=== PATIENT | male | born 1940 | race Caucasian/White ===

== ENCOUNTER 2017-11-16 15:50 | Inpatient (IN) | payer MEDICARE, BC, SELFPAY ==
[2017-11-16] VITALS (13 sets, daily range): BP systolic 128–150; BP diastolic 63–100; PULSE 84–113; RESP 18–28; TEMP 36.9–37.1; O2SAT 82–95; BMI 22.7; BMI 22.8; BMI 21.4
--- NOTE | 2017-11-16 16:06 | EKG12_ITS ---
Test Reason : SOB Blood Pressure : / mmHG Vent. Rate : 100 BPM Atrial Rate : 100 BPM P-R Int : 134 ms QRS Dur : 080 ms QT Int : 342 ms P-R-T Axes : 079 -48 -03 degrees QTc Int : 441 ms Sinus rhythm with occasional Premature ventricular complexes Left anterior fascicular block Nonspecific ST abnormality Abnormal ECG Confirmed by RIKY RAMIREZ, ANDERSON ([id number]), deputy editor in chief SEN ROMAN ([id number]) on 11/19/2017 2:11:01 PM Referred By: GRIFFIN Confirmed By:ANDERSON LAN MD
--- NOTE | 2017-11-16 16:07 | RAD_ITS ---
STUDY: X-RAY CHEST REASON FOR EXAM: Male, 77 years old. Short of breath. TECHNIQUE: Frontal and lateral views of the chest. COMPARISON: None. FINDINGS: There is hyperexpansion of the lungs. There is interstitial density throughout the left lung which could be fibrosis or infiltrate. Bullous disease and areas of scarring are seen in both lungs. No effusions. Normal size heart. Normal mediastinum and tono. Normal visualized pulmonary arteries. There is atherosclerotic calcification of the aortic arch with tortuosity. Normal visualized thoracic spine. Normal visualized ribs, clavicles, and shoulders. There is no demonstrated abnormality of the visualized soft tissue structures of the upper abdomen. RAD/Chest PA and Lateral IMPRESSION: Bullous COPD with fibrosis and scarring. On the left cannot exclude inflammatory infiltrates. Electronically Signed: Jay Jay Gabriel MD at 17:29 EDT , Service support ,
--- NOTE | 2017-11-16 16:14 | ED.VISSUMM ---
- ER Visit Summary Date of Service: 11/16/17 Chief Complaint: Patient presents with increased shortness of breath over the past several days History of Present Illness: The patient is a 77 M who has history of COPD on continuous oxygen. He states his pulse ox ranges between 8890% at rest and drops to the upper 70s with activity. He also increases his oxygen flow with activity. He does complain of subjective fever with chills. Complains of left-sided pleuritic pain. He states he has productive cough of white creamy sputum that looks like melted vanilla ice cream. He denies headache. Denies any ocular, visual auditory symptoms. Denies nasal congestion, rhinorrhea, postnasal drainage. He denies earache or sore throat. He does report palpitations. Does report dyspnea on exertion. He denies orthopnea PND. He denies history coronary disease. Has no history of PE DVT and has no risk factors. He denies any leg pain, swelling discoloration. He denies hematemesis, melena hematochezia. Denies dysuria, frequency, urgency or hematuria. Physical Examination: Vital signs remarkable for heart rate 113 and respiratory to 26. On 3 L his O2 saturations 82%. He appears ill. He is much warmer to touch than documented temperature. Head is atraumatic normocephalic. Pupils are equal round reactive. Extraocular muscles are intact. TMs are pearly white with landmarks noted. Nares patent with no drainage. Posterior pharynx without erythema or exudate. Uvula is midline. There is no dysphonia or dysphasia. Trachea is midline. There is no stridor with auscultation of the neck. Lungs reveal minimal air movement with high-pitched wheezing on forced expiration. Heart is rapid and regular. Abdomen is soft nontender. There is no CVA tenderness noted. There is no asymmetry, swelling, discoloration, leg vein distention, palpable cords or tenderness along the distribution of the deep venous system. He is alert oriented ?3 with a nonfocal neurologic exam. Test Results: EKG reveals a sinus rhythm rate of 100 with a left anterior fascicular block and a flipped T-wave in 3 which is a normal variant. White count elevated 17.6 thousand with 90 segs. BUN and creatinine are 39 2.28. Patient states creatinine baseline is 2.2. Lactate is 1.1. Two-view chest x-ray reveals interstitial changes left side. Emergency Department Course and Treatment: Patient's oxygen was increased to achieve a saturation between 90 and 88%. He will receive 125 mg Solu-Medrol. He states he has not received Solu-Medrol or any steroids for 1 year. At that time he was admitted and diagnosed with pneumonia. Will obtain EKG to rule out cardiac ischemia or evidence of right heart strain to suggest pulmonary embolus. Appropriate blood work was ordered. He also received DuoNeb followed by 2 albuterol treatments. Treatment Plan: Patient has sepsis from Commit acquired pneumonia and exacerbation COPD. He was treated with DuoNeb and albuterol initially. He will receive 1 g Rocephin and 500 mg of azithromycin for community acquired pneumonia. Disposition: Admit MedSurg Impression: 1. Respiratory failure with hypoxia 2. Community acquired pneumonia 3. Exacerbation of COPD with bronchospasm 4. End-stage renal disease This note was generated with [employer] dictation software. It may contain incorrect words, spelling, and punctuation that were not noted in review of the chart prior to signing ED Disposition - Plan for ED Patient: Chief Complaint: Shortness of Breath Referrals: Azael Malone [Primary Care Provider] -
--- NOTE | 2017-11-16 16:17 | ED.DCSUM_ITS ---
- ER Visit Summary Date of Service: 11/16/17 Chief Complaint: Patient presents with increased shortness of breath over the past several days History of Present Illness: The patient is a 77 M who has history of COPD on continuous oxygen. He states his pulse ox ranges between 8890% at rest and drops to the upper 70s with activity. He also increases his oxygen flow with activity. He does complain of subjective fever with chills. Complains of left- sided pleuritic pain. He states he has productive cough of white creamy sputum that looks like melted vanilla ice cream. He denies headache. Denies any ocular, visual auditory symptoms. Denies nasal congestion, rhinorrhea, postnasal drainage. He denies earache or sore throat. He does report palpitations. Does report dyspnea on exertion. He denies orthopnea PND. He denies history coronary disease. Has no history of PE DVT and has no risk factors. He denies any leg pain, swelling discoloration. He denies hematemesis , melena hematochezia. Denies dysuria, frequency, urgency or hematuria. Physical Examination: Vital signs remarkable for heart rate 113 and respiratory to 26. On 3 L his O2 saturations 82%. He appears ill. He is much warmer to touch than documented temperature. Head is atraumatic normocephalic. Pupils are equal round reactive. Extraocular muscles are intact. TMs are pearly white with landmarks noted. Nares patent with no drainage. Posterior pharynx without erythema or exudate. Uvula is midline. There is no dysphonia or dysphasia. Trachea is midline. There is no stridor with auscultation of the neck. Lungs reveal minimal air movement with high-pitched wheezing on forced expiration. Heart is rapid and regular. Abdomen is soft nontender. There is no CVA tenderness noted. There is no asymmetry, swelling, discoloration, leg vein distention, palpable cords or tenderness along the distribution of the deep venous system. He is alert oriented ?3 with a nonfocal neurologic exam. Test Results: EKG reveals a sinus rhythm rate of 100 with a left anterior fascicular block and a flipped T-wave in 3 which is a normal variant. White count elevated 17.6 thousand with 90 segs. BUN and creatinine are 39 2.28. Patient states creatinine baseline is 2.2. Lactate is 1.1. Two-view chest x- ray reveals interstitial changes left side. Emergency Department Course and Treatment: Patient's oxygen was increased to achieve a saturation between 90 and 88%. He will receive 125 mg Solu-Medrol. He states he has not received Solu-Medrol or any steroids for 1 year. At that time he was admitted and diagnosed with pneumonia. Will obtain EKG to rule out cardiac ischemia or evidence of right heart strain to suggest pulmonary embolus. Appropriate blood work was ordered. He also received DuoNeb followed by 2 albuterol treatments. Treatment Plan: Patient has sepsis from Commit acquired pneumonia and exacerbation COPD. He was treated with DuoNeb and albuterol initially. He will receive 1 g Rocephin and 500 mg of azithromycin for community acquired pneumonia. Disposition: Admit MedSurg Impression: 1. Respiratory failure with hypoxia 2. Community acquired pneumonia 3. Exacerbation of COPD with bronchospasm 4. End-stage renal disease This note was generated with [employer] dictation software. It may contain incorrect words, spelling, and punctuation that were not noted in review of the chart prior to signing ED Disposition - Plan for ED Patient: Chief Complaint: Shortness of Breath Referrals: Azael Malone [Primary Care Provider] -
[2017-11-16] MEDS: Ipratropium/Albuterol Sulfate 3 ML AMPUL.NEB INHALATION ×3 (16:27→22:40)
[2017-11-16] MEDS: Albuterol 2.5 MG/3 ML VIAL.NEB. INHALATION ×3 (16:27)
[2017-11-16] MEDS: MethylPREDNISolone 125 MG/2 ML Vial IV (16:49)
[2017-11-16 16:56] LABS: Absolute Lymphocyte Count 0.48 X10^3/ul (0.83-4.51); Absolute Neutrophil Count 15.9 X10^3/uL (2.0-7.7); Basophil# 0.02 X10^3/uL; Basophil% 0.1 % (0-1); Eosinophil# 0.01 X10^3/uL; Eosinophils% 0.1 % (0-5); Hematocrit 39.7 % (40-54); Hemoglobin 14.5 g/dl (13.0-16.5); Lymphocyte # 0.48 X10^3/ul (4.0); Lymphocyte % 2.7 % (19-41); Mean Corp Hgb Conc 36.5 g/gl (32-36); Mean Corpuscular Hgb 39.1 pg (27.0-32.0); Mean Platelet Vol. 11.7 fl (6.2-12.0); Monocyte% 6.2 % (0-10); Neutrophil # 15.91 X10^3/uL (2.7-7.7); Neutrophil % 90.2 % (47-70); Platelet Count 133 K/mm3 (150-450); RBC Distribution Width CV 14.3 % (11.6-14.6); RBC Distribution Width SD 55.9 fl (35.1-43.9); Red Blood Count 3.71 M/mm3 (4.6-6.2); White Blood Count 17.6 K/mm3 (4.4-11.0)
[2017-11-16 17:02] LABS: POSITIVE COUNT NO; POSITIVE DIFFERENTIAL YES; POSITIVE MORPHOLOGY NO
[2017-11-16 17:03] LABS: Differential Indicated SCAN CRITERIA MET
[2017-11-16 17:05] LABS: Anion Gap 10 (5-15); BUN 39 mg/dL (7-18); BUN/Creat Ratio 17.1 RATIO (10-20); Calcium,Total 9.1 mg/dL (8.5-10.1); Chloride 108 mmol/L (98-107); Creatinine, Serum 2.28 mg/dL (0.70-1.30); EST Glomerular Filtration Rate 30 mL/min (>60); Est Glom Filt Rate - Afr Amer 36 mL/min (>60); Glucose 105 mg/dL (74-106); Potassium 4.6 mmol/L (3.5-5.1); Sodium Level 140 mmol/L (136-145)
[2017-11-16 17:09] LABS: Lactic Acid 1.1 mmol/L (0.4-2.0)
--- NOTE | 2017-11-16 17:50 | PCM.HP.STD ---
<Camilla Miller - Last Filed: 11/16/17 18:12> Problem List (1) CKD (chronic kidney disease) stage 3, GFR 30-59 ml/min Status: Chronic (2) COPD (chronic obstructive pulmonary disease) Status: Chronic (3) Chronic respiratory failure with hypoxia Status: Chronic (4) Gout Status: Chronic (5) History of bladder cancer Status: Chronic (6) HTN (hypertension) Status: Chronic (7) HLD (hyperlipidemia) Status: Chronic (8) GERD (gastroesophageal reflux disease) Status: Chronic History of Present Illness Date of Admission: 11/16/17 Chief Complaint: Worsening shortness of breath. The patient is a 77 year old M who presents to the emergency room with worsening shortness of breath which began this morning. Patient states he has had ongoing shortness of breath beyond his baseline for the past few weeks. He states he attributed it to the hot temperature and humidity. Today, he states he went out golfing since the weather was cooler and developed significant shortness of breath. He denies fever, reports chills. Reports chronic productive cough of vanilla sputum. Denies chest pain. Patient has required supplemental oxygen since 2008 and recently has required oxygen above his baseline. He typically wears 2-3 L nasal cannula. In the past he states he has only needed oxygen at night however recently has been wearing it continuously to maintain oxygen saturation. Patient follows with a airport operations coordinator in [place]. He had a recent CT scan at [facility]. He is unaware of the results of this. Patient states a year ago he was admitted to [facility] with pneumonia and MRSA in sputum. He states his hospital stay was 22 days. He states during his stay, the doctors wanted to do a bronchoscopy but were unable to due to patient unable to maintain adequate oxygen saturation. Patient and moved to [place] in the past few months and wished to obtain pulmonary care in [place]. He has a past medical history of hypertension, hyperlipidemia, GERD, gout, history of bladder cancer, COPD with chronic hypoxic respiratory failure, chronic kidney disease stage III. Past Medical History Past Medical History (Chronic Problems): Chronic Problems CKD (chronic kidney disease) stage 3, GFR 30-59 ml/min (Chronic) COPD (chronic obstructive pulmonary disease) (Chronic) Chronic respiratory failure with hypoxia (Chronic) Gout (Chronic) History of bladder cancer (Chronic) HTN (hypertension) (Chronic) HLD (hyperlipidemia) (Chronic) GERD (gastroesophageal reflux disease) (Chronic) Allergies No Known Allergies Allergy (Verified 11/16/17 15:59) Home Medications: Ambulatory Orders Medication Instructions Recorded Allopurinol [Zyloprim] 200 mg PO DAILY 11/16/17 Aspirin [Aspirin, Baby] 81 mg PO QHS 11/16/17 Cyanocobalamin [Vitamin B12] 1,000 mcg PO DAILY@0800 11/16/17 Fluticasone/Vilanterol [Breo 1 puff INHALATION DAILY 11/16/17 Ellipta 100-25 Mcg INH] Metoprolol Succinate 12.5 mg PO DAILY 11/16/17 Omeprazole 20 mg PO QHS 11/16/17 Tiotropium [place] [Spiriva] 1 puff INHALATION DAILY 11/16/17 hydrALAZINE [Apresoline] 50 mg PO BID 11/16/17 Surgical History: adenoidectomy, TURP, - - Right carotid endarterectomy Psychiatric History: No pertinent psych hx Lives: Spouse/ Significant Other Smoking Status: Former smoker - 45 year smoking history Alcohol: Occasional - 2-3 times per week Drugs: None - *Family History Maternal History Items: Cancer - Lung Paternal History Items: Heart Disease - Pacemaker Review of Systems Constitutional: Reports: Chills. Denies: Fever, Weight Change HEENT: Denies: Head Aches, Sinus Congestion, Sinus Drainage Cardiovascular: Denies: Chest Pain, Edema, Light Headedness, Palpitations, Syncope Respiratory: Reports: Cough, Shortness of breath at rest, Shortness of breath upon exertion, Sputum production - White colored, Wheezing Gastrointestinal: Denies: Abdominal Pain, Nausea, Vomiting Genitourinary: Denies: Dysuria Musculoskeletal: Denies: Joint Pain, Joint Tenderness Skin: Denies: Rash, Wounds Neurological: Denies: Numbness, Tingling, Focal weakness Psychiatric: Denies: Anxiety, Depression, Homicidal Ideations, Suicidal Ideations Hematologic/ Lymphatic: Denies: Easy Bruising, Easy Bleeding VTE Information - Inpt Only VTE Present on Admission: No VTE Mechan Device Prophylaxis: None VTE Pharm Prophylaxis ordered?: Yes - Physical Exam General: Alert, Oriented x3, Cooperative, - - Face appears flushed, mild respiratory distress HEENT: Atraumatic, PERRLA, EOMI, Normocephalic Oral: Dry Mucosa Neck: Supple, No JVD, Negative Carotid Bruits Lungs: Diminished, Wheezes - Minimal faint expiratory wheezes Cardiovascular: Regular Rhythm, Normal S1, Normal S2, No murmurs, Tachycardic Abdomen: Bowel Sounds Present, Soft, Non Tender, Non-Distended Extremities: No clubbing, No cyanosis, No edema, Capillary Refill Less than 3 Seconds Skin: No rashes, No breakdown Musculoskeletal: No Tenderness to Palpation of Joints or Extremities Neurological: Cranial nerves II-XII grossly intact, Neuro grossly intact Psych/Mental Status: Normal Affect, Appropriate Vital Signs Temp Pulse Resp BP Pulse Ox 98.6 F 108 H 24 H 150/100 H 89 11/16/17 15:55 11/16/17 16:30 11/16/17 16:30 11/16/17 15:55 11/16/17 16:30 Oxygen Flow Rate (L/min) 6 Oxygen Delivery Method Nasal Cannula Weight: 74 kg Body Mass Index (BMI) 22.7 Laboratory Tests Past 24 Hrs 11/16/17 11/16/17 11/16/17 16:22 16:22 16:22 WBC 17.6 H RBC 3.71 L Hgb 14.5 Hct 39.7 L MCV 107.0 H MCH 39.1 H MCHC 36.5 H RDW 14.3 RDW Differential 55.9 H Plt Count 133 L MPV 11.7 Immature Gran % (Auto) 0.700 Neut % (Auto) 90.2 H Lymph % (Auto) 2.7 L [place] % (Auto) 6.2 Eos % (Auto) 0.1 Baso % (Auto) 0.1 Absolute Neuts (auto) 15.9 H Absolute Lymphs (auto) 0.48 L Total Counted Not Reportable Differential Comment Sodium 140 Potassium 4.6 Chloride 108 H Carbon Dioxide 22.0 Anion Gap 10 BUN 39 H Creatinine 2.28 H Estim Creat Clear Calc 29.30 Est GFR (MDRD) Af Amer 36 L Est GFR (MDRD) Non-Af 30 L BUN/Creatinine Ratio 17.1 Glucose 105 Lactic Acid 1.1 Calcium 9.1 Assessment/Plan 1. Acute COPD exacerbation secondary to suspected community-acquired pneumonia-patient with productive cough, fever, chills. WBC 17.6. Patient with mild tachycardia. 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 Cannot exclude inflammatory infiltrates on the left. Patient has a history of MRSA in sputum. Obtain sputum culture. Begin IV Levaquin. Begin IV Solu-Medrol. Check urine for strep and Legionella. Obtain complete respiratory panel. Continue supplemental oxygen to maintain O2 at or above 90%. Albuterol and DuoNeb aerosols. Consult pulmonary medicine. Patient would like to transition care to [facility]. Patient reports recent CTA chest at [facility]. Request records. 2. Acute hypoxia on chronic hypoxic respiratory failure-secondary to #1. Continue supplemental oxygen to maintain O2 at or above 90%. Albuterol and DuoNeb aerosols. 3. Chronic kidney disease stage III-patient reports baseline creatinine 2.2-2.3. Follows with heavy equipment technician in [place]. Creatinine on admission 2.2. Trend BMP. 4. Hypertension-stable, continue home regimen including hydralazine and metoprolol. 5. Hyperlipidemia-patient reports intolerance to statins. Check fasting lipid panel in a.m. If elevated, can begin fenofibrate and or omega-3 fatty acids. 6. GERD-continue PPI. 7. Gout-continue home allopurinol regimen. 8. History of bladder cancer 9. History of tobacco use-quit in 2008. [id number] history. DVT prophylaxis-heparin subcu. This patient was seen by YONI Robert under the supervision of Dr. Sanz. <Patricia Sanz E - Last Filed: 11/16/17 18:27> History of Present Illness The patient is a 77 year old M [] Past Medical History Allergies No Known Allergies Allergy (Verified 11/16/17 15:59) - Physical Exam Vital Signs Temp Pulse Resp BP Pulse Ox 98.6 F 110 H 24 H 149/65 H 90 11/16/17 15:55 11/16/17 17:54 11/16/17 17:54 11/16/17 17:54 11/16/17 17:54 Oxygen Flow Rate (L/min) 6 Oxygen Delivery Method Nasal Cannula Weight: 163 lb 2.273 oz Body Mass Index (BMI) 22.7 Laboratory Tests Past 24 Hrs 11/16/17 11/16/17 11/16/17 16:22 16:22 16:22 WBC 17.6 H RBC 3.71 L Hgb 14.5 Hct 39.7 L MCV 107.0 H MCH 39.1 H MCHC 36.5 H RDW 14.3 RDW Differential 55.9 H Plt Count 133 L MPV 11.7 Immature Gran % (Auto) 0.700 Neut % (Auto) 90.2 H Lymph % (Auto) 2.7 L [place] % (Auto) 6.2 Eos % (Auto) 0.1 Baso % (Auto) 0.1 Absolute Neuts (auto) 15.9 H Absolute Lymphs (auto) 0.48 L Total Counted Not Reportable Differential Comment Sodium 140 Potassium 4.6 Chloride 108 H Carbon Dioxide 22.0 Anion Gap 10 BUN 39 H Creatinine 2.28 H Estim Creat Clear Calc 29.30 Est GFR (MDRD) Af Amer 36 L Est GFR (MDRD) Non-Af 30 L BUN/Creatinine Ratio 17.1 Glucose 105 Lactic Acid 1.1 Calcium 9.1 Assessment/Plan Hospitalist note: I am seeing this patient in conjunction with Camilla Miller. I independently seen and examined the patient. History and physical, laboratory data and imaging studies reviewed and I agree with above admission treatment plan. Patient presented to the medicine because of worsening shortness of breath over the last few days, got more worse this morning. It is associated with cough with small amount of yellow sputum. Denies fever or chills. He denied chest pain, palpitation, dizziness or lightheadedness. He does have history of severe COPD, has been on home oxygen since 2008. History of hypertension and she has been on metoprolol and hydralazine and his blood pressure seems to be under control. He has history of gout and he has been on allopurinol. He has a history of stage III chronic kidney disease and according to him, his baseline creatinine has been around 2.2. At this time, he is tachycardic, blood pressure stable, pulse ox is 93% on 6 L. - Physical Exam General: Alert, Oriented x3, Cooperative, moderately short of breath. HEENT: Atraumatic, PERRLA, EOMI. Neck: Supple, No JVD, Negative Carotid Bruits, Trachea Midline, Thyroid Normal. Lungs: Decreased breath sounds bilaterally, bilateral expiratory wheezes,?? Bronchial breathing on the left side, short of breath, dyspneic. Cardiovascular: Regular rate, Regular Rhythm, Normal S1, Normal S2, PMI Normal, tachycardia. Abdomen: Bowel Sounds Present, Soft, Non Tender, Non-Distended, No Hepato-splenomegaly. Extremities: No clubbing, No cyanosis, No edema Skin: No rashes, No breakdown Neurological: Neuro grossly intact Assessment and plan: #1 acute COPD exacerbation: Plan for bronchodilators, IV steroids, IV antibiotics, chest physical therapy, sputum culture, respiratory panel for viruses, incentive spirometer, pulmonology consult. #2 acute on chronic hypoxic respiratory failure: Patient has been on oxygen at 2 L, at this time, he is up to 6 L. It is secondary to above, plan as above, ABG, pulmonary consult. #3 suspected metabolic pneumonia: Chest x-ray reviewed, revealed left mid and lower zone reticular shadowing, could be infiltrate. No previous x-ray to compare. Plan for sputum culture, IV Levaquin. #3 other chronic medical problems: Stable, continue current medications as above. This note was generated with [employer] dictation software. It may contain incorrect words, spelling, and punctuation that were not noted in checking the note before signing. Code Visit Inpatient E&M: 73979 Init Hosp L3
[2017-11-16] MEDS: Ceftriaxone 1 GM/50 ML BAG IV (17:54)
--- NOTE | 2017-11-16 17:58 | HP.PCM_ITS ---
<Camilla Miller - Last Filed: 11/16/17 18:12> Problem List (1) CKD (chronic kidney disease) stage 3, GFR 30-59 ml/min Status: Chronic (2) COPD (chronic obstructive pulmonary disease) Status: Chronic (3) Chronic respiratory failure with hypoxia Status: Chronic (4) Gout Status: Chronic (5) History of bladder cancer Status: Chronic (6) HTN (hypertension) Status: Chronic (7) HLD (hyperlipidemia) Status: Chronic (8) GERD (gastroesophageal reflux disease) Status: Chronic History of Present Illness Date of Admission: 11/16/17 Chief Complaint: Worsening shortness of breath. The patient is a 77 year old M who presents to the emergency room with worsening shortness of breath which began this morning. Patient states he has had ongoing shortness of breath beyond his baseline for the past few weeks. He states he attributed it to the hot temperature and humidity. Today, he states he went out golfing since the weather was cooler and developed significant shortness of breath. He denies fever, reports chills. Reports chronic productive cough of vanilla sputum. Denies chest pain. Patient has required supplemental oxygen since 2008 and recently has required oxygen above his baseline. He typically wears 2-3 L nasal cannula. In the past he states he has only needed oxygen at night however recently has been wearing it continuously to maintain oxygen saturation. 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 He had a recent CT scan at [facility]. He is unaware of the results of this. Patient states a year ago he was admitted to [facility] with pneumonia and MRSA in sputum. He states his hospital stay was 22 days. He states during his stay, the doctors wanted to do a bronchoscopy but were unable to due to patient unable to maintain adequate oxygen saturation. Patient and moved to [place] in the past few months and wished to obtain pulmonary care in [place]. He has a past medical history of hypertension, hyperlipidemia, GERD, gout, history of bladder cancer, COPD with chronic hypoxic respiratory failure, chronic kidney disease stage III. Past Medical History Past Medical History (Chronic Problems): Chronic Problems CKD (chronic kidney disease) stage 3, GFR 30-59 ml/min (Chronic) COPD (chronic obstructive pulmonary disease) (Chronic) Chronic respiratory failure with hypoxia (Chronic) Gout (Chronic) History of bladder cancer (Chronic) HTN (hypertension) (Chronic) HLD (hyperlipidemia) (Chronic) GERD (gastroesophageal reflux disease) (Chronic) Allergies No Known Allergies Allergy (Verified 11/16/17 15:59) Home Medications: Ambulatory Orders Medication Instructions Recorded Allopurinol [Zyloprim] 200 mg PO DAILY 11/16/17 Aspirin [Aspirin, Baby] 81 mg PO QHS 11/16/17 Cyanocobalamin [Vitamin B12] 1,000 mcg PO DAILY@0800 11/16/17 Fluticasone/Vilanterol [Breo 1 puff INHALATION DAILY 11/16/17 Ellipta 100-25 Mcg INH] Metoprolol Succinate 12.5 mg PO DAILY 11/16/17 Omeprazole 20 mg PO QHS 11/16/17 Tiotropium [place] [Spiriva] 1 puff INHALATION DAILY 11/16/17 hydrALAZINE [Apresoline] 50 mg PO BID 11/16/17 Surgical History: adenoidectomy, TURP, - - Right carotid endarterectomy Psychiatric History: No pertinent psych hx Lives: Spouse/ Significant Other Smoking Status: Former smoker - 45 year smoking history Alcohol: Occasional - 2-3 times per week Drugs: None - *Family History Maternal History Items: Cancer - Lung Paternal History Items: Heart Disease - Pacemaker Review of Systems Constitutional: Reports: Chills. Denies: Fever, Weight Change HEENT: Denies: Head Aches, Sinus Congestion, Sinus Drainage Cardiovascular: Denies: Chest Pain, Edema, Light Headedness, Palpitations, Syncope Respiratory: Reports: Cough, Shortness of breath at rest, Shortness of breath upon exertion, Sputum production - White colored, Wheezing Gastrointestinal: Denies: Abdominal Pain, Nausea, Vomiting Genitourinary: Denies: Dysuria Musculoskeletal: Denies: Joint Pain, Joint Tenderness Skin: Denies: Rash, Wounds Neurological: Denies: Numbness, Tingling, Focal weakness Psychiatric: Denies: Anxiety, Depression, Homicidal Ideations, Suicidal Ideations Hematologic/ Lymphatic: Denies: Easy Bruising, Easy Bleeding VTE Information - Inpt Only VTE Present on Admission: No VTE Mechan Device Prophylaxis: None VTE Pharm Prophylaxis ordered?: Yes - Physical Exam General: Alert, Oriented x3, Cooperative, - - Face appears flushed, mild respiratory distress HEENT: Atraumatic, PERRLA, EOMI, Normocephalic Oral: Dry Mucosa Neck: Supple, No JVD, Negative Carotid Bruits Lungs: Diminished, Wheezes - Minimal faint expiratory wheezes Cardiovascular: Regular Rhythm, Normal S1, Normal S2, No murmurs, Tachycardic Abdomen: Bowel Sounds Present, Soft, Non Tender, Non-Distended Extremities: No clubbing, No cyanosis, No edema, Capillary Refill Less than 3 Seconds Skin: No rashes, No breakdown Musculoskeletal: No Tenderness to Palpation of Joints or Extremities Neurological: Cranial nerves II-XII grossly intact, Neuro grossly intact Psych/Mental Status: Normal Affect, Appropriate Vital Signs Temp Pulse Resp BP Pulse Ox 98.6 F 108 H 24 H 150/100 H 89 11/16/17 15:55 11/16/17 16:30 11/16/17 16:30 11/16/17 15:55 11/16/17 16:30 Oxygen Flow Rate (L/min) 6 Oxygen Delivery Method Nasal Cannula Weight: 74 kg Body Mass Index (BMI) 22.7 Laboratory Tests Past 24 Hrs 11/16/17 11/16/17 11/16/17 16:22 16:22 16:22 WBC 17.6 H RBC 3.71 L Hgb 14.5 Hct 39.7 L MCV 107.0 H MCH 39.1 H MCHC 36.5 H RDW 14.3 RDW Differential 55.9 H Plt Count 133 L MPV 11.7 Immature Gran % (Auto) 0.700 Neut % (Auto) 90.2 H Lymph % (Auto) 2.7 L [place] % (Auto) 6.2 Eos % (Auto) 0.1 Baso % (Auto) 0.1 Absolute Neuts (auto) 15.9 H Absolute Lymphs (auto) 0.48 L Total Counted Not Reportable Differential Comment Sodium 140 Potassium 4.6 Chloride 108 H Carbon Dioxide 22.0 Anion Gap 10 BUN 39 H Creatinine 2.28 H Estim Creat Clear Calc 29.30 Est GFR (MDRD) Af Amer 36 L Est GFR (MDRD) Non-Af 30 L BUN/Creatinine Ratio 17.1 Glucose 105 Lactic Acid 1.1 Calcium 9.1 Assessment/Plan 1. Acute COPD exacerbation secondary to suspected community-acquired pneumonia- patient with productive cough, fever, chills. WBC 17.6. Patient with mild tachycardia. 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 Cannot exclude inflammatory infiltrates on the left. Patient has a history of MRSA in sputum. Obtain sputum culture. Begin IV Levaquin. Begin IV Solu- Medrol. Check urine for strep and Legionella. Obtain complete respiratory panel. Continue supplemental oxygen to maintain O2 at or above 90%. Albuterol and DuoNeb aerosols. Consult pulmonary medicine. Patient would like to transition care to [facility]. Patient reports recent CTA chest at [facility]. Request records. 2. Acute hypoxia on chronic hypoxic respiratory failure-secondary to #1. Continue supplemental oxygen to maintain O2 at or above 90%. Albuterol and DuoNeb aerosols. 3. Chronic kidney disease stage III-patient reports baseline creatinine 2.2- 2.3. Follows with manager care in [place]. Creatinine on admission 2.2. Trend BMP. 4. Hypertension-stable, continue home regimen including hydralazine and metoprolol. 5. Hyperlipidemia-patient reports intolerance to statins. Check fasting lipid panel in a.m. If elevated, can begin fenofibrate and or omega-3 fatty acids. 6. GERD-continue PPI. 7. Gout-continue home allopurinol regimen. 8. History of bladder cancer 9. History of tobacco use-quit in 2008. [id number] history. DVT prophylaxis-heparin subcu. This patient was seen by YONI Robert under the supervision of Dr. Sanz. <Patricia Sanz E - Last Filed: 11/16/17 18:27> History of Present Illness The patient is a 77 year old M [] Past Medical History Allergies No Known Allergies Allergy (Verified 11/16/17 15:59) - Physical Exam Vital Signs Temp Pulse Resp BP Pulse Ox 98.6 F 110 H 24 H 149/65 H 90 11/16/17 15:55 11/16/17 17:54 11/16/17 17:54 11/16/17 17:54 11/16/17 17:54 Oxygen Flow Rate (L/min) 6 Oxygen Delivery Method Nasal Cannula Weight: 163 lb 2.273 oz Body Mass Index (BMI) 22.7 Laboratory Tests Past 24 Hrs 11/16/17 11/16/17 11/16/17 16:22 16:22 16:22 WBC 17.6 H RBC 3.71 L Hgb 14.5 Hct 39.7 L MCV 107.0 H MCH 39.1 H MCHC 36.5 H RDW 14.3 RDW Differential 55.9 H Plt Count 133 L MPV 11.7 Immature Gran % (Auto) 0.700 Neut % (Auto) 90.2 H Lymph % (Auto) 2.7 L [place] % (Auto) 6.2 Eos % (Auto) 0.1 Baso % (Auto) 0.1 Absolute Neuts (auto) 15.9 H Absolute Lymphs (auto) 0.48 L Total Counted Not Reportable Differential Comment Sodium 140 Potassium 4.6 Chloride 108 H Carbon Dioxide 22.0 Anion Gap 10 BUN 39 H Creatinine 2.28 H Estim Creat Clear Calc 29.30 Est GFR (MDRD) Af Amer 36 L Est GFR (MDRD) Non-Af 30 L BUN/Creatinine Ratio 17.1 Glucose 105 Lactic Acid 1.1 Calcium 9.1 Assessment/Plan Hospitalist note: I am seeing this patient in conjunction with Camilla Miller. I independently seen and examined the patient. History and physical, laboratory data and imaging studies reviewed and I agree with above admission treatment plan. Patient presented to the medicine because of worsening shortness of breath over the last few days, got more worse this morning. It is associated with cough with small amount of yellow sputum. Denies fever or chills. He denied chest pain, palpitation, dizziness or lightheadedness. He does have history of severe COPD, has been on home oxygen since 2008. History of hypertension and she has been on metoprolol and hydralazine and his blood pressure seems to be under control. He has history of gout and he has been on allopurinol. He has a history of stage III chronic kidney disease and according to him, his baseline creatinine has been around 2.2. At this time, he is tachycardic, blood pressure stable, pulse ox is 93% on 6 L. - Physical Exam General: Alert, Oriented x3, Cooperative, moderately short of breath. HEENT: Atraumatic, PERRLA, EOMI. Neck: Supple, No JVD, Negative Carotid Bruits, Trachea Midline, Thyroid Normal. Lungs: Decreased breath sounds bilaterally, bilateral expiratory wheezes,?? Bronchial breathing on the left side, short of breath, dyspneic. Cardiovascular: Regular rate, Regular Rhythm, Normal S1, Normal S2, PMI Normal, tachycardia. Abdomen: Bowel Sounds Present, Soft, Non Tender, Non-Distended, No Hepato- splenomegaly. Extremities: No clubbing, No cyanosis, No edema Skin: No rashes, No breakdown Neurological: Neuro grossly intact Assessment and plan: #1 acute COPD exacerbation: Plan for bronchodilators, IV steroids, IV antibiotics, chest physical therapy, sputum culture, respiratory panel for viruses, incentive spirometer, pulmonology consult. #2 acute on chronic hypoxic respiratory failure: Patient has been on oxygen at 2 L, at this time, he is up to 6 L. It is secondary to above, plan as above, ABG, pulmonary consult. #3 suspected metabolic pneumonia: Chest x-ray reviewed, revealed left mid and lower zone reticular shadowing, could be infiltrate. No previous x-ray to compare. Plan for sputum culture, IV Levaquin. #3 other chronic medical problems: Stable, continue current medications as above. This note was generated with [employer] dictation software. It may contain incorrect words, spelling, and punctuation that were not noted in checking the note before signing. Code Visit Inpatient E&M: 09872 Init Hosp L3
--- NOTE | 2017-11-16 18:01 | NURSING ---
MED SURG COOPD EXAC, ACUTE ON CHRONIC RESP FAILURE, PNEUMONIA SALLY
[2017-11-16 20:21] LABS: Allen Test POS; Base Excess -8 mmol/L (-2 to +2); Blood Gas Specimen Type ART; O2 Delivery Device Nasal Can; PO2 71 mmHG (75-100); SITE R Radial; SO2 94 % (95-99); Time Given 2010; Total Carbon Dioxide 18 mmol/L; pCO2 29.4 mmHg (35-45); pH 7.37 (7.35-7.45)
[2017-11-16] MEDS: Heparin Injection (Vial) 5,000 UNIT/ML VIAL 5000 UNIT SC (22:53)
[2017-11-16] MEDS: 0.9% NaCl Peripheral Flush Adult/Peds IV (22:53)
[2017-11-16] MEDS: levoFLOXacin IV 750 MG/150 ML BAG 100 MG IV (22:54)
[2017-11-17] VITALS (18 sets, daily range): BP systolic 130–169; BP diastolic 62–85; PULSE 78–111; RESP 19–24; TEMP 36.6–36.7; O2SAT 89–94
[2017-11-17] MEDS: Fluticasone 0.05% 1 SPRAY NASAL.SRY NASAL ×2 (05:58→21:55)
[2017-11-17] MEDS: 0.9% NaCl Peripheral Flush Adult/Peds IV ×3 (06:00→13:29)
[2017-11-17] MEDS: Heparin Injection (Vial) 5,000 UNIT/ML VIAL 5000 UNIT SC ×3 (06:03→21:54)
[2017-11-17] MEDS: Ipratropium/Albuterol Sulfate 3 ML AMPUL.NEB INHALATION ×4 (07:17→23:01)
--- NOTE | 2017-11-17 07:19 | PCM.PN.HOSP ---
Subjective: Patient is a 77-year-old with past medical history notable for chronic hypoxic respiratory failure secondary to COPD who presented with progressive shortness of breath again imaging studies 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 On the left cannot exclude inflammatory infiltrates; admitted to regular nursing floor where patient has since been managed. Objective: GENERAL: Dyspneic at rest HEENT: Clear conjunctiva, moist oral mucosa NECK; supple, normal thyroid, no distended JVD. CHEST: Markedly diminished to auscultation with bilateral wheezes HEART: Regular S1 S2, no audible murmurs ABDOMEN: soft, non-tender, normoactive bowel sounds, RECTAL: deferred EXTREMITIES: No edema, no clubbing, no cyanosis. FOUNDRY MOLDER: Awake; no lateralizing signs. SKIN: No Rash Vitals/I&O's: Vital Signs Temp Pulse Resp BP Pulse Ox 97.8 F 95 22 H 142/67 H 93 11/17/17 04:00 11/17/17 04:00 11/17/17 04:00 11/17/17 04:00 11/17/17 04:00 Oxygen Flow Rate (L/min) 4 Oxygen Delivery Method Nasal Cannula Weight: 69.853 kg Body Mass Index (BMI) 21.4 Intake and Output for Last 24 Hours 11/15/17 11/16/17 11/17/17 23:59 23:59 23:59 Intake Total 2700 / 2700 Output Total 0 / 0 Balance 2700 / 2700 Microbiology Past 72 Hours 11/16/17 20:00 Sputum, Expectorated/Coughed Gram Stain - Preliminary Laboratory Results 11/16/17 20:14: Specimen Type ART, Sample Site R Radial, pH 7.37, Bicarbonate Actual 17.0 L, POC Total CO2 18, Base Excess -8 L, O2 Saturation 94 L, ABG pCO2 29.4 L, ABG pO2 71 L, Humberto Test POS, O2 Delivery Device Nasal Can, Liter Flow 6.0, Blood Gas Notified Whom HOSP , Blood Gas Notified Time 2009 Current Medications Acetaminophen (Tylenol) 650 mg PO Q6H PRN PRN PRN Reason: Mild Pain (scale 0-3)/T>100.7 Albuterol Sulfate (Ventolin Aerosols) 2.5 mg INHALATION Q2H PRN PRN PRN Reason: SHORTNESS OF BREATH Albuterol/Ipratropium (Duoneb) 3 ml INHALATION Q4H.RT [facility] Last Admin: 11/17/17 07:17 Dose: 3 ml Allopurinol (Zyloprim) 200 mg PO DAILY [facility] Aspirin (Aspirin, Baby) 81 mg PO QHS [facility] Cyanocobalamin (Vitamin B12) 1,000 mcg PO DAILY@0800 [facility] Fluticasone Propionate (Flonase Nasal [place]) 1 spray NASAL DAILY PRN PRN Reason: ALLERGIES Last Admin: 11/17/17 05:58 Dose: 1 spray Heparin Sodium (Porcine) (Heparin Na) 5,000 unit SC Q8 [facility] Last Admin: 11/17/17 06:03 Dose: 5,000 units Hydralazine HCl (Apresoline) 50 mg PO BID [facility] Levofloxacin (Levaquin Iv) 750 mg in 150 mls @ 100 mls/hr IV Q48H [facility] Last Admin: 11/16/17 22:54 Dose: 100 mls/hr Magnesium Hydroxide (Milk Of Magnesia) 30 ml PO DAILY PRN PRN PRN Reason: Constipation Methylprednisolone (Solu-Medrol) 40 mg IV Q8 [facility] Last Admin: 11/17/17 06:02 Dose: 40 mg Metoprolol Succinate (Toprol Xl (Beta Sergio)) 12.5 mg PO DAILY [facility] Ondansetron HCl (Zofran) 4 mg IV Q8H PRN PRN PRN Reason: Nausea Pantoprazole Sodium (Protonix) 20 mg PO QHS [facility] Sodium Chloride () 5 - 30 ml IV UD PRN PRN Reason: SALINE FLUSH Last Admin: 11/17/17 06:00 Dose: 10 ml Medical Necessity - Tobacco Use Smoking Status: Former smoker Assessment/Plan Patient is a 77-year-old with past medical history notable for chronic hypoxic respiratory failure secondary to COPD who presented with progressive shortness of breath again imaging studies 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 On the left cannot exclude inflammatory infiltrates; admitted to regular nursing floor where patient has since been managed. 1. Acute on chronic hypoxic respiratory failure secondary to COPD exacerbation 2. COPD exacerbation possibly preceded by suspected community-acquired pneumonia admitted to regular nursing floor managed with systemic steroid, bronchodilator therapy as well as antibiotics with Levaquin 3. Chronic hypoxic respiratory failure secondary to COPD patient is on baseline home O2 4. Chronic kidney disease stage III-10 kidney function at baseline 5. Hypertension-blood pressure controlled, home medications continued with dose adjustment as needed 6. Dyslipidemia- 7. Hiatal hernia with reflux symptoms patient is on PPI 8. Gout patient is on allopurinol did continue home dose 9. History of bladder CA currently in remission 10. [id number] history of tobacco use patient did quit in 2008 11. DVT prophylaxis SC heparin 12. Postnasal drip patient is on nasocort Active Medications Acetaminophen (Tylenol) 650 mg PO Q6H PRN PRN PRN Reason: Mild Pain (scale 0-3)/T>100.7 Albuterol Sulfate (Ventolin Aerosols) 2.5 mg INHALATION Q2H PRN PRN PRN Reason: SHORTNESS OF BREATH Albuterol/Ipratropium (Duoneb) 3 ml INHALATION Q4H.RT [facility] Last Admin: 11/17/17 07:17 Dose: 3 ml Allopurinol (Zyloprim) 200 mg PO DAILY [facility] Aspirin (Aspirin, Baby) 81 mg PO QHS [facility] Cyanocobalamin (Vitamin B12) 1,000 mcg PO DAILY@0800 [facility] Fluticasone Propionate (Flonase Nasal [place]) 1 spray NASAL DAILY PRN PRN Reason: ALLERGIES Last Admin: 11/17/17 05:58 Dose: 1 spray Heparin Sodium (Porcine) (Heparin Na) 5,000 unit SC Q8 [facility] Last Admin: 11/17/17 06:03 Dose: 5,000 units Hydralazine HCl (Apresoline) 50 mg PO BID [facility] Levofloxacin (Levaquin Iv) 750 mg in 150 mls @ 100 mls/hr IV Q48H [facility] Last Admin: 11/16/17 22:54 Dose: 100 mls/hr Magnesium Hydroxide (Milk Of Magnesia) 30 ml PO DAILY PRN PRN PRN Reason: Constipation Methylprednisolone (Solu-Medrol) 40 mg IV Q8 [facility] Last Admin: 11/17/17 06:02 Dose: 40 mg Metoprolol Succinate (Toprol Xl (Beta Sergio)) 12.5 mg PO DAILY [facility] Ondansetron HCl (Zofran) 4 mg IV Q8H PRN PRN PRN Reason: Nausea Pantoprazole Sodium (Protonix) 20 mg PO QHS [facility] Sodium Chloride () 5 - 30 ml IV UD PRN PRN Reason: SALINE FLUSH Last Admin: 11/17/17 06:00 Dose: 10 ml Clinical Impression(s) from Imaging Studies Chest X-Ray 11/16/17 16:07 IMPRESSION: Bullous COPD with fibrosis and scarring. On the left cannot exclude inflammatory infiltrates. Electronically Signed: Jay Jay Gabriel MD at 17:29 EDT , Service support , Code Visit Inpatient E&M: 10163 Subs Hosp L3
[2017-11-17] MEDS: Allopurinol 100 MG Tablet 200 MG PO (08:05)
[2017-11-17] MEDS: Metoprolol(XL)Succ 25 MG Tablet 12.5 MG PO (08:05)
[2017-11-17] MEDS: Cyanocobalamin 500 MCG Tablet 1000 MCG PO (08:05)
[2017-11-17] MEDS: hydrALAZINE 50 MG Tablet PO ×2 (08:06→21:54)
[2017-11-17 08:54] LABS: Absolute Lymphocyte Count 0.83 X10^3/ul (0.83-4.51); Absolute Neutrophil Count 23.3 X10^3/uL (2.0-7.7); Basophil# 0.01 X10^3/uL; Hematocrit 38.8 % (40-54); Hemoglobin 13.3 g/dl (13.0-16.5); Lymphocyte # 0.83 X10^3/ul (4.0); Lymphocyte % 3.3 % (19-41); Mean Corp Hgb Conc 34.3 g/gl (32-36); Mean Corpuscular Hgb 37.2 pg (27.0-32.0); Mean Corpuscular Volume 108.4 fL (80-94); Mean Platelet Vol. 11.3 fl (6.2-12.0); Monocyte# 0.61 X10^3/uL; Monocyte% 2.5 % (0-10); Neutrophil # 23.34 X10^3/uL (2.7-7.7); Neutrophil % 93.9 % (47-70); Platelet Count 112 K/mm3 (150-450); RBC Distribution Width CV 14.8 % (11.6-14.6); Red Blood Count 3.58 M/mm3 (4.6-6.2); White Blood Count 24.9 K/mm3 (4.4-11.0)
[2017-11-17 08:57] LABS: Differential Indicated SCAN CRITERIA MET; POSITIVE COUNT NO; POSITIVE DIFFERENTIAL YES; POSITIVE MORPHOLOGY NO
--- NOTE | 2017-11-17 08:59 | PCA ---
In to receive signature to obtain pt medical records from [facility]. Pt stated he was also seen at [facility] in November 2016. Faxed signed release of medical records to [employer] as well as [facility].
[2017-11-17 09:15] LABS: Platelet Estimate SLT DEC (ADEQ); Platelet Morphology LARGE
[2017-11-17 09:16] LABS: Differential Comment SCANNED
[2017-11-17 09:23] LABS: Anion Gap 13 (5-15); BUN 41 mg/dL (7-18); BUN/Creat Ratio 19.3 RATIO (10-20); Calcium,Total 8.8 mg/dL (8.5-10.1); Chloride 101 mmol/L (98-107); Creatinine, Serum 2.12 mg/dL (0.70-1.30); EST Glomerular Filtration Rate 33 mL/min (>60); Est Glom Filt Rate - Afr Amer 39 mL/min (>60); Estimated Creatinine Clearance 29.75 ml/min; Glucose 129 mg/dL (74-106); Potassium 4.3 mmol/L (3.5-5.1); Sodium Level 133 mmol/L (136-145)
--- NOTE | 2017-11-17 14:06 | CM.UR ---
Met face to face with patient around 10:20am. Patient denies any discharge needs except assistance with oxygen. States that he has a concentrator at home. States he has the regular tanks but those are too big for his to bring in at discharge. States that he has small tanks that he fills however they are currently empty and his doesn't know how to fill them. Vet is requesting tank to go home with. Explained we can check with [employer] to see if we can get him one. No other needs anticipated at this time. Golden Saavedra RN, CCM.
[2017-11-17] MEDS: Pantoprazole Sodium 20 MG Tablet PO (21:54)
[2017-11-17] MEDS: Aspirin 81 MG TAB.CHEW PO (21:54)
[2017-11-18] VITALS (16 sets, daily range): BP systolic 132–170; BP diastolic 66–91; PULSE 72–100; RESP 18–22; TEMP 36.4–37.2; O2SAT 76–94
[2017-11-18] MEDS: Heparin Injection (Vial) 5,000 UNIT/ML VIAL 5000 UNIT SC (05:24)
[2017-11-18] MEDS: 0.9% NaCl Peripheral Flush Adult/Peds IV ×3 (05:24→21:01)
[2017-11-18] MEDS: Ipratropium/Albuterol Sulfate 3 ML AMPUL.NEB INHALATION ×5 (06:58→23:35)
[2017-11-18] MEDS: Metoprolol(XL)Succ 25 MG Tablet 12.5 MG PO (07:51)
[2017-11-18] MEDS: hydrALAZINE 50 MG Tablet PO ×2 (07:52→20:55)
[2017-11-18] MEDS: Allopurinol 100 MG Tablet 200 MG PO (07:52)
[2017-11-18] MEDS: Cyanocobalamin 500 MCG Tablet 1000 MCG PO (07:52)
--- NOTE | 2017-11-18 08:10 | PCM.CONS.GEN ---
Reason for Consult Date of Consultation: 11/18/17 Reason for Consultation: COPD exacerbation History of Present Illness: The patient is a 77-year-old male, with a history as outlined below, who initially presented to the emergency department on November 16 with progressive shortness of breath and hypoxia. The patient reports a history of COPD, for which she has previously been followed by Dr. To Casey in [place]. He is currently on a triple therapy inhaler regimen as an outpatient with [facility]. He endorses a [id number] smoking history, having quit completely in 2008. The patient is currently prescribed 2 L/min of supplemental oxygen at night, but reports that he uses it periodically throughout the day when he is doing strenuous physical activity. He has baseline exertional dyspnea. He does report that he feels as if the recent heat and humidity is what led to his acute decompensation in his breathing quality. 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 He has chronic postnasal drip, along with an intermittently productive cough. The patient does report that he also recently underwent a chest CT within the last several weeks, which was completed at [facility]. A record request has already been sent. On presentation to the emergency department, the patient was noted to be afebrile, tachycardic and hemodynamically stable. He was tachypneic and requiring between 3 and 6 L/min of supplemental oxygen to maintain saturations. Laboratory evaluation revealed elevated white blood cell count to 18,000. Chemistry profile revealed elevated creatinine of 2.28, of unknown chronicity. Serum lactate was within normal limits. Arterial blood gas on 6 L/min revealed a pH of 7.37 with a PO2 of 71 and PCO2 of 29. Plain film chest x-ray revealed hyperinflated lung bermudez with emphysematous changes bilaterally and diffuse interstitial prominence most pronounced at the left hemithorax, which is likely environmental marketing representative of fibrosis or scarring. The patient received aerosol treatments, antibiotics and steroids. He was subsequently admitted to the medical surgical floor for ongoing management. The patient's hospital course has included treatment with Levaquin, IV steroids and serial aerosol treatments. The patient was seen ambulating in the hallway this morning and readily desaturated into the low 80s on 4 L/min. He was visibly dyspneic following attempts at ambulation. Past Medical History Past Medical History (Chronic Problems): Chronic Problems CKD (chronic kidney disease) stage 3, GFR 30-59 ml/min (Chronic) COPD (chronic obstructive pulmonary disease) (Chronic) Chronic respiratory failure with hypoxia (Chronic) Gout (Chronic) History of bladder cancer (Chronic) HTN (hypertension) (Chronic) HLD (hyperlipidemia) (Chronic) GERD (gastroesophageal reflux disease) (Chronic) Allergies No Known Allergies Allergy (Verified 11/16/17 15:59) Home Medications: Ambulatory Orders Medication Instructions Recorded Allopurinol [Zyloprim] 200 mg PO DAILY 11/16/17 Aspirin [Aspirin, Baby] 81 mg PO QHS 11/16/17 Cyanocobalamin [Vitamin B12] 1,000 mcg PO DAILY@0800 11/16/17 Fluticasone/Vilanterol [Breo 1 puff INHALATION DAILY 11/16/17 Ellipta 100-25 Mcg INH] Metoprolol Succinate 12.5 mg PO DAILY 11/16/17 Omeprazole 20 mg PO QHS 11/16/17 Tiotropium [place] [Spiriva] 1 puff INHALATION DAILY 11/16/17 hydrALAZINE [Apresoline] 50 mg PO BID 11/16/17 Surgical History: adenoidectomy, TURP, - - Right carotid endarterectomy Psychiatric History: No pertinent psych hx Lives: Spouse/ Significant Other Smoking Status: Former smoker Alcohol: Occasional - 2-3 times per week Drugs: None - *Family History Maternal History Items: Cancer - Lung Paternal History Items: Heart Disease - Pacemaker Review of Systems Constitutional: Denies: Chills, Fever Eyes: Denies: Blurred vision, Double vision HEENT: Reports: Post Nasal Drip, -. Denies: Head Aches, Sinus Congestion, Sinus Drainage Cardiovascular: Denies: Chest Pain, Palpitations Respiratory: Reports: Cough, Shortness of Breath Gastrointestinal: Denies: Abdominal Pain, Nausea, Vomiting Genitourinary: Denies: Dysuria Musculoskeletal: Denies: Joint Pain, Joint Tenderness Skin: Denies: Rash, Wounds Neurological: Denies: Numbness, Tingling, Focal weakness Psychiatric: Denies: Anxiety, Depression, Homicidal Ideations, Suicidal Ideations Hematologic/ Lymphatic: Denies: Easy Bruising, Easy Bleeding Objective: The patient's most recent lab work, culture data and imaging studies have all been personally reviewed. Sputum culture appears to be normal respiratory carmen. Respiratory viral panel was negative. - Physical Exam General: Alert, Cooperative, - - Visibly dyspneic following attempted ambulation in the hallway HEENT: Atraumatic, PERRLA, Normocephalic Oral: No Gingival or Mucosal Lesions/ Ulcerations Neck: Supple, No Nodes, Trachea Midline Lungs: - - Globally diminished air movement bilaterally without appreciable wheezes, rales or rhonchi. Cardiovascular: Regular rate, Regular Rhythm, Normal S1, Normal S2, No murmurs, No rub noted, No Gallop Abdomen: Bowel Sounds Present, Soft, Non Tender, Non-Distended Extremities: No clubbing, No cyanosis, No edema Skin: No breakdown Musculoskeletal: No Tenderness to Palpation of Joints or Extremities, No Muscle Wasting Lymphatic: No Cervical, Supraclavicular, or Inguinal Adenopathy Neurological: Neuro grossly intact Psych/Mental Status: Alert and oriented to time, place, person, mood and affect Vital Signs Temp Pulse Resp BP Pulse Ox 97.6 F L 72 18 132/78 H 93 11/18/17 07:44 11/18/17 07:52 11/18/17 07:44 11/18/17 07:44 11/18/17 07:46 Oxygen Flow Rate (L/min) 4 Oxygen Delivery Method Nasal Cannula Weight: 154 lb Body Mass Index (BMI) 21.4 Intake and Output for Last 24 Hours 11/16/17 11/17/17 11/18/17 23:59 23:59 23:59 Intake Total 3420 / 3420 250 / 250 Output Total 850 / 850 600 / 600 Balance 2570 / 2570 -350 / -350 Microbiology Past 72 Hours 11/16/17 20:00 Gram Stain - Final Sputum, Expectorated/Coughed Respiratory Culture - Preliminary Appears to be normal respiratory carmen. Further studies to follow. 11/16/17 19:45 Respiratory Panel (PCR) - Final Mucosa - Nasopharyngeal Laboratory Tests Past 24 Hrs 11/17/17 11/17/17 08:03 08:03 WBC 24.9 H RBC 3.58 L Hgb 13.3 Hct 38.8 L MCV 108.4 H MCH 37.2 H MCHC 34.3 RDW 14.8 H RDW Differential 59.0 H Plt Count 112 L MPV 11.3 Immature Gran % (Auto) 0.300 Neut % (Auto) 93.9 H Lymph % (Auto) 3.3 L [place] % (Auto) 2.5 Eos % (Auto) 0.0 Baso % (Auto) 0.0 Absolute Neuts (auto) 23.3 H Absolute Lymphs (auto) 0.83 Total Counted Not Reportable Differential Comment SCANNED Platelet Estimate SLT DEC Plt Morphology Comment LARGE Sodium 133 L Potassium 4.3 Chloride 101 Carbon Dioxide 19.0 L Anion Gap 13 BUN 41 H Creatinine 2.12 H Estim Creat Clear Calc 29.75 Est GFR (MDRD) Af Amer 39 L Est GFR (MDRD) Non-Af 33 L BUN/Creatinine Ratio 19.3 Glucose 129 H Calcium 8.8 Clinical Impression(s) from Imaging Studies Chest X-Ray 11/16/17 16:07 IMPRESSION: Bullous COPD with fibrosis and scarring. On the left cannot exclude inflammatory infiltrates. Electronically Signed: Jay Jay Gabriel MD at 17:29 EDT , Service support , Assessment/Plan RECOMMENDATIONS: 1. Continue scheduled bronchodilators and steroids. 2. Continue antibiotics, pending infectious workup. 3. Wean supplemental oxygen to maintain saturations at or above 88%. Encourage incentive spirometer use. 4. Plan to repeat walking oximetry study tomorrow. 5. Obtain report from recent CT chest completed through [facility] 6. Continue Lovenox for DVT prophylaxis 7. Patient is wishing to establish care the pulmonary medicine of [place]. Please ensure that he has a follow-up visit scheduled within 2 weeks of his discharge from the hospital. IMPRESSIONS: 1. Acute on chronic hypoxemic respiratory failure, likely secondary to COPD with exacerbation Although the patient may have infectious infiltrates on plain film chest imaging, the findings appear to be more suggestive of interstitial fibrosis. In addition, the patient reports only having utilized supplemental oxygen on an as-needed basis in his home environment previously. It is highly likely that he has been progressive hypoxic for prolonged period of time. He is wishing to transfer his pulmonary care here to [facility]. He also reports having had a CT chest completed just recently through [facility]. The records for that imaging study are currently pending. Agree with continuing empiric antibiotics for now, along with IV steroids and scheduled bronchodilators. The patient is on a triple therapy inhaler regimen as an outpatient, which would likely suggest advanced stage COPD. Continue to wean supplemental oxygen to maintain saturations at or above 88%. Repeat walking oximetry study tomorrow. Plan for the patient to follow-up in the pulmonary medicine clinic within 2 weeks of his discharge from the hospital. 2. Allergic rhinitis/postnasal drip Continue Flonase as ordered. 3. History of tobacco abuse, in remission/history of bladder cancer/gout/hyperlipidemia/hypertension/chronic kidney disease Complicates care, management, recovery and prognosis. Continue home medications as indicated. Continue work with physical therapy. This note was generated with [employer] dictation software. It may contain incorrect words, spelling, and punctuation that were not noted in checking the note before signing. Code Visit Inpatient E&M: 07625 Init Hosp L3
--- NOTE | 2017-11-18 08:14 | CON.PCM_ITS ---
Reason for Consult Date of Consultation: 11/18/17 Reason for Consultation: COPD exacerbation History of Present Illness: The patient is a 77-year-old male, with a history as outlined below, who initially presented to the emergency department on November 16 with progressive shortness of breath and hypoxia. The patient reports a history of COPD, for which she has previously been followed by Dr. To Casey in [place]. He is currently on a triple therapy inhaler regimen as an outpatient with [facility]. He endorses a [id number] smoking history, having quit completely in 2008. The patient is currently prescribed 2 L/min of supplemental oxygen at night, but reports that he uses it periodically throughout the day when he is doing strenuous physical activity. He has baseline exertional dyspnea. He does report that he feels as if the recent heat and humidity is what led to his acute decompensation in his breathing quality. 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 He has chronic postnasal drip, along with an intermittently productive cough. The patient does report that he also recently underwent a chest CT within the last several weeks, which was completed at [facility]. A record request has already been sent. On presentation to the emergency department, the patient was noted to be afebrile, tachycardic and hemodynamically stable. He was tachypneic and requiring between 3 and 6 L/min of supplemental oxygen to maintain saturations. Laboratory evaluation revealed elevated white blood cell count to 18,000. Chemistry profile revealed elevated creatinine of 2.28, of unknown chronicity. Serum lactate was within normal limits. Arterial blood gas on 6 L/min revealed a pH of 7.37 with a PO2 of 71 and PCO2 of 29. Plain film chest x-ray revealed hyperinflated lung bermudez with emphysematous changes bilaterally and diffuse interstitial prominence most pronounced at the left hemithorax, which is likely environmental marketing representative of fibrosis or scarring. The patient received aerosol treatments , antibiotics and steroids. He was subsequently admitted to the medical surgical floor for ongoing management. The patient's hospital course has included treatment with Levaquin, IV steroids and serial aerosol treatments. The patient was seen ambulating in the hallway this morning and readily desaturated into the low 80s on 4 L/min. He was visibly dyspneic following attempts at ambulation. Past Medical History Past Medical History (Chronic Problems): Chronic Problems CKD (chronic kidney disease) stage 3, GFR 30-59 ml/min (Chronic) COPD (chronic obstructive pulmonary disease) (Chronic) Chronic respiratory failure with hypoxia (Chronic) Gout (Chronic) History of bladder cancer (Chronic) HTN (hypertension) (Chronic) HLD (hyperlipidemia) (Chronic) GERD (gastroesophageal reflux disease) (Chronic) Allergies No Known Allergies Allergy (Verified 11/16/17 15:59) Home Medications: Ambulatory Orders Medication Instructions Recorded Allopurinol [Zyloprim] 200 mg PO DAILY 11/16/17 Aspirin [Aspirin, Baby] 81 mg PO QHS 11/16/17 Cyanocobalamin [Vitamin B12] 1,000 mcg PO DAILY@0800 11/16/17 Fluticasone/Vilanterol [Breo 1 puff INHALATION DAILY 11/16/17 Ellipta 100-25 Mcg INH] Metoprolol Succinate 12.5 mg PO DAILY 11/16/17 Omeprazole 20 mg PO QHS 11/16/17 Tiotropium [place] [Spiriva] 1 puff INHALATION DAILY 11/16/17 hydrALAZINE [Apresoline] 50 mg PO BID 11/16/17 Surgical History: adenoidectomy, TURP, - - Right carotid endarterectomy Psychiatric History: No pertinent psych hx Lives: Spouse/ Significant Other Smoking Status: Former smoker Alcohol: Occasional - 2-3 times per week Drugs: None - *Family History Maternal History Items: Cancer - Lung Paternal History Items: Heart Disease - Pacemaker Review of Systems Constitutional: Denies: Chills, Fever Eyes: Denies: Blurred vision, Double vision HEENT: Reports: Post Nasal Drip, -. Denies: Head Aches, Sinus Congestion, Sinus Drainage Cardiovascular: Denies: Chest Pain, Palpitations Respiratory: Reports: Cough, Shortness of Breath Gastrointestinal: Denies: Abdominal Pain, Nausea, Vomiting Genitourinary: Denies: Dysuria Musculoskeletal: Denies: Joint Pain, Joint Tenderness Skin: Denies: Rash, Wounds Neurological: Denies: Numbness, Tingling, Focal weakness Psychiatric: Denies: Anxiety, Depression, Homicidal Ideations, Suicidal Ideations Hematologic/ Lymphatic: Denies: Easy Bruising, Easy Bleeding Objective: The patient's most recent lab work, culture data and imaging studies have all been personally reviewed. Sputum culture appears to be normal respiratory carmen. Respiratory viral panel was negative. - Physical Exam General: Alert, Cooperative, - - Visibly dyspneic following attempted ambulation in the hallway HEENT: Atraumatic, PERRLA, Normocephalic Oral: No Gingival or Mucosal Lesions/ Ulcerations Neck: Supple, No Nodes, Trachea Midline Lungs: - - Globally diminished air movement bilaterally without appreciable wheezes, rales or rhonchi. Cardiovascular: Regular rate, Regular Rhythm, Normal S1, Normal S2, No murmurs, No rub noted, No Gallop Abdomen: Bowel Sounds Present, Soft, Non Tender, Non-Distended Extremities: No clubbing, No cyanosis, No edema Skin: No breakdown Musculoskeletal: No Tenderness to Palpation of Joints or Extremities, No Muscle Wasting Lymphatic: No Cervical, Supraclavicular, or Inguinal Adenopathy Neurological: Neuro grossly intact Psych/Mental Status: Alert and oriented to time, place, person, mood and affect Vital Signs Temp Pulse Resp BP Pulse Ox 97.6 F L 72 18 132/78 H 93 11/18/17 07:44 11/18/17 07:52 11/18/17 07:44 11/18/17 07:44 11/18/17 07:46 Oxygen Flow Rate (L/min) 4 Oxygen Delivery Method Nasal Cannula Weight: 154 lb Body Mass Index (BMI) 21.4 Intake and Output for Last 24 Hours 11/16/17 11/17/17 11/18/17 23:59 23:59 23:59 Intake Total 3420 / 3420 250 / 250 Output Total 850 / 850 600 / 600 Balance 2570 / 2570 -350 / -350 Microbiology Past 72 Hours 11/16/17 20:00 Gram Stain - Final Sputum, Expectorated/Coughed Respiratory Culture - Preliminary Appears to be normal respiratory carmen. Further studies to follow. 11/16/17 19:45 Respiratory Panel (PCR) - Final Mucosa - Nasopharyngeal Laboratory Tests Past 24 Hrs 11/17/17 11/17/17 08:03 08:03 WBC 24.9 H RBC 3.58 L Hgb 13.3 Hct 38.8 L MCV 108.4 H MCH 37.2 H MCHC 34.3 RDW 14.8 H RDW Differential 59.0 H Plt Count 112 L MPV 11.3 Immature Gran % (Auto) 0.300 Neut % (Auto) 93.9 H Lymph % (Auto) 3.3 L [place] % (Auto) 2.5 Eos % (Auto) 0.0 Baso % (Auto) 0.0 Absolute Neuts (auto) 23.3 H Absolute Lymphs (auto) 0.83 Total Counted Not Reportable Differential Comment SCANNED Platelet Estimate SLT DEC Plt Morphology Comment LARGE Sodium 133 L Potassium 4.3 Chloride 101 Carbon Dioxide 19.0 L Anion Gap 13 BUN 41 H Creatinine 2.12 H Estim Creat Clear Calc 29.75 Est GFR (MDRD) Af Amer 39 L Est GFR (MDRD) Non-Af 33 L BUN/Creatinine Ratio 19.3 Glucose 129 H Calcium 8.8 Clinical Impression(s) from Imaging Studies Chest X-Ray 11/16/17 16:07 IMPRESSION: Bullous COPD with fibrosis and scarring. On the left cannot exclude inflammatory infiltrates. Electronically Signed: Jay Jay Gabriel MD at 17:29 EDT , Service support , Assessment/Plan RECOMMENDATIONS: 1. Continue scheduled bronchodilators and steroids. 2. Continue antibiotics, pending infectious workup. 3. Wean supplemental oxygen to maintain saturations at or above 88%. Encourage incentive spirometer use. 4. Plan to repeat walking oximetry study tomorrow. 5. Obtain report from recent CT chest completed [facility] 6. Continue Lovenox for DVT prophylaxis 7. Patient is wishing to establish care the pulmonary medicine of [place]. Please ensure that he has a follow-up visit scheduled within 2 weeks of his discharge from the hospital. IMPRESSIONS: 1. Acute on chronic hypoxemic respiratory failure, likely secondary to COPD with exacerbation Although the patient may have infectious infiltrates on plain film chest imaging , the findings appear to be more suggestive of interstitial fibrosis. In addition, the patient reports only having utilized supplemental oxygen on an as- needed basis in his home environment previously. It is highly likely that he has been progressive hypoxic for prolonged period of time. He is wishing to transfer his pulmonary care here to [facility]. He also reports having had a CT chest completed just recently through [facility]. The records for that imaging study are currently pending. Agree with continuing empiric antibiotics for now, along with IV steroids and scheduled bronchodilators. The patient is on a triple therapy inhaler regimen as an outpatient, which would likely suggest advanced stage COPD. Continue to wean supplemental oxygen to maintain saturations at or above 88%. Repeat walking oximetry study tomorrow. Plan for the patient to follow-up in the pulmonary medicine clinic within 2 weeks of his discharge from the hospital. 2. Allergic rhinitis/postnasal drip Continue Flonase as ordered. 3. History of tobacco abuse, in remission/history of bladder cancer/gout/ hyperlipidemia/hypertension/chronic kidney disease Complicates care, management, recovery and prognosis. Continue home medications as indicated. Continue work with physical therapy. This note was generated with [employer] dictation software. It may contain incorrect words, spelling, and punctuation that were not noted in checking the note before signing. Code Visit Inpatient E&M: 08659 Init Hosp L3
--- NOTE | 2017-11-18 08:40 | PCM.PN.HOSP ---
Subjective: Patient seen still remains relatively dyspneic at rest. Patient became significantly hypoxic with ambulation dropping to 77 did discuss with patient and Dr. Velásquez about patient being discharged home on continuous O2 when stable for discharge Objective: GENERAL: Dyspneic at rest HEENT: Clear conjunctiva, moist oral mucosa NECK; supple, normal thyroid, no distended JVD. CHEST: Markedly diminished to auscultation with bilateral wheezes HEART: Regular S1 S2, no audible murmurs ABDOMEN: soft, non-tender, normoactive bowel sounds, RECTAL: deferred EXTREMITIES: No edema, no clubbing, cyanotic SCREEN WRITER: Awake; no lateralizing signs. SKIN: No Rash Vitals/I&O's: Vital Signs Temp Pulse Resp BP Pulse Ox 97.6 F L 72 18 132/78 H 93 11/18/17 07:44 11/18/17 07:52 11/18/17 07:44 11/18/17 07:44 11/18/17 07:46 Oxygen Flow Rate (L/min) 4 Oxygen Delivery Method Nasal Cannula Weight: 69.853 kg Body Mass Index (BMI) 21.4 Intake and Output for Last 24 Hours 11/16/17 11/17/17 11/18/17 23:59 23:59 23:59 Intake Total 3420 / 3420 250 / 250 Output Total 850 / 850 600 / 600 Balance 2570 / 2570 -350 / -350 Microbiology Past 72 Hours 11/16/17 20:00 Sputum, Expectorated/Coughed Gram Stain - Final 11/16/17 20:00 Sputum, Expectorated/Coughed Respiratory Culture - Preliminary Appears to be normal respiratory carmen. Further studies to follow. 11/16/17 19:45 Mucosa - Nasopharyngeal Respiratory Panel (PCR) - Final Laboratory Results 11/17/17 08:03: WBC 24.9 H, RBC 3.58 L, Hgb 13.3, Hct 38.8 L, MCV 108.4 H, MCH 37.2 H, MCHC 34.3, RDW 14.8 H, RDW Differential 59.0 H, Plt Count 112 L, MPV 11.3, Immature Gran % (Auto) 0.300, Neut % (Auto) 93.9 H, Lymph % (Auto) 3.3 L, [place] % (Auto) 2.5, Eos % (Auto) 0.0, Baso % (Auto) 0.0, Absolute Neuts (auto) 23.3 H, Absolute Lymphs (auto) 0.83, Total Counted Not Reportable, Differential Comment SCANNED, Platelet Estimate SLT DEC, Plt Morphology Comment LARGE 11/17/17 08:03: Sodium 133 L, Potassium 4.3, Chloride 101, Carbon Dioxide 19.0 L, Anion Gap 13, BUN 41 H, Creatinine 2.12 H, Estim Creat Clear Calc 29.75, Est GFR (MDRD) Af Amer 39 L, Est GFR (MDRD) Non-Af 33 L, BUN/Creatinine Ratio 19.3, Glucose 129 H, Calcium 8.8 Current Medications Acetaminophen (Tylenol) 650 mg PO Q6H PRN PRN PRN Reason: Mild Pain (scale 0-3)/T>100.7 Albuterol Sulfate (Ventolin Aerosols) 2.5 mg INHALATION Q2H PRN PRN PRN Reason: SHORTNESS OF BREATH Albuterol/Ipratropium (Duoneb) 3 ml INHALATION Q4H.RT [facility] Last Admin: 11/18/17 06:58 Dose: 3 ml Allopurinol (Zyloprim) 200 mg PO DAILY [facility] Last Admin: 11/18/17 07:52 Dose: 200 mg Aspirin (Aspirin, Baby) 81 mg PO QHS [facility] Last Admin: 11/17/17 21:54 Dose: 81 mg Cyanocobalamin (Vitamin B12) 1,000 mcg PO DAILY@0800 [facility] Last Admin: 11/18/17 07:52 Dose: 1,000 mcg Fluticasone Propionate (Flonase Nasal [place]) 1 spray NASAL BID PRN PRN PRN Reason: ALLERGIES Last Admin: 11/17/17 21:55 Dose: 1 spray Heparin Sodium (Porcine) (Heparin Na) 5,000 unit SC Q8 [facility] Last Admin: 11/18/17 05:24 Dose: 5,000 units Hydralazine HCl (Apresoline) 50 mg PO BID [facility] Last Admin: 11/18/17 07:52 Dose: 50 mg Levofloxacin (Levaquin Iv) 750 mg in 150 mls @ 100 mls/hr IV Q48H [facility] Last Admin: 11/16/17 22:54 Dose: 100 mls/hr Magnesium Hydroxide (Milk Of Magnesia) 30 ml PO DAILY PRN PRN PRN Reason: Constipation Methylprednisolone (Solu-Medrol) 40 mg IV Q8 [facility] Last Admin: 11/18/17 05:24 Dose: 40 mg Metoprolol Succinate (Toprol Xl (Beta Sergio)) 12.5 mg PO DAILY [facility] Last Admin: 11/18/17 07:51 Dose: 12.5 mg Ondansetron HCl (Zofran) 4 mg IV Q8H PRN PRN PRN Reason: Nausea Pantoprazole Sodium (Protonix) 20 mg PO QHS [facility] Last Admin: 11/17/17 21:54 Dose: 20 mg Sodium Chloride () 5 - 30 ml IV UD PRN PRN Reason: SALINE FLUSH Last Admin: 11/18/17 05:24 Dose: 20 ml Medical Necessity - Tobacco Use Smoking Status: Former smoker Assessment/Plan Patient is a 77-year-old with past medical history notable for chronic hypoxic respiratory failure secondary to COPD who presented with progressive shortness of breath again imaging studies 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 On the left cannot exclude inflammatory infiltrates; admitted to regular nursing floor where patient has since been managed. 1. Acute on chronic hypoxic respiratory failure secondary to COPD exacerbation 2. COPD exacerbation possibly preceded by suspected community-acquired pneumonia admitted to regular nursing floor managed with systemic steroid, bronchodilator therapy as well as antibiotics with Levaquin 3. Chronic hypoxic respiratory failure secondary to COPD patient is on baseline home O2 4. Chronic kidney disease stage III-10 kidney function at baseline 5. Hypertension-blood pressure controlled, home medications continued with dose adjustment as needed 6. Dyslipidemia- 7. Hiatal hernia with reflux symptoms patient is on PPI 8. Gout patient is on allopurinol did continue home dose 9. History of bladder CA currently in remission 10. [id number] history of tobacco use patient did quit in 2008 11. DVT prophylaxis SC heparin 12. Postnasal drip patient is on nasocort Active Medications Acetaminophen (Tylenol) 650 mg PO Q6H PRN PRN PRN Reason: Mild Pain (scale 0-3)/T>100.7 Albuterol Sulfate (Ventolin Aerosols) 2.5 mg INHALATION Q2H PRN PRN PRN Reason: SHORTNESS OF BREATH Albuterol/Ipratropium (Duoneb) 3 ml INHALATION Q4H.RT [facility] Last Admin: 11/17/17 07:17 Dose: 3 ml Allopurinol (Zyloprim) 200 mg PO DAILY [facility] Aspirin (Aspirin, Baby) 81 mg PO QHS [facility] Cyanocobalamin (Vitamin B12) 1,000 mcg PO DAILY@0800 [facility] Fluticasone Propionate (Flonase Nasal [place]) 1 spray NASAL DAILY PRN PRN Reason: ALLERGIES Last Admin: 11/17/17 05:58 Dose: 1 spray Heparin Sodium (Porcine) (Heparin Na) 5,000 unit SC Q8 [facility] Last Admin: 11/17/17 06:03 Dose: 5,000 units Hydralazine HCl (Apresoline) 50 mg PO BID [facility] Levofloxacin (Levaquin Iv) 750 mg in 150 mls @ 100 mls/hr IV Q48H [facility] Last Admin: 11/16/17 22:54 Dose: 100 mls/hr Magnesium Hydroxide (Milk Of Magnesia) 30 ml PO DAILY PRN PRN PRN Reason: Constipation Methylprednisolone (Solu-Medrol) 40 mg IV Q8 [facility] Last Admin: 11/17/17 06:02 Dose: 40 mg Metoprolol Succinate (Toprol Xl (Beta Sergio)) 12.5 mg PO DAILY [facility] Ondansetron HCl (Zofran) 4 mg IV Q8H PRN PRN PRN Reason: Nausea Pantoprazole Sodium (Protonix) 20 mg PO QHS [facility] Sodium Chloride () 5 - 30 ml IV UD PRN PRN Reason: SALINE FLUSH Last Admin: 11/17/17 06:00 Dose: 10 ml Clinical Impression(s) from Imaging Studies Chest X-Ray 11/16/17 16:07 IMPRESSION: Bullous COPD with fibrosis and scarring. On the left cannot exclude inflammatory infiltrates. Electronically Signed: Jay Jay Gabriel MD at 17:29 EDT , Service support , Code Visit Inpatient E&M: 36847 Subs Hosp L3
--- NOTE | 2017-11-18 08:45 | PN_ITS ---
Subjective: Patient seen still remains relatively dyspneic at rest. Patient became significantly hypoxic with ambulation dropping to 77 did discuss with patient and Dr. Velásquez about patient being discharged home on continuous O2 when stable for discharge Objective: GENERAL: Dyspneic at rest HEENT: Clear conjunctiva, moist oral mucosa NECK; supple, normal thyroid, no distended JVD. CHEST: Markedly diminished to auscultation with bilateral wheezes HEART: Regular S1 S2, no audible murmurs ABDOMEN: soft, non-tender, normoactive bowel sounds, RECTAL: deferred EXTREMITIES: No edema, no clubbing, cyanotic CHECK SCALER: Awake; no lateralizing signs. SKIN: No Rash Vitals/I&O's: Vital Signs Temp Pulse Resp BP Pulse Ox 97.6 F L 72 18 132/78 H 93 11/18/17 07:44 11/18/17 07:52 11/18/17 07:44 11/18/17 07:44 11/18/17 07:46 Oxygen Flow Rate (L/min) 4 Oxygen Delivery Method Nasal Cannula Weight: 69.853 kg Body Mass Index (BMI) 21.4 Intake and Output for Last 24 Hours 11/16/17 11/17/17 11/18/17 23:59 23:59 23:59 Intake Total 3420 / 3420 250 / 250 Output Total 850 / 850 600 / 600 Balance 2570 / 2570 -350 / -350 Microbiology Past 72 Hours 11/16/17 20:00 Sputum, Expectorated/Coughed Gram Stain - Final 11/16/17 20:00 Sputum, Expectorated/Coughed Respiratory Culture - Preliminary Appears to be normal respiratory carmen. Further studies to follow. 11/16/17 19:45 Mucosa - Nasopharyngeal Respiratory Panel (PCR) - Final Laboratory Results 11/17/17 08:03: WBC 24.9 H, RBC 3.58 L, Hgb 13.3, Hct 38.8 L, MCV 108.4 H, MCH 37.2 H, MCHC 34.3, RDW 14.8 H, RDW Differential 59.0 H, Plt Count 112 L, MPV 11.3, Immature Gran % (Auto) 0.300, Neut % (Auto) 93.9 H, Lymph % (Auto) 3.3 L, [place] % (Auto) 2.5, Eos % (Auto) 0.0, Baso % (Auto) 0.0, Absolute Neuts (auto) 23.3 H, Absolute Lymphs (auto) 0.83, Total Counted Not Reportable, Differential Comment SCANNED, Platelet Estimate SLT DEC, Plt Morphology Comment LARGE 11/17/17 08:03: Sodium 133 L, Potassium 4.3, Chloride 101, Carbon Dioxide 19.0 L , Anion Gap 13, BUN 41 H, Creatinine 2.12 H, Estim Creat Clear Calc 29.75, Est GFR (MDRD) Af Amer 39 L, Est GFR (MDRD) Non-Af 33 L, BUN/Creatinine Ratio 19.3, Glucose 129 H, Calcium 8.8 Current Medications Acetaminophen (Tylenol) 650 mg PO Q6H PRN PRN PRN Reason: Mild Pain (scale 0-3)/T>100.7 Albuterol Sulfate (Ventolin Aerosols) 2.5 mg INHALATION Q2H PRN PRN PRN Reason: SHORTNESS OF BREATH Albuterol/Ipratropium (Duoneb) 3 ml INHALATION Q4H.RT [facility] Last Admin: 11/18/17 06:58 Dose: 3 ml Allopurinol (Zyloprim) 200 mg PO DAILY [facility] Last Admin: 11/18/17 07:52 Dose: 200 mg Aspirin (Aspirin, Baby) 81 mg PO QHS [facility] Last Admin: 11/17/17 21:54 Dose: 81 mg Cyanocobalamin (Vitamin B12) 1,000 mcg PO DAILY@0800 [facility] Last Admin: 11/18/17 07:52 Dose: 1,000 mcg Fluticasone Propionate (Flonase Nasal [place]) 1 spray NASAL BID PRN PRN PRN Reason: ALLERGIES Last Admin: 11/17/17 21:55 Dose: 1 spray Heparin Sodium (Porcine) (Heparin Na) 5,000 unit SC Q8 [facility] Last Admin: 11/18/17 05:24 Dose: 5,000 units Hydralazine HCl (Apresoline) 50 mg PO BID [facility] Last Admin: 11/18/17 07:52 Dose: 50 mg Levofloxacin (Levaquin Iv) 750 mg in 150 mls @ 100 mls/hr IV Q48H [facility] Last Admin: 11/16/17 22:54 Dose: 100 mls/hr Magnesium Hydroxide (Milk Of Magnesia) 30 ml PO DAILY PRN PRN PRN Reason: Constipation Methylprednisolone (Solu-Medrol) 40 mg IV Q8 [facility] Last Admin: 11/18/17 05:24 Dose: 40 mg Metoprolol Succinate (Toprol Xl (Beta Sergio)) 12.5 mg PO DAILY [facility] Last Admin: 11/18/17 07:51 Dose: 12.5 mg Ondansetron HCl (Zofran) 4 mg IV Q8H PRN PRN PRN Reason: Nausea Pantoprazole Sodium (Protonix) 20 mg PO QHS [facility] Last Admin: 11/17/17 21:54 Dose: 20 mg Sodium Chloride () 5 - 30 ml IV UD PRN PRN Reason: SALINE FLUSH Last Admin: 11/18/17 05:24 Dose: 20 ml Medical Necessity - Tobacco Use Smoking Status: Former smoker Assessment/Plan Patient is a 77-year-old with past medical history notable for chronic hypoxic respiratory failure secondary to COPD who presented with progressive shortness of breath again imaging studies 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 On the left cannot exclude inflammatory infiltrates; admitted to regular nursing floor where patient has since been managed. 1. Acute on chronic hypoxic respiratory failure secondary to COPD exacerbation 2. COPD exacerbation possibly preceded by suspected community-acquired pneumonia admitted to regular nursing floor managed with systemic steroid, bronchodilator therapy as well as antibiotics with Levaquin 3. Chronic hypoxic respiratory failure secondary to COPD patient is on baseline home O2 4. Chronic kidney disease stage III-10 kidney function at baseline 5. Hypertension-blood pressure controlled, home medications continued with dose adjustment as needed 6. Dyslipidemia- 7. Hiatal hernia with reflux symptoms patient is on PPI 8. Gout patient is on allopurinol did continue home dose 9. History of bladder CA currently in remission 10. [id number] history of tobacco use patient did quit in 2008 11. DVT prophylaxis SC heparin 12. Postnasal drip patient is on nasocort Active Medications Acetaminophen (Tylenol) 650 mg PO Q6H PRN PRN PRN Reason: Mild Pain (scale 0-3)/T>100.7 Albuterol Sulfate (Ventolin Aerosols) 2.5 mg INHALATION Q2H PRN PRN PRN Reason: SHORTNESS OF BREATH Albuterol/Ipratropium (Duoneb) 3 ml INHALATION Q4H.RT [facility] Last Admin: 11/17/17 07:17 Dose: 3 ml Allopurinol (Zyloprim) 200 mg PO DAILY [facility] Aspirin (Aspirin, Baby) 81 mg PO QHS [facility] Cyanocobalamin (Vitamin B12) 1,000 mcg PO DAILY@0800 [facility] Fluticasone Propionate (Flonase Nasal [place]) 1 spray NASAL DAILY PRN PRN Reason: ALLERGIES Last Admin: 11/17/17 05:58 Dose: 1 spray Heparin Sodium (Porcine) (Heparin Na) 5,000 unit SC Q8 [facility] Last Admin: 11/17/17 06:03 Dose: 5,000 units Hydralazine HCl (Apresoline) 50 mg PO BID [facility] Levofloxacin (Levaquin Iv) 750 mg in 150 mls @ 100 mls/hr IV Q48H [facility] Last Admin: 11/16/17 22:54 Dose: 100 mls/hr Magnesium Hydroxide (Milk Of Magnesia) 30 ml PO DAILY PRN PRN PRN Reason: Constipation Methylprednisolone (Solu-Medrol) 40 mg IV Q8 [facility] Last Admin: 11/17/17 06:02 Dose: 40 mg Metoprolol Succinate (Toprol Xl (Beta Sergio)) 12.5 mg PO DAILY [facility] Ondansetron HCl (Zofran) 4 mg IV Q8H PRN PRN PRN Reason: Nausea Pantoprazole Sodium (Protonix) 20 mg PO QHS [facility] Sodium Chloride () 5 - 30 ml IV UD PRN PRN Reason: SALINE FLUSH Last Admin: 11/17/17 06:00 Dose: 10 ml Clinical Impression(s) from Imaging Studies Chest X-Ray 11/16/17 16:07 IMPRESSION: Bullous COPD with fibrosis and scarring. On the left cannot exclude inflammatory infiltrates. Electronically Signed: Jay Jay Gabriel MD at 17:29 EDT , Service support , Code Visit Inpatient E&M: [id number] Subs Hosp L3
[2017-11-18] MEDS: Fluticasone 0.05% 1 SPRAY NASAL.SRY NASAL (20:54)
[2017-11-18] MEDS: Aspirin 81 MG TAB.CHEW PO (20:55)
[2017-11-18] MEDS: Pantoprazole Sodium 20 MG Tablet PO (20:56)
[2017-11-18] MEDS: levoFLOXacin IV 750 MG/150 ML BAG 100 MG IV (21:02)
[2017-11-19] VITALS (16 sets, daily range): BP systolic 143–158; BP diastolic 73–98; PULSE 92–109; RESP 16–30; TEMP 36.6–37; O2SAT 92–94
[2017-11-19] MEDS: Fluticasone 0.05% 1 SPRAY NASAL.SRY NASAL ×2 (04:02→21:03)
[2017-11-19] MEDS: Enoxaparin 30 MG/0.3 ML Syringe SC (05:57)
[2017-11-19] MEDS: 0.9% NaCl Peripheral Flush Adult/Peds IV (05:58)
[2017-11-19] MEDS: Ipratropium/Albuterol Sulfate 3 ML AMPUL.NEB INHALATION ×5 (07:00→23:15)
[2017-11-19 07:03] LABS: Absolute Lymphocyte Count 0.55 X10^3/ul (0.83-4.51); Absolute Neutrophil Count 13.6 X10^3/uL (2.0-7.7); Basophil# 0.01 X10^3/uL; Basophil% 0.1 % (0-1); Differential Indicated SCAN CRITERIA MET; Hematocrit 38.6 % (40-54); Hemoglobin 13.8 g/dl (13.0-16.5); Lymphocyte # 0.55 X10^3/ul (4.0); Lymphocyte % 3.6 % (19-41); Mean Corp Hgb Conc 35.8 g/gl (32-36); Mean Corpuscular Hgb 38.2 pg (27.0-32.0); Mean Corpuscular Volume 106.9 fL (80-94); Mean Platelet Vol. 11.7 fl (6.2-12.0); Monocyte# 0.77 X10^3/uL; Monocyte% 5.1 % (0-10); Neutrophil # 13.55 X10^3/uL (2.7-7.7); Neutrophil % 89.6 % (47-70); POSITIVE COUNT NO; POSITIVE DIFFERENTIAL YES; POSITIVE MORPHOLOGY NO; Platelet Count 126 K/mm3 (150-450); RBC Distribution Width CV 14.2 % (11.6-14.6); RBC Distribution Width SD 54.4 fl (35.1-43.9); Red Blood Count 3.61 M/mm3 (4.6-6.2); White Blood Count 15.1 K/mm3 (4.4-11.0)
[2017-11-19 07:04] LABS: Anion Gap 10 (5-15); BUN 46 mg/dL (7-18); BUN/Creat Ratio 21.3 RATIO (10-20); Chloride 107 mmol/L (98-107); Creatinine, Serum 2.16 mg/dL (0.70-1.30); EST Glomerular Filtration Rate 32 mL/min (>60); Est Glom Filt Rate - Afr Amer 39 mL/min (>60); Glucose 141 mg/dL (74-106); Potassium 4.6 mmol/L (3.5-5.1); Sodium Level 139 mmol/L (136-145)
[2017-11-19 07:25] LABS: Differential Comment SCANNED
--- NOTE | 2017-11-19 08:42 | PCM.PROGNOTE ---
Subjective: The patient was seen and examined. Reports less shortness of breath this morning, is ambulating in the room but is still desaturating. Complains of productive cough of white to yellow sputum, this is also improved. Currently maintaining appropriate saturations on 5 L of oxygen supplementation. His baseline requirements are 2 L at night and periodically as needed through the day. Objective: Recent lab and culture data reviewed. Sputum culture showing 1+ pseudomonas aeruginosa. Respiratory viral panel negative. Chest x-ray 11/16 showed hyperexpansion of the lungs and interstitial density throughout the left lung, likely fibrosis versus infiltrate. Bullous disease and areas of scarring in both lungs. CTA of the chest dated 12/06/16 from [facility] demonstrated no PE, chronic interstitial prominence with superimposed basilar atelectasis, and a potential right lung nodule in the upper lobe. - Physical Exam General: Alert, Oriented x3, Cooperative, - - Mild conversational dyspnea HEENT: Atraumatic, Normocephalic Oral: Moist Mucosa, No Gingival or Mucosal Lesions/ Ulcerations Neck: Supple, No Nodes, Trachea Midline Lungs: No rhonchi, No wheeze, No rales, Diminished, Tachypneic - With activity, - - Symmetric expansion, no dullness to percussion Cardiovascular: Normal S1, Normal S2, No murmurs, Irregular Rate, No rub noted, No Gallop Abdomen: Bowel Sounds Present, Soft, Non Tender, Non-Distended Extremities: No clubbing, No cyanosis, No edema Skin: No rashes, No breakdown Musculoskeletal: No Tenderness to Palpation of Joints or Extremities Lymphatic: No Cervical, Supraclavicular, or Inguinal Adenopathy Neurological: Cranial nerves II-XII grossly intact, Neuro grossly intact, Motor Exam 5/5 strength throughout Psych/Mental Status: Alert and oriented to time, place, person, mood and affect Vital Signs Temp Pulse Resp BP Pulse Ox 98.2 F 99 22 H 151/78 H 93 11/19/17 04:06 11/19/17 04:06 11/19/17 04:23 11/19/17 04:06 11/19/17 04:06 Oxygen Flow Rate (L/min) 5 Oxygen Delivery Method Nasal Cannula Weight: 154 lb Body Mass Index (BMI) 21.4 Intake and Output for Last 24 Hours 11/17/17 11/18/17 11/19/17 23:59 23:59 23:59 Intake Total 3420 / 3420 1250 / 1250 821 / 821 Output Total 850 / 850 1300 / 1300 1725 / 1725 Balance 2570 / 2570 -50 / -50 -904 / -904 Microbiology Past 72 Hours 11/16/17 20:00 Gram Stain - Final Sputum, Expectorated/Coughed Respiratory Culture - Final Pseudomonas aeroginosa 11/16/17 19:45 Respiratory Panel (PCR) - Final Mucosa - Nasopharyngeal Laboratory Tests Past 24 Hrs 11/19/17 11/19/17 06:28 06:28 WBC 15.1 H RBC 3.61 L Hgb 13.8 Hct 38.6 L MCV 106.9 H MCH 38.2 H MCHC 35.8 RDW 14.2 RDW Differential 54.4 H Plt Count 126 L MPV 11.7 Immature Gran % (Auto) 1.600 H Neut % (Auto) 89.6 H Lymph % (Auto) 3.6 L [place] % (Auto) 5.1 Eos % (Auto) 0.0 Baso % (Auto) 0.1 Absolute Neuts (auto) 13.6 H Absolute Lymphs (auto) 0.55 L Total Counted Not Reportable Differential Comment SCANNED Sodium 139 Potassium 4.6 Chloride 107 Carbon Dioxide 22.0 Anion Gap 10 BUN 46 H Creatinine 2.16 H Estim Creat Clear Calc 29.20 Est GFR (MDRD) Af Amer 39 L Est GFR (MDRD) Non-Af 32 L BUN/Creatinine Ratio 21.3 H Glucose 141 H Calcium 9.0 Medical Necessity - Tobacco Use Smoking Status: Former smoker Assessment/Plan RECOMMENDATIONS: 1. Continue scheduled bronchodilators and steroids, wean to oral. 2. Discontinue antibiotics pending d/w Dr. Samano 3. Wean supplemental oxygen to maintain saturations at or above 88%. Encourage incentive spirometer use. 4. Repeat walking oximetry study, patient will need to have O2 requirements of 6L or less with exertion prior to consideration for discharge 5. Continue Lovenox for DVT prophylaxis 6. Recent CT not included in documents received from [facility], will again request CT from 1 week ago 7. Patient is wishing to establish care the pulmonary medicine [facility]. Please ensure that he has a follow-up visit scheduled within 2 weeks of his discharge from the hospital. IMPRESSIONS: 1. Acute on chronic hypoxemic respiratory failure, likely secondary to COPD with exacerbation Although the patient may have infectious infiltrates on plain film chest imaging, the findings appear to be more suggestive of interstitial fibrosis. In addition, the patient reports only having utilized supplemental oxygen on an as-needed basis in his home environment previously. It is highly likely that he has been progressive hypoxic for prolonged period of time. He is wishing to transfer his pulmonary care here to [facility]. He also reports having had a CT chest completed just recently through [facility] however according to records received, his last chest imaging was CTA of the chest on 12/06/2016 which showed no PE, chronic interstitial prominence with superimposed basilar atelectasis, a potential right upper lung nodule with follow-up recommended. It was recommended the patient have a bronchoscopy at that time, however not done while he was admitted at [facility] secondary to persistent hypoxia. Continue scheduled bronchodilators and wean to oral steroids. Sputum showing 1+ Pseudomonas, antibiotics can likely be discontinued. Patient remains afebrile. The patient is on a triple therapy inhaler regimen as an outpatient, which would likely suggest advanced stage COPD. Continue to wean supplemental oxygen to maintain saturations at or above 88%. Repeat walking oximetry study. Plan for the patient to follow-up in the pulmonary medicine clinic within 2 weeks of his discharge from the hospital. 2. Allergic rhinitis/postnasal drip Continue Flonase as ordered. 3. History of tobacco abuse, in remission/history of bladder cancer/gout/hyperlipidemia/hypertension/stage III CKD/day Complicates care, management, recovery and prognosis. Continue home medications as indicated. Continue to work with physical therapy. This note was generated with [employer] dictation software. It may contain incorrect words, spelling, and punctuation that were not noted in checking the note before signing.
--- NOTE | 2017-11-19 08:52 | PN_ITS ---
Subjective: The patient was seen and examined. Reports less shortness of breath this morning, is ambulating in the room but is still desaturating. Complains of productive cough of white to yellow sputum, this is also improved. Currently maintaining appropriate saturations on 5 L of oxygen supplementation. His baseline requirements are 2 L at night and periodically as needed through the day. Objective: Recent lab and culture data reviewed. Sputum culture showing 1+ pseudomonas aeruginosa. Respiratory viral panel negative. Chest x-ray 11/16 showed hyperexpansion of the lungs and interstitial density throughout the left lung, likely fibrosis versus infiltrate. Bullous disease and areas of scarring in both lungs. CTA of the chest dated 12/06/16 from [facility] demonstrated no PE , chronic interstitial prominence with superimposed basilar atelectasis, and a potential right lung nodule in the upper lobe. - Physical Exam General: Alert, Oriented x3, Cooperative, - - Mild conversational dyspnea HEENT: Atraumatic, Normocephalic Oral: Moist Mucosa, No Gingival or Mucosal Lesions/ Ulcerations Neck: Supple, No Nodes, Trachea Midline Lungs: No rhonchi, No wheeze, No rales, Diminished, Tachypneic - With activity, - - Symmetric expansion, no dullness to percussion Cardiovascular: Normal S1, Normal S2, No murmurs, Irregular Rate, No rub noted, No Gallop Abdomen: Bowel Sounds Present, Soft, Non Tender, Non-Distended Extremities: No clubbing, No cyanosis, No edema Skin: No rashes, No breakdown Musculoskeletal: No Tenderness to Palpation of Joints or Extremities Lymphatic: No Cervical, Supraclavicular, or Inguinal Adenopathy Neurological: Cranial nerves II-XII grossly intact, Neuro grossly intact, Motor Exam 5/5 strength throughout Psych/Mental Status: Alert and oriented to time, place, person, mood and affect Vital Signs Temp Pulse Resp BP Pulse Ox 98.2 F 99 22 H 151/78 H 93 11/19/17 04:06 11/19/17 04:06 11/19/17 04:23 11/19/17 04:06 11/19/17 04:06 Oxygen Flow Rate (L/min) 5 Oxygen Delivery Method Nasal Cannula Weight: 154 lb Body Mass Index (BMI) 21.4 Intake and Output for Last 24 Hours 11/17/17 11/18/17 11/19/17 23:59 23:59 23:59 Intake Total 3420 / 3420 1250 / 1250 821 / 821 Output Total 850 / 850 1300 / 1300 1725 / 1725 Balance 2570 / 2570 -50 / -50 -904 / -904 Microbiology Past 72 Hours 11/16/17 20:00 Gram Stain - Final Sputum, Expectorated/Coughed Respiratory Culture - Final Pseudomonas aeroginosa 11/16/17 19:45 Respiratory Panel (PCR) - Final Mucosa - Nasopharyngeal Laboratory Tests Past 24 Hrs 11/19/17 11/19/17 06:28 06:28 WBC 15.1 H RBC 3.61 L Hgb 13.8 Hct 38.6 L MCV 106.9 H MCH 38.2 H MCHC 35.8 RDW 14.2 RDW Differential 54.4 H Plt Count 126 L MPV 11.7 Immature Gran % (Auto) 1.600 H Neut % (Auto) 89.6 H Lymph % (Auto) 3.6 L [place] % (Auto) 5.1 Eos % (Auto) 0.0 Baso % (Auto) 0.1 Absolute Neuts (auto) 13.6 H Absolute Lymphs (auto) 0.55 L Total Counted Not Reportable Differential Comment SCANNED Sodium 139 Potassium 4.6 Chloride 107 Carbon Dioxide 22.0 Anion Gap 10 BUN 46 H Creatinine 2.16 H Estim Creat Clear Calc 29.20 Est GFR (MDRD) Af Amer 39 L Est GFR (MDRD) Non-Af 32 L BUN/Creatinine Ratio 21.3 H Glucose 141 H Calcium 9.0 Medical Necessity - Tobacco Use Smoking Status: Former smoker Assessment/Plan RECOMMENDATIONS: 1. Continue scheduled bronchodilators and steroids, wean to oral. 2. Discontinue antibiotics pending d/w Dr. Samano 3. Wean supplemental oxygen to maintain saturations at or above 88%. Encourage incentive spirometer use. 4. Repeat walking oximetry study, patient will need to have O2 requirements of 6L or less with exertion prior to consideration for discharge 5. Continue Lovenox for DVT prophylaxis 6. Recent CT not included in documents received from [facility], will again request CT from 1 week ago 7. Patient is wishing to establish care the pulmonary medicine [facility]. Please ensure that he has a follow-up visit scheduled within 2 weeks of his discharge from the hospital. IMPRESSIONS: 1. Acute on chronic hypoxemic respiratory failure, likely secondary to COPD with exacerbation Although the patient may have infectious infiltrates on plain film chest imaging , the findings appear to be more suggestive of interstitial fibrosis. In addition, the patient reports only having utilized supplemental oxygen on an as- needed basis in his home environment previously. It is highly likely that he has been progressive hypoxic for prolonged period of time. He is wishing to transfer his pulmonary care here to [facility]. He also reports having had a CT chest completed just recently through [facility] however according to records received, his last chest imaging was CTA of the chest on 12/06/2016 which showed no PE, chronic interstitial prominence with superimposed basilar atelectasis, a potential right upper lung nodule with follow-up recommended. It was recommended the patient have a bronchoscopy at that time, however not done while he was admitted at [facility] secondary to persistent hypoxia. Continue scheduled bronchodilators and wean to oral steroids. Sputum showing 1+ Pseudomonas, antibiotics can likely be discontinued. Patient remains afebrile. The patient is on a triple therapy inhaler regimen as an outpatient, which would likely suggest advanced stage COPD. Continue to wean supplemental oxygen to maintain saturations at or above 88%. Repeat walking oximetry study. Plan for the patient to follow-up in the pulmonary medicine clinic within 2 weeks of his discharge from the hospital. 2. Allergic rhinitis/postnasal drip Continue Flonase as ordered. 3. History of tobacco abuse, in remission/history of bladder cancer/gout/ hyperlipidemia/hypertension/stage III CKD/day Complicates care, management, recovery and prognosis. Continue home medications as indicated. Continue to work with physical therapy. This note was generated with [employer] dictation software. It may contain incorrect words, spelling, and punctuation that were not noted in checking the note before signing.
[2017-11-19] MEDS: hydrALAZINE 50 MG Tablet PO ×2 (09:09→21:02)
[2017-11-19] MEDS: Metoprolol(XL)Succ 25 MG Tablet 12.5 MG PO (09:09)
[2017-11-19] MEDS: Cyanocobalamin 500 MCG Tablet 1000 MCG PO (09:09)
[2017-11-19] MEDS: Allopurinol 100 MG Tablet 200 MG PO (09:09)
--- NOTE | 2017-11-19 09:50 | NURSING ---
per therapy, p.o. was 73% on 4l o2 after ambulating 125ft.
--- NOTE | 2017-11-19 10:15 | PCM.PN.HOSP ---
Patient Problems: Active and Suspected Problems COPD (chronic obstructive pulmonary disease) (Acute) Subjective: Up and ambulated with PT on Oxygen. Dropped down to 60-70% SaO2. Currently better at rest with sat of 92%. Vitals/I&O's: Vital Signs Temp Pulse Resp BP Pulse Ox 36.6 C 109 H 30 H 158/73 H 92 11/19/17 08:52 11/19/17 09:09 11/19/17 08:58 11/19/17 08:52 11/19/17 08:52 Oxygen Flow Rate (L/min) 4 Oxygen Delivery Method Nasal Cannula Weight: 69.853 kg Body Mass Index (BMI) 21.4 Intake and Output for Last 24 Hours 11/17/17 11/18/17 11/19/17 23:59 23:59 23:59 Intake Total 3420 / 3420 1250 / 1250 821 / 821 Output Total 850 / 850 1300 / 1300 1725 / 1725 Balance 2570 / 2570 -50 / -50 -904 / -904 General: Alert, No apparent distress, - - up at the side of bed. no resp distress. no converstional dyspnea HEENT: Atraumatic, Normocephalic Oral: Moist Mucosa, No Gingival or Mucosal Lesions/ Ulcerations Neck: No Nodes, Thyroid Normal Size and Texture Lungs: Clear to auscultation, No rhonchi, No wheeze, Diminished Cardiovascular: Regular rate, Regular Rhythm, Normal S1, Normal S2, No murmurs Abdomen: Bowel Sounds Present, Soft, Non Tender, Non-Distended, No Hepato-splenomegaly Extremities: No edema Skin: No rashes, No breakdown Musculoskeletal: No Muscle Wasting Psych/Mental Status: Normal Affect, Appropriate Microbiology Past 72 Hours 11/16/17 20:00 Sputum, Expectorated/Coughed Gram Stain - Final 11/16/17 20:00 Sputum, Expectorated/Coughed Respiratory Culture - Final Pseudomonas aeroginosa 11/16/17 19:45 Mucosa - Nasopharyngeal Respiratory Panel (PCR) - Final Laboratory Results 11/19/17 06:28: WBC 15.1 H, RBC 3.61 L, Hgb 13.8, Hct 38.6 L, MCV 106.9 H, MCH 38.2 H, MCHC 35.8, RDW 14.2, RDW Differential 54.4 H, Plt Count 126 L, MPV 11.7, Immature Gran % (Auto) 1.600 H, Neut % (Auto) 89.6 H, Lymph % (Auto) 3.6 L, [place] % (Auto) 5.1, Eos % (Auto) 0.0, Baso % (Auto) 0.1, Absolute Neuts (auto) 13.6 H, Absolute Lymphs (auto) 0.55 L, Total Counted Not Reportable, Differential Comment SCANNED 11/19/17 06:28: Sodium 139, Potassium 4.6, Chloride 107, Carbon Dioxide 22.0, Anion Gap 10, BUN 46 H, Creatinine 2.16 H, Estim Creat Clear Calc 29.20, Est GFR (MDRD) Af Amer 39 L, Est GFR (MDRD) Non-Af 32 L, BUN/Creatinine Ratio 21.3 H, Glucose 141 H, Calcium 9.0 Current Medications Acetaminophen (Tylenol) 650 mg PO Q6H PRN PRN PRN Reason: Mild Pain (scale 0-3)/T>100.7 Albuterol Sulfate (Ventolin Aerosols) 2.5 mg INHALATION Q2H PRN PRN PRN Reason: SHORTNESS OF BREATH Albuterol/Ipratropium (Duoneb) 3 ml INHALATION Q4H.RT [facility] Last Admin: 11/19/17 07:00 Dose: 3 ml Allopurinol (Zyloprim) 200 mg PO DAILY [facility] Last Admin: 11/19/17 09:09 Dose: 200 mg Aspirin (Aspirin, Baby) 81 mg PO QHS [facility] Last Admin: 11/18/17 20:55 Dose: 81 mg Cyanocobalamin (Vitamin B12) 1,000 mcg PO DAILY@0800 [facility] Last Admin: 11/19/17 09:09 Dose: 1,000 mcg Enoxaparin Sodium (Lovenox) 30 mg SC DAILY@0600 [facility] Last Admin: 11/19/17 05:57 Dose: 30 mg Fluticasone Propionate (Flonase Nasal [place]) 1 spray NASAL BID PRN PRN PRN Reason: ALLERGIES Last Admin: 11/19/17 04:02 Dose: 1 spray Hydralazine HCl (Apresoline) 50 mg PO BID [facility] Last Admin: 11/19/17 09:09 Dose: 50 mg Levofloxacin (Levaquin Iv) 750 mg in 150 mls @ 100 mls/hr IV Q48H [facility] Last Admin: 11/18/17 21:02 Dose: 100 mls/hr Magnesium Hydroxide (Milk Of Magnesia) 30 ml PO DAILY PRN PRN PRN Reason: Constipation Metoprolol Succinate (Toprol Xl (Beta Sergio)) 12.5 mg PO DAILY [facility] Last Admin: 11/19/17 09:09 Dose: 12.5 mg Ondansetron HCl (Zofran) 4 mg IV Q8H PRN PRN PRN Reason: Nausea Pantoprazole Sodium (Protonix) 20 mg PO QHS [facility] Last Admin: 11/18/17 20:56 Dose: 20 mg Prednisone () 40 mg PO DAILY@0800 [facility] Sodium Chloride () 5 - 30 ml IV UD PRN PRN Reason: SALINE FLUSH Last Admin: 11/19/17 05:58 Dose: 20 ml Medical Necessity - Tobacco Use Smoking Status: Former smoker Assessment/Plan All Active Problems COPD (chronic obstructive pulmonary disease) (Acute) 1. Acute COPD exacerbation: still dropping into 60-70% with ambulation. Did have FONTAINE with this. Question if has been hypoxic for a long time and has physiologically adapted. Cont Solu-Medrol, BDs, on empiric levaquin follow up with pulm as outpt 2. Acute on chronic resp failure wean oxygen as tolerated will need oxygen continuous upon discharge (flow yet to be determined) 3. CKD 3 stable no prior labs available to be compared to follow up with nephrology as outpt. 4. DVT proph: LMWH.
--- NOTE | 2017-11-19 10:23 | PN_ITS ---
Patient Problems: Active and Suspected Problems COPD (chronic obstructive pulmonary disease) (Acute) Subjective: Up and ambulated with PT on Oxygen. Dropped down to 60-70% SaO2. Currently better at rest with sat of 92%. Vitals/I&O's: Vital Signs Temp Pulse Resp BP Pulse Ox 36.6 C 109 H 30 H 158/73 H 92 11/19/17 08:52 11/19/17 09:09 11/19/17 08:58 11/19/17 08:52 11/19/17 08:52 Oxygen Flow Rate (L/min) 4 Oxygen Delivery Method Nasal Cannula Weight: 69.853 kg Body Mass Index (BMI) 21.4 Intake and Output for Last 24 Hours 11/17/17 11/18/17 11/19/17 23:59 23:59 23:59 Intake Total 3420 / 3420 1250 / 1250 821 / 821 Output Total 850 / 850 1300 / 1300 1725 / 1725 Balance 2570 / 2570 -50 / -50 -904 / -904 General: Alert, No apparent distress, - - up at the side of bed. no resp distress. no converstional dyspnea HEENT: Atraumatic, Normocephalic Oral: Moist Mucosa, No Gingival or Mucosal Lesions/ Ulcerations Neck: No Nodes, Thyroid Normal Size and Texture Lungs: Clear to auscultation, No rhonchi, No wheeze, Diminished Cardiovascular: Regular rate, Regular Rhythm, Normal S1, Normal S2, No murmurs Abdomen: Bowel Sounds Present, Soft, Non Tender, Non-Distended, No Hepato- splenomegaly Extremities: No edema Skin: No rashes, No breakdown Musculoskeletal: No Muscle Wasting Psych/Mental Status: Normal Affect, Appropriate Microbiology Past 72 Hours 11/16/17 20:00 Sputum, Expectorated/Coughed Gram Stain - Final 11/16/17 20:00 Sputum, Expectorated/Coughed Respiratory Culture - Final Pseudomonas aeroginosa 11/16/17 19:45 Mucosa - Nasopharyngeal Respiratory Panel (PCR) - Final Laboratory Results 11/19/17 06:28: WBC 15.1 H, RBC 3.61 L, Hgb 13.8, Hct 38.6 L, MCV 106.9 H, MCH 38.2 H, MCHC 35.8, RDW 14.2, RDW Differential 54.4 H, Plt Count 126 L, MPV 11.7 , Immature Gran % (Auto) 1.600 H, Neut % (Auto) 89.6 H, Lymph % (Auto) 3.6 L, [place] % (Auto) 5.1, Eos % (Auto) 0.0, Baso % (Auto) 0.1, Absolute Neuts (auto) 13.6 H, Absolute Lymphs (auto) 0.55 L, Total Counted Not Reportable, Differential Comment SCANNED 11/19/17 06:28: Sodium 139, Potassium 4.6, Chloride 107, Carbon Dioxide 22.0, Anion Gap 10, BUN 46 H, Creatinine 2.16 H, Estim Creat Clear Calc 29.20, Est GFR (MDRD) Af Amer 39 L, Est GFR (MDRD) Non-Af 32 L, BUN/Creatinine Ratio 21.3 H , Glucose 141 H, Calcium 9.0 Current Medications Acetaminophen (Tylenol) 650 mg PO Q6H PRN PRN PRN Reason: Mild Pain (scale 0-3)/T>100.7 Albuterol Sulfate (Ventolin Aerosols) 2.5 mg INHALATION Q2H PRN PRN PRN Reason: SHORTNESS OF BREATH Albuterol/Ipratropium (Duoneb) 3 ml INHALATION Q4H.RT [facility] Last Admin: 11/19/17 07:00 Dose: 3 ml Allopurinol (Zyloprim) 200 mg PO DAILY [facility] Last Admin: 11/19/17 09:09 Dose: 200 mg Aspirin (Aspirin, Baby) 81 mg PO QHS [facility] Last Admin: 11/18/17 20:55 Dose: 81 mg Cyanocobalamin (Vitamin B12) 1,000 mcg PO DAILY@0800 [facility] Last Admin: 11/19/17 09:09 Dose: 1,000 mcg Enoxaparin Sodium (Lovenox) 30 mg SC DAILY@0600 [facility] Last Admin: 11/19/17 05:57 Dose: 30 mg Fluticasone Propionate (Flonase Nasal [place]) 1 spray NASAL BID PRN PRN PRN Reason: ALLERGIES Last Admin: 11/19/17 04:02 Dose: 1 spray Hydralazine HCl (Apresoline) 50 mg PO BID [facility] Last Admin: 11/19/17 09:09 Dose: 50 mg Levofloxacin (Levaquin Iv) 750 mg in 150 mls @ 100 mls/hr IV Q48H [facility] Last Admin: 11/18/17 21:02 Dose: 100 mls/hr Magnesium Hydroxide (Milk Of Magnesia) 30 ml PO DAILY PRN PRN PRN Reason: Constipation Metoprolol Succinate (Toprol Xl (Beta Sergio)) 12.5 mg PO DAILY [facility] Last Admin: 11/19/17 09:09 Dose: 12.5 mg Ondansetron HCl (Zofran) 4 mg IV Q8H PRN PRN PRN Reason: Nausea Pantoprazole Sodium (Protonix) 20 mg PO QHS [facility] Last Admin: 11/18/17 20:56 Dose: 20 mg Prednisone () 40 mg PO DAILY@0800 [facility] Sodium Chloride () 5 - 30 ml IV UD PRN PRN Reason: SALINE FLUSH Last Admin: 11/19/17 05:58 Dose: 20 ml Medical Necessity - Tobacco Use Smoking Status: Former smoker Assessment/Plan All Active Problems COPD (chronic obstructive pulmonary disease) (Acute) 1. Acute COPD exacerbation: * still dropping into 60-70% with ambulation. Did have FONTAINE with this. * Question if has been hypoxic for a long time and has physiologically adapted. * Cont Solu-Medrol, BDs, on empiric levaquin * follow up with pulm as outpt 2. Acute on chronic resp failure * wean oxygen as tolerated * will need oxygen continuous upon discharge (flow yet to be determined) 3. CKD 3 * stable * no prior labs available to be compared to * follow up with nephrology as outpt. 4. DVT proph: LMWH.
--- NOTE | 2017-11-19 16:05 | NURSING ---
PT AMBULATED 60FT IN [place] WITH 6L OF O2, SATS DROPPED TO 80%. PT THEN AMBULATED BACK TO ROOM WHERE P.O. REGISTERED BETWEEN 78-80%. PT NO AMBULATED ON ROOM AIR.
[2017-11-19] MEDS: Aspirin 81 MG TAB.CHEW PO (21:02)
[2017-11-19] MEDS: Pantoprazole Sodium 20 MG Tablet PO (21:02)
[2017-11-20] VITALS (15 sets, daily range): BP systolic 133–174; BP diastolic 62–85; PULSE 84–98; RESP 18–22; TEMP 36.5–37.1; O2SAT 89–95
[2017-11-20] MEDS: Ipratropium/Albuterol Sulfate 3 ML AMPUL.NEB INHALATION ×4 (07:22→19:12)
[2017-11-20] MEDS: predniSONE 20 MG Tablet 40 MG PO (08:45)
[2017-11-20] MEDS: Cyanocobalamin 500 MCG Tablet 1000 MCG PO (08:45)
[2017-11-20] MEDS: Metoprolol(XL)Succ 25 MG Tablet 12.5 MG PO (08:46)
[2017-11-20] MEDS: hydrALAZINE 50 MG Tablet PO ×2 (08:46→22:28)
[2017-11-20] MEDS: Allopurinol 100 MG Tablet 200 MG PO (08:47)
--- NOTE | 2017-11-20 09:15 | PCM.PN.HOSP ---
Patient Problems: Active and Suspected Problems COPD (chronic obstructive pulmonary disease) (Acute) Subjective: Still with FONTAINE. Coughed up some brown phlegm today. Feels that he mobilizing sputum better today. Vitals/I&O's: Vital Signs Temp Pulse Resp BP Pulse Ox 37.1 C 84 22 H 146/73 H 92 11/20/17 04:55 11/20/17 08:46 11/20/17 07:22 11/20/17 04:55 11/20/17 08:34 Oxygen Flow Rate (L/min) 4 Oxygen Delivery Method Nasal Cannula Weight: 69.853 kg Body Mass Index (BMI) 21.4 Intake and Output for Last 24 Hours 11/18/17 11/19/17 11/20/17 23:59 23:59 23:59 Intake Total 1250 / 1250 1621 / 1621 0 / 0 Output Total 1300 / 1300 1725 / 1725 Balance -50 / -50 -104 / -104 0 / 0 General: Alert, No apparent distress HEENT: Atraumatic, Normocephalic Oral: Moist Mucosa, No Gingival or Mucosal Lesions/ Ulcerations Neck: No Nodes, Thyroid Normal Size and Texture Lungs: Clear to auscultation, No rhonchi, No wheeze, Diminished Cardiovascular: Regular rate, Regular Rhythm, Normal S1, Normal S2 Abdomen: Bowel Sounds Present, Soft, Non Tender, Non-Distended, No Hepato-splenomegaly Extremities: No clubbing, No cyanosis, No edema Skin: No rashes, No breakdown Musculoskeletal: No Tenderness to Palpation of Joints or Extremities, No Muscle Wasting Neurological: Coordination normal, Gait narrow based and stable Psych/Mental Status: Normal Affect, Appropriate Microbiology Past 72 Hours 11/16/17 20:00 Sputum, Expectorated/Coughed Gram Stain - Final 11/16/17 20:00 Sputum, Expectorated/Coughed Respiratory Culture - Final Pseudomonas aeroginosa 11/16/17 19:45 Mucosa - Nasopharyngeal Respiratory Panel (PCR) - Final Current Medications Acetaminophen (Tylenol) 650 mg PO Q6H PRN PRN PRN Reason: Mild Pain (scale 0-3)/T>100.7 Albuterol Sulfate (Ventolin Aerosols) 2.5 mg INHALATION Q2H PRN PRN PRN Reason: SHORTNESS OF BREATH Albuterol/Ipratropium (Duoneb) 3 ml INHALATION Q4H.RT [facility] Last Admin: 11/20/17 07:22 Dose: 3 ml Allopurinol (Zyloprim) 200 mg PO DAILY [facility] Last Admin: 11/20/17 08:47 Dose: 200 mg Aspirin (Aspirin, Baby) 81 mg PO QHS [facility] Last Admin: 11/19/17 21:02 Dose: 81 mg Cyanocobalamin (Vitamin B12) 1,000 mcg PO DAILY@0800 [facility] Last Admin: 11/20/17 08:45 Dose: 1,000 mcg Enoxaparin Sodium (Lovenox) 30 mg SC DAILY@0600 [facility] Last Admin: 11/20/17 05:08 Dose: Not Given Fluticasone Propionate (Flonase Nasal [place]) 1 spray NASAL BID PRN PRN PRN Reason: ALLERGIES Last Admin: 11/19/17 21:03 Dose: 1 spray Hydralazine HCl (Apresoline) 50 mg PO BID [facility] Last Admin: 11/20/17 08:46 Dose: 50 mg Piperacillin Sod/Tazobactam Sod (Zosyn) 3.375 gm in 50 mls @ 12.5 mls/hr IV Q8 [facility] Magnesium Hydroxide (Milk Of Magnesia) 30 ml PO DAILY PRN PRN PRN Reason: Constipation Metoprolol Succinate (Toprol Xl (Beta Sergio)) 12.5 mg PO DAILY [facility] Last Admin: 11/20/17 08:46 Dose: 12.5 mg Ondansetron HCl (Zofran) 4 mg IV Q8H PRN PRN PRN Reason: Nausea Pantoprazole Sodium (Protonix) 20 mg PO QHS [facility] Last Admin: 11/19/17 21:02 Dose: 20 mg Prednisone () 40 mg PO DAILY@0800 [facility] Last Admin: 11/20/17 08:45 Dose: 40 mg Sodium Chloride () 5 - 30 ml IV UD PRN PRN Reason: SALINE FLUSH Last Admin: 11/19/17 05:58 Dose: 20 ml Medical Necessity - Tobacco Use Smoking Status: Former smoker Assessment/Plan All Active Problems COPD (chronic obstructive pulmonary disease) (Acute) 1. Acute COPD exacerbation: still dropping into 60-70% with ambulation. Did have FONTAINE with this. Question if has been hypoxic for a long time and has physiologically adapted. Cont Solu-Medrol, BDs, on empiric levaquin follow up with pulm as outpt 2. Acute on chronic resp failure wean oxygen as tolerated will need oxygen continuous upon discharge (flow yet to be determined) ambulatory pulse ox prior to discharge. still dropping into 60s and 70s. 3. CKD 3 stable no prior labs available to be compared to follow up with nephrology as outpt. 4. Suspected psuedomonal pneumonia +SCx Sensitivities pending changed abx from Levaquin to Zosyn. 5. DVT proph: LMWH. Code Visit Inpatient E&M: 79949 Subs Hosp L2
--- NOTE | 2017-11-20 09:19 | PN_ITS ---
Patient Problems: Active and Suspected Problems COPD (chronic obstructive pulmonary disease) (Acute) Subjective: Still with FONTAINE. Coughed up some brown phlegm today. Feels that he mobilizing sputum better today. Vitals/I&O's: Vital Signs Temp Pulse Resp BP Pulse Ox 37.1 C 84 22 H 146/73 H 92 11/20/17 04:55 11/20/17 08:46 11/20/17 07:22 11/20/17 04:55 11/20/17 08:34 Oxygen Flow Rate (L/min) 4 Oxygen Delivery Method Nasal Cannula Weight: 69.853 kg Body Mass Index (BMI) 21.4 Intake and Output for Last 24 Hours 11/18/17 11/19/17 11/20/17 23:59 23:59 23:59 Intake Total 1250 / 1250 1621 / 1621 0 / 0 Output Total 1300 / 1300 1725 / 1725 Balance -50 / -50 -104 / -104 0 / 0 General: Alert, No apparent distress HEENT: Atraumatic, Normocephalic Oral: Moist Mucosa, No Gingival or Mucosal Lesions/ Ulcerations Neck: No Nodes, Thyroid Normal Size and Texture Lungs: Clear to auscultation, No rhonchi, No wheeze, Diminished Cardiovascular: Regular rate, Regular Rhythm, Normal S1, Normal S2 Abdomen: Bowel Sounds Present, Soft, Non Tender, Non-Distended, No Hepato- splenomegaly Extremities: No clubbing, No cyanosis, No edema Skin: No rashes, No breakdown Musculoskeletal: No Tenderness to Palpation of Joints or Extremities, No Muscle Wasting Neurological: Coordination normal, Gait narrow based and stable Psych/Mental Status: Normal Affect, Appropriate Microbiology Past 72 Hours 11/16/17 20:00 Sputum, Expectorated/Coughed Gram Stain - Final 11/16/17 20:00 Sputum, Expectorated/Coughed Respiratory Culture - Final Pseudomonas aeroginosa 11/16/17 19:45 Mucosa - Nasopharyngeal Respiratory Panel (PCR) - Final Current Medications Acetaminophen (Tylenol) 650 mg PO Q6H PRN PRN PRN Reason: Mild Pain (scale 0-3)/T>100.7 Albuterol Sulfate (Ventolin Aerosols) 2.5 mg INHALATION Q2H PRN PRN PRN Reason: SHORTNESS OF BREATH Albuterol/Ipratropium (Duoneb) 3 ml INHALATION Q4H.RT [facility] Last Admin: 11/20/17 07:22 Dose: 3 ml Allopurinol (Zyloprim) 200 mg PO DAILY [facility] Last Admin: 11/20/17 08:47 Dose: 200 mg Aspirin (Aspirin, Baby) 81 mg PO QHS [facility] Last Admin: 11/19/17 21:02 Dose: 81 mg Cyanocobalamin (Vitamin B12) 1,000 mcg PO DAILY@0800 [facility] Last Admin: 11/20/17 08:45 Dose: 1,000 mcg Enoxaparin Sodium (Lovenox) 30 mg SC DAILY@0600 [facility] Last Admin: 11/20/17 05:08 Dose: Not Given Fluticasone Propionate (Flonase Nasal [place]) 1 spray NASAL BID PRN PRN PRN Reason: ALLERGIES Last Admin: 11/19/17 21:03 Dose: 1 spray Hydralazine HCl (Apresoline) 50 mg PO BID [facility] Last Admin: 11/20/17 08:46 Dose: 50 mg Piperacillin Sod/Tazobactam Sod (Zosyn) 3.375 gm in 50 mls @ 12.5 mls/hr IV Q8 [facility] Magnesium Hydroxide (Milk Of Magnesia) 30 ml PO DAILY PRN PRN PRN Reason: Constipation Metoprolol Succinate (Toprol Xl (Beta Sergio)) 12.5 mg PO DAILY [facility] Last Admin: 11/20/17 08:46 Dose: 12.5 mg Ondansetron HCl (Zofran) 4 mg IV Q8H PRN PRN PRN Reason: Nausea Pantoprazole Sodium (Protonix) 20 mg PO QHS [facility] Last Admin: 11/19/17 21:02 Dose: 20 mg Prednisone () 40 mg PO DAILY@0800 [facility] Last Admin: 11/20/17 08:45 Dose: 40 mg Sodium Chloride () 5 - 30 ml IV UD PRN PRN Reason: SALINE FLUSH Last Admin: 11/19/17 05:58 Dose: 20 ml Medical Necessity - Tobacco Use Smoking Status: Former smoker Assessment/Plan All Active Problems COPD (chronic obstructive pulmonary disease) (Acute) 1. Acute COPD exacerbation: * still dropping into 60-70% with ambulation. Did have FONTAINE with this. * Question if has been hypoxic for a long time and has physiologically adapted. * Cont Solu-Medrol, BDs, on empiric levaquin * follow up with pulm as outpt 2. Acute on chronic resp failure * wean oxygen as tolerated * will need oxygen continuous upon discharge (flow yet to be determined) * ambulatory pulse ox prior to discharge. * still dropping into 60s and 70s. 3. CKD 3 * stable * no prior labs available to be compared to * follow up with nephrology as outpt. 4. Suspected psuedomonal pneumonia * +SCx * Sensitivities pending * changed abx from Levaquin to Zosyn. 5. DVT proph: LMWH. Code Visit Inpatient E&M: 76204 Subs Hosp L2
--- NOTE | 2017-11-20 10:22 | PN_ITS ---
Patient Problems: Active and Suspected Problems COPD (chronic obstructive pulmonary disease) (Acute) Subjective: Patient was seen and examined. Patient reports he had a significant episode of epistaxis last evening and continues to have a small amount this morning. Still having a cough with productive sputum of grayish brown, thick mucus. No blood noted in sputum. He significantly desaturated yesterday on 6 L into the low 80s. He would like to stop his Lovenox secondary to the epistaxis and would like to walk more today. Objective: Clinical Impression(s) from Imaging Studies Chest X-Ray 11/16/17 16:07 IMPRESSION: Bullous COPD with fibrosis and scarring. On the left cannot exclude inflammatory infiltrates. Electronically Signed: Jay Jay Gabriel MD at 17:29 EDT , Service support , - Physical Exam General: Alert, Oriented x3, Cooperative, No apparent distress, Well developed, Well nourished, - - Mild conversational dyspnea HEENT: Atraumatic, Normocephalic Oral: Moist Mucosa, No Gingival or Mucosal Lesions/ Ulcerations Neck: Supple, No Nodes, Trachea Midline Lungs: No rhonchi, No wheeze, No rales, Diminished, Short of Breath - With conversation, - - symmetric expansion, no dullness to percussion Cardiovascular: Normal S1, Normal S2, Irregular Rate Abdomen: Bowel Sounds Present, Soft, Non Tender Extremities: No clubbing, No cyanosis, No edema Skin: No rashes, No breakdown Musculoskeletal: No Tenderness to Palpation of Joints or Extremities Lymphatic: No Cervical, Supraclavicular, or Inguinal Adenopathy Neurological: Neuro grossly intact Psych/Mental Status: Alert and oriented to time, place, person, mood and affect Vital Signs Temp Pulse Resp BP Pulse Ox 98.8 F 84 22 H 146/73 H 92 11/20/17 04:55 11/20/17 08:46 11/20/17 07:22 11/20/17 04:55 11/20/17 08:34 Oxygen Flow Rate (L/min) 4 Oxygen Delivery Method Nasal Cannula Weight: 153 lb 15.992 oz Body Mass Index (BMI) 21.4 Intake and Output for Last 24 Hours 11/18/17 11/19/17 11/20/17 23:59 23:59 23:59 Intake Total 1250 / 1250 1621 / 1621 0 / 0 Output Total 1300 / 1300 1725 / 1725 Balance -50 / -50 -104 / -104 0 / 0 Microbiology Past 72 Hours 11/16/17 20:00 Gram Stain - Final Sputum, Expectorated/Coughed Respiratory Culture - Final Pseudomonas aeroginosa 11/16/17 19:45 Respiratory Panel (PCR) - Final Mucosa - Nasopharyngeal Medical Necessity - Tobacco Use Smoking Status: Former smoker Assessment/Plan All Active Problems COPD (chronic obstructive pulmonary disease) (Acute) RECOMMENDATIONS: 1. Continue scheduled bronchodilators and oral steroids, wean over next 12-14 days 2. Wean supplemental oxygen to maintain saturations at or above 88%. Encourage incentive spirometer use. 3. Repeat walking oximetry study today, patient will need to have O2 requirements of 6L or less with exertion prior to consideration for discharge 4. Okay to discontinue Lovenox given persistent epistaxis, start saline nasal spray 5. Patient is wishing to establish care the pulmonary medicine of [place]. Please ensure that he has a follow-up visit scheduled within 2 weeks of his discharge from the hospital. IMPRESSIONS: 1. Acute on chronic hypoxemic respiratory failure Likely multifactorial, probable COPD exacerbation. ? pulmonary hypertension. Although the patient may have infectious infiltrates on plain film chest imaging , the findings appear to be more suggestive of interstitial fibrosis. In addition, the patient reports only having utilized supplemental oxygen on an as- needed basis in his home environment previously. It is highly likely that he has been progressive hypoxic for prolonged period of time. He is wishing to transfer his pulmonary care here to [facility]. It was recommended the patient have a bronchoscopy, however not done while he was admitted at [place] secondary to persistent hypoxia. Continue scheduled bronchodilators and oral steroids. Sputum showing 1+ Pseudomonas aeroginosa. The patient is on a triple therapy inhaler regimen as an outpatient, which would likely suggest advanced stage COPD. Continue to wean supplemental oxygen to maintain saturations at or above 88%. Repeat walking oximetry study. Plan for the patient to follow-up in the pulmonary medicine clinic within 2 weeks of his discharge from the hospital. 2. Allergic rhinitis/postnasal drip Continue Flonase as ordered. 3. History of tobacco abuse, in remission/history of bladder cancer/gout/ hyperlipidemia/hypertension/stage III CKD/day Complicates care, management, recovery and prognosis. Continue home medications as indicated. Continue to work with physical therapy. This note was generated with [employer] dictation software. It may contain incorrect words, spelling, and punctuation that were not noted in checking the note before signing.
[2017-11-20] MEDS: Piperacil/Tazobactam 3.375 GM/50 ML ML IV ×2 (14:21→22:29)
[2017-11-20] MEDS: 0.9% NaCl Peripheral Flush Adult/Peds IV (14:21)
[2017-11-20] MEDS: Sodium Chloride 0.65% 1 SPRAY SPRAY.BTL 2 SPRAY NASAL (14:22)
[2017-11-20] MEDS: Pantoprazole Sodium 20 MG Tablet PO (22:28)
[2017-11-20] MEDS: Aspirin 81 MG TAB.CHEW PO (22:29)
[2017-11-21] VITALS (9 sets, daily range): BP systolic 142–197; BP diastolic 80–108; PULSE 84–100; RESP 18–21; TEMP 36.6–36.9; O2SAT 2–92
[2017-11-21] MEDS: hydrALAZINE 50 MG Tablet PO (03:53)
[2017-11-21] MEDS: Metoprolol(XL)Succ 25 MG Tablet 12.5 MG PO (03:54)
--- NOTE | 2017-11-21 05:14 | NURSING ---
Pt was agitated last night and had a coughing spell but refused breathing treatments. Pt's Bp was 197/[address] Sanz and he put in an order for IV Hydralazine. Pharmacy informed me we are out of IV hydralazine house wide and it is on back order. Contacted Dr. Sanz again and he gave me permission to give PT's a.m. oral BP medications early. 50 mg po Hydralazine and 12.5 mg po Toprol were given at 0353 am 11/21/17
[2017-11-21 06:30] LABS: Anion Gap 7 (5-15); BUN 41 mg/dL (7-18); BUN/Creat Ratio 18.6 RATIO (10-20); Calcium,Total 8.6 mg/dL (8.5-10.1); Chloride 107 mmol/L (98-107); Creatinine, Serum 2.21 mg/dL (0.70-1.30); EST Glomerular Filtration Rate 31 mL/min (>60); Est Glom Filt Rate - Afr Amer 38 mL/min (>60); Estimated Creatinine Clearance 28.53 ml/min; Glucose 91 mg/dL (74-106); Potassium 5.2 mmol/L (3.5-5.1); Sodium Level 141 mmol/L (136-145)
[2017-11-21] MEDS: Piperacil/Tazobactam 3.375 GM/50 ML ML IV (06:41)
[2017-11-21 06:46] LABS: Absolute Lymphocyte Count 1.24 X10^3/ul (0.83-4.51); Absolute Neutrophil Count 12.2 X10^3/uL (2.0-7.7); Basophil# 0.02 X10^3/uL; Basophil% 0.1 % (0-1); Eosinophil# 0.04 X10^3/uL; Eosinophils% 0.3 % (0-5); Hematocrit 39.6 % (40-54); Hemoglobin 14.1 g/dl (13.0-16.5); Lymphocyte # 1.24 X10^3/ul (4.0); Lymphocyte % 8.1 % (19-41); Mean Corp Hgb Conc 35.6 g/gl (32-36); Mean Corpuscular Hgb 38.4 pg (27.0-32.0); Mean Corpuscular Volume 107.9 fL (80-94); Mean Platelet Vol. 12.2 fl (6.2-12.0); Monocyte% 10.5 % (0-10); Neutrophil # 12.17 X10^3/uL (2.7-7.7); Neutrophil % 79.5 % (47-70); Platelet Count 131 K/mm3 (150-450); RBC Distribution Width CV 14.5 % (11.6-14.6); RBC Distribution Width SD 55.5 fl (35.1-43.9); Red Blood Count 3.67 M/mm3 (4.6-6.2); White Blood Count 15.3 K/mm3 (4.4-11.0)
[2017-11-21 06:56] LABS: Differential Indicated SCAN CRITERIA MET; POSITIVE COUNT NO; POSITIVE DIFFERENTIAL YES; POSITIVE MORPHOLOGY NO
[2017-11-21 07:03] LABS: Differential Comment SCANNED
[2017-11-21] MEDS: Ipratropium/Albuterol Sulfate 3 ML AMPUL.NEB INHALATION ×2 (07:27→10:49)
--- NOTE | 2017-11-21 08:55 | PCM.DC ---
- Discharge Diagnoses Current Active Problems: Current Active and Chronic Problems CKD (chronic kidney disease) stage 3, GFR 30-59 ml/min (Chronic) COPD (chronic obstructive pulmonary disease) (Acute) Chronic respiratory failure with hypoxia (Chronic) Gout (Chronic) History of bladder cancer (Chronic) HTN (hypertension) (Chronic) HLD (hyperlipidemia) (Chronic) GERD (gastroesophageal reflux disease) (Chronic) You will use the following diet at home:: No restrictions Your food should be the consistency of: Regular Your liquids should be the consistency of: Regular/Thin Discharge Activity: Return to Normal Activity May resume sexual activity in: No Restrictions Call your doctor if you observe: Shortness of breath, Fainting spells Instructions: Discharge Instructions for Pneumonia, Discharge Instructions: COPD, Treatment for COPD Additional Instructions: Oxygen 2 liters at rest. 6 liters with activity. Keep oxygen greater than equal to 88%. Allergies/Adverse Reactions: Allergies No Known Allergies Allergy (Verified 11/16/17 15:59) Medications to take at Discharge Allopurinol [Zyloprim] 200 mg PO DAILY 11/16/17 Aspirin [Aspirin, Baby] 81 mg PO QHS 11/16/17 Cyanocobalamin [Vitamin B12] 1,000 mcg PO DAILY@0800 11/16/17 Fluticasone/Vilanterol [Breo Ellipta 100-25 Mcg INH] 1 puff INHALATION DAILY 11/16/17 Metoprolol Succinate 12.5 mg PO DAILY 11/16/17 Omeprazole 20 mg PO QHS 11/16/17 Tiotropium [place] [Spiriva] 1 puff INHALATION DAILY 11/16/17 hydrALAZINE [Apresoline] 50 mg PO BID 11/16/17 Guaifenesin [Mucinex] 1,200 mg PO BID #14 tbmp.12hr 11/21/17 Prednisone 4 tab PO DAILY #16 tab 11/21/17 Sodium Chloride 0.65% [[place] Nasal [place]] 2 spray NASAL TID PRN PRN spray.btl 11/21/17 levoFLOXacin tablet [Levaquin tablet] 500 mg PO QODAY #4 tab 11/21/17 The following prescriptions were given: levoFLOXacin tablet [Levaquin tablet] 500 mg PO QODAY #4 tab Prednisone 4 tab PO DAILY #16 tab Guaifenesin [Mucinex] 1,200 mg PO BID #14 tbmp.12hr Primary Care Physician: Azael Malone [Primary Care Provider] - Within 2 Weeks Test Results: Test results from this visit will be discussed in further detail at your follow-up appointment, if applicable. Please Follow Up With: Paresh Samano MD - COPD When: 2-4 weeks Please Follow Up With: Tati Lyons DO - Nephrology for chronic kidney disease. When: 1-2 months. Proposed Discharge Date: 11/21/17
--- NOTE | 2017-11-21 08:59 | DCINST_ITS ---
- Discharge Diagnoses Current Active Problems: Current Active and Chronic Problems CKD (chronic kidney disease) stage 3, GFR 30-59 ml/min (Chronic) COPD (chronic obstructive pulmonary disease) (Acute) Chronic respiratory failure with hypoxia (Chronic) Gout (Chronic) History of bladder cancer (Chronic) HTN (hypertension) (Chronic) HLD (hyperlipidemia) (Chronic) GERD (gastroesophageal reflux disease) (Chronic) You will use the following diet at home:: No restrictions Your food should be the consistency of: Regular Your liquids should be the consistency of: Regular/Thin Discharge Activity: Return to Normal Activity May resume sexual activity in: No Restrictions Call your doctor if you observe: Shortness of breath, Fainting spells Instructions: Discharge Instructions for Pneumonia, Discharge Instructions: COPD, Treatment for COPD Additional Instructions: Oxygen 2 liters at rest. 6 liters with activity. Keep oxygen greater than equal to 88%. Allergies/Adverse Reactions: Allergies No Known Allergies Allergy (Verified 11/16/17 15:59) Medications to take at Discharge Allopurinol [Zyloprim] 200 mg PO DAILY 11/16/17 Aspirin [Aspirin, Baby] 81 mg PO QHS 11/16/17 Cyanocobalamin [Vitamin B12] 1,000 mcg PO DAILY@0800 11/16/17 Fluticasone/Vilanterol [Breo Ellipta 100-25 Mcg INH] 1 puff INHALATION DAILY 10/29 Metoprolol Succinate 12.5 mg PO DAILY 11/16/17 Omeprazole 20 mg PO QHS 11/16/17 Tiotropium [place] [Spiriva] 1 puff INHALATION DAILY 11/16/17 hydrALAZINE [Apresoline] 50 mg PO BID 11/16/17 Guaifenesin [Mucinex] 1,200 mg PO BID #14 tbmp.12hr 11/21/17 Prednisone 4 tab PO DAILY #16 tab 11/21/17 Sodium Chloride 0.65% [[place] Nasal [place]] 2 spray NASAL TID PRN PRN spray.btl 11/21/17 levoFLOXacin tablet [Levaquin tablet] 500 mg PO QODAY #4 tab 11/21/17 The following prescriptions were given: levoFLOXacin tablet [Levaquin tablet] 500 mg PO QODAY #4 tab Prednisone 4 tab PO DAILY #16 tab Guaifenesin [Mucinex] 1,200 mg PO BID #14 tbmp.12hr Primary Care Physician: Azael Malone [Primary Care Provider] - Within 2 Weeks Test Results: Test results from this visit will be discussed in further detail at your follow- up appointment, if applicable. Please Follow Up With: Paresh Samano MD - COPD When: 2-4 weeks Please Follow Up With: Tati Lyons DO - Nephrology for chronic kidney disease. When: 1-2 months. Proposed Discharge Date: 11/21/17
--- NOTE | 2017-11-21 08:59 | PCM.DC.SUM ---
Discharge Date and Diagnosis - Problem List Patient Problems: Active and Suspected Problems Acute and chronic respiratory failure (Acute) Pseudomonal pneumonia (Acute) COPD (chronic obstructive pulmonary disease) (Acute) Date of Admission: 11/16/17 Date of Discharge: 11/21/17 - Primary Discharge Diagnosis Active and Suspected Problems Acute and chronic respiratory failure (Acute) Pseudomonal pneumonia (Acute) COPD (chronic obstructive pulmonary disease) (Acute) - Secondary Discharge Diagnosis Chronic Problems CKD (chronic kidney disease) stage 3, GFR 30-59 ml/min (Chronic) Chronic respiratory failure with hypoxia (Chronic) Gout (Chronic) History of bladder cancer (Chronic) HTN (hypertension) (Chronic) HLD (hyperlipidemia) (Chronic) GERD (gastroesophageal reflux disease) (Chronic) Hospital Course and Treatment Imaging Results: Clinical Impression(s) from Imaging Studies Chest X-Ray 11/16/17 16:07 IMPRESSION: Bullous COPD with fibrosis and scarring. On the left cannot exclude inflammatory infiltrates. Electronically Signed: Jay Jay Gabriel MD at 17:29 EDT , Service support , Operations: None Procedures: None Summary of Care Provided: The patient is a 77 year old M presents with shortness of breath. Diagnosed with an AECOPD. Subsequently, had productive sputum positive for iglesias sensitive Pseudomonas. Patient had dramatic drops in his pulse ox down to 60s and 70s with exertion, but steadily improved and now maintaining at 88%. Patient to be discharged home today. 1. Acute COPD exacerbation: Improved Question if has been hypoxic for a long time and has physiologically adapted. Complete prednisone follow up with pulm as outpt 2. Acute on chronic resp failure wean oxygen as tolerated will need oxygen continuous upon discharge (flow yet to be determined) 2 liters oxygen with rest and up to 6 with activity. 3. CKD 3 stable no prior labs available to be compared to follow up with nephrology as outpt. 4. psuedomonal pneumonia pansensitive continue levaquin (renally dosed)[] Discharge Diet: No Restrictions Discharge Activity: Return to Normal Activity May resume sexual activity in: No Restrictions Call your doctor if you observe: Shortness of breath, Fainting spells Home Medications: Medications to take at Discharge Allopurinol [Zyloprim] 200 mg PO DAILY 11/16/17 Aspirin [Aspirin, Baby] 81 mg PO QHS 11/16/17 Cyanocobalamin [Vitamin B12] 1,000 mcg PO DAILY@0800 11/16/17 Fluticasone/Vilanterol [Breo Ellipta 100-25 Mcg INH] 1 puff INHALATION DAILY 11/16/17 Metoprolol Succinate 12.5 mg PO DAILY 11/16/17 Omeprazole 20 mg PO QHS 11/16/17 Tiotropium [place] [Spiriva] 1 puff INHALATION DAILY 11/16/17 hydrALAZINE [Apresoline] 50 mg PO BID 11/16/17 Guaifenesin [Mucinex] 1,200 mg PO BID #14 tbmp.12hr 11/21/17 Prednisone 4 tab PO DAILY #16 tab 11/21/17 Sodium Chloride 0.65% [[place] Nasal [place]] 2 spray NASAL TID PRN PRN spray.btl 11/21/17 levoFLOXacin tablet [Levaquin tablet] 500 mg PO QODAY #4 tab 11/21/17 Following Prescrptions Were Given to Patient: levoFLOXacin tablet [Levaquin tablet] 500 mg PO QODAY #4 tab Prednisone 4 tab PO DAILY #16 tab Guaifenesin [Mucinex] 1,200 mg PO BID #14 tbmp.12hr Primary Care Physician: Azael Malone [Primary Care Provider] - Within 2 Weeks Please Follow Up With: Paresh Samano MD - COPD When: 2-4 weeks Please Follow Up With: Tati Lyons DO - Nephrology for chronic kidney disease. When: 1-2 months. Patient Instructions: Discharge Instructions: COPD, Discharge Instructions for Pneumonia, Treatment for COPD Disposition: Home Minutes spent on discharge:: 32 Patient Condition:: Fair Medical Necessity - Tobacco Use Smoking Status: Former smoker Meaningful Use Info Meaningful Use Diagnoses (Choose all that apply): None applicable Code Visit Inpatient E&M: 75024 Disch Hosp
--- NOTE | 2017-11-21 09:06 | PCM.PROGNOTE ---
Patient Problems: Active and Suspected Problems Acute and chronic respiratory failure (Acute) Pseudomonal pneumonia (Acute) COPD (chronic obstructive pulmonary disease) (Acute) Subjective: Patient was seen and examined. Sitting up in bed in no acute distress. Talking on the phone with no dyspnea noted. Reports cough and sputum production have improved, however still producing thick brown/greenish sputum. He is maintaining appropriate saturations on 2-4 L of oxygen. Voices concern over concentrator and portable oxygen at home if he requires 6 L with exertion. Objective: Recent lab and culture data reviewed. Sputum culture showing Pseudomonas. Viral respiratory panel was negative. - Physical Exam General: Alert, Oriented x3, Cooperative, No apparent distress HEENT: Atraumatic, Normocephalic Oral: Moist Mucosa, No Gingival or Mucosal Lesions/ Ulcerations Neck: Supple, Trachea Midline Lungs: No wheeze, Diminished, - - Few posterior rhonchi and rales, somewhat clears with cough Cardiovascular: Normal S1, Normal S2 Abdomen: Bowel Sounds Present, Soft, Non Tender, Non-Distended Extremities: No cyanosis, No edema Skin: - - No changes from previous Musculoskeletal: No Tenderness to Palpation of Joints or Extremities Lymphatic: No Cervical, Supraclavicular, or Inguinal Adenopathy Neurological: Neuro grossly intact Psych/Mental Status: Alert and oriented to time, place, person, mood and affect Vital Signs Temp Pulse Resp BP Pulse Ox 97.9 F 94 20 H 161/86 H 90 11/21/17 06:32 11/21/17 07:27 11/21/17 07:27 11/21/17 06:32 11/21/17 07:27 Oxygen Flow Rate (L/min) 4 Oxygen Delivery Method Nasal Cannula Weight: 153 lb 15.992 oz Body Mass Index (BMI) 21.4 Intake and Output for Last 24 Hours 11/19/17 11/20/17 11/21/17 23:59 23:59 23:59 Intake Total 1621 / 1621 0 / 0 505 / 505 Output Total 1725 / 1725 1475 / 1475 Balance -104 / -104 0 / 0 -970 / -970 Microbiology Past 72 Hours 11/16/17 20:00 Gram Stain - Final Sputum, Expectorated/Coughed Respiratory Culture - Final Pseudomonas aeroginosa Laboratory Tests Past 24 Hrs 07/11/18 07/11/18 05:30 05:30 WBC 15.3 H RBC 3.67 L Hgb 14.1 Hct 39.6 L MCV 107.9 H MCH 38.4 H MCHC 35.6 RDW 14.5 RDW Differential 55.5 H Plt Count 131 L MPV 12.2 H Immature Gran % (Auto) 1.500 H Neut % (Auto) 79.5 H Lymph % (Auto) 8.1 L [place] % (Auto) 10.5 H Eos % (Auto) 0.3 Baso % (Auto) 0.1 Absolute Neuts (auto) 12.2 H Absolute Lymphs (auto) 1.24 Total Counted Not Reportable Differential Comment SCANNED Diff Path Review May foll Sodium 141 Potassium 5.2 H Chloride 107 Carbon Dioxide 27.0 Anion Gap 7 BUN 41 H Creatinine 2.21 H Estim Creat Clear Calc 28.53 Est GFR (MDRD) Af Amer 38 L Est GFR (MDRD) Non-Af 31 L BUN/Creatinine Ratio 18.6 Glucose 91 Calcium 8.6 Medical Necessity - Tobacco Use Smoking Status: Former smoker Assessment/Plan All Active Problems Acute and chronic respiratory failure (Acute) Pseudomonal pneumonia (Acute) COPD (chronic obstructive pulmonary disease) (Acute) RECOMMENDATIONS: 1. Continue scheduled bronchodilators and oral steroids, wean over next 12-14 days. Continue nasal saline. 2. Wean supplemental oxygen to maintain saturations at or above 88%. Encourage incentive spirometer use. 3. Okay to d/c home from pulmonary perspective with supplemental oxygen 6L with exertion and 2L at rest at all times 4. Continue antibiotics to complete course for pseudomonas 5. Patient is wishing to establish care the pulmonary medicine of [place]. Please ensure that he has a follow-up visit scheduled within 2 weeks of his discharge from the hospital. IMPRESSIONS: 1. Acute on chronic hypoxemic respiratory failure Likely multifactorial, probable COPD exacerbation. ? pulmonary hypertension. Although the patient may have infectious infiltrates on plain film chest imaging, the findings appear to be more suggestive of interstitial fibrosis. In addition, the patient reports only having utilized supplemental oxygen on an as-needed basis in his home environment previously. It is highly likely that he has been progressive hypoxic for prolonged period of time. He is wishing to transfer his pulmonary care here to [facility]. It was recommended the patient have a bronchoscopy, however not done while he was admitted at [place] secondary to persistent hypoxia. For now, will continue scheduled bronchodilators and oral steroids. Sputum showing 1+ Pseudomonas aeroginosa, on oral Levaquin. The patient is on a triple therapy inhaler regimen as an outpatient, which would likely suggest advanced stage COPD. Continue to wean supplemental oxygen to maintain saturations at or above 88%. Repeat walking oximetry study. Plan for the patient to follow-up in the pulmonary medicine clinic within 2 weeks of his discharge from the hospital. He would benefit from repeat pulmonary function testing and walking oximetry. 2. Allergic rhinitis/postnasal drip Continue Flonase as ordered. 3. History of tobacco abuse, in remission/history of bladder cancer/gout/hyperlipidemia/hypertension/stage III CKD/day Complicates care, management, recovery and prognosis. Continue home medications as indicated. Continue to work with physical therapy. This note was generated with [employer] dictation software. It may contain incorrect words, spelling, and punctuation that were not noted in checking the note before signing.
--- NOTE | 2017-11-21 09:08 | DS.PCM_ITS ---
Discharge Date and Diagnosis - Problem List Patient Problems: Active and Suspected Problems Acute and chronic respiratory failure (Acute) Pseudomonal pneumonia (Acute) COPD (chronic obstructive pulmonary disease) (Acute) Date of Admission: 11/16/17 Date of Discharge: 11/21/17 - Primary Discharge Diagnosis Active and Suspected Problems Acute and chronic respiratory failure (Acute) Pseudomonal pneumonia (Acute) COPD (chronic obstructive pulmonary disease) (Acute) - Secondary Discharge Diagnosis Chronic Problems CKD (chronic kidney disease) stage 3, GFR 30-59 ml/min (Chronic) Chronic respiratory failure with hypoxia (Chronic) Gout (Chronic) History of bladder cancer (Chronic) HTN (hypertension) (Chronic) HLD (hyperlipidemia) (Chronic) GERD (gastroesophageal reflux disease) (Chronic) Hospital Course and Treatment Imaging Results: Clinical Impression(s) from Imaging Studies Chest X-Ray 11/16/17 16:07 IMPRESSION: Bullous COPD with fibrosis and scarring. On the left cannot exclude inflammatory infiltrates. Electronically Signed: Jay Jay Gabriel MD at 17:29 EDT , Service support , Operations: None Procedures: None Summary of Care Provided: The patient is a 77 year old M presents with shortness of breath. Diagnosed with an AECOPD. Subsequently, had productive sputum positive for iglesias sensitive Pseudomonas. Patient had dramatic drops in his pulse ox down to 60s and 70s with exertion, but steadily improved and now maintaining at 88%. Patient to be discharged home today. 1. Acute COPD exacerbation: * Improved * Question if has been hypoxic for a long time and has physiologically adapted. * Complete prednisone * follow up with pulm as outpt 2. Acute on chronic resp failure * wean oxygen as tolerated * will need oxygen continuous upon discharge (flow yet to be determined) * 2 liters oxygen with rest and up to 6 with activity. 3. CKD 3 * stable * no prior labs available to be compared to * follow up with nephrology as outpt. 4. psuedomonal pneumonia * pansensitive * continue levaquin (renally dosed)[] Discharge Diet: No Restrictions Discharge Activity: Return to Normal Activity May resume sexual activity in: No Restrictions Call your doctor if you observe: Shortness of breath, Fainting spells Home Medications: Medications to take at Discharge Allopurinol [Zyloprim] 200 mg PO DAILY 11/16/17 Aspirin [Aspirin, Baby] 81 mg PO QHS 11/16/17 Cyanocobalamin [Vitamin B12] 1,000 mcg PO DAILY@0800 11/16/17 Fluticasone/Vilanterol [Breo Ellipta 100-25 Mcg INH] 1 puff INHALATION DAILY 10/29 Metoprolol Succinate 12.5 mg PO DAILY 11/16/17 Omeprazole 20 mg PO QHS 11/16/17 Tiotropium Sharon [Spiriva] 1 puff INHALATION DAILY 11/16/17 hydrALAZINE [Apresoline] 50 mg PO BID 11/16/17 Guaifenesin [Mucinex] 1,200 mg PO BID #14 tbmp.12hr 11/21/17 Prednisone 4 tab PO DAILY #16 tab 11/21/17 Sodium Chloride 0.65% [[place] Nasal [place]] 2 spray NASAL TID PRN PRN spray.btl 11/21/17 levoFLOXacin tablet [Levaquin tablet] 500 mg PO QODAY #4 tab 11/21/17 Following Prescrptions Were Given to Patient: levoFLOXacin tablet [Levaquin tablet] 500 mg PO QODAY #4 tab Prednisone 4 tab PO DAILY #16 tab Guaifenesin [Mucinex] 1,200 mg PO BID #14 tbmp.12hr Primary Care Physician: Azael Malone [Primary Care Provider] - Within 2 Weeks Please Follow Up With: Paresh Samano MD - COPD When: 2-4 weeks Please Follow Up With: Tati Lyons DO - Nephrology for chronic kidney disease. When: 1-2 months. Patient Instructions: Discharge Instructions: COPD, Discharge Instructions for Pneumonia, Treatment for COPD Disposition: Home Minutes spent on discharge:: 32 Patient Condition:: Fair Medical Necessity - Tobacco Use Smoking Status: Former smoker Meaningful Use Info Meaningful Use Diagnoses (Choose all that apply): None applicable Code Visit Inpatient E&M: 47778 Disch Hosp
--- NOTE | 2017-11-21 09:45 | CASEMGMT ---
ELISABET WOODRUFF spoke with patient regarding oxygen needs. Patient is setup with [facility] for oxygen at home. Patient states that he will need a portable tank to discharge home. ELISABET WOODRUFF called [facility] and spoke with [employer] if they could supply tank for patient to discharge home. [employer] stated that [facility] could deliver tank to hospital. ELISABET WOODRUFF obtained script for updated oxygen needs and faxed to [facility]. ELISABET WOODRUFF will continue to follow this patient and plan for a safe discharge.
[2017-11-21] MEDS: Allopurinol 100 MG Tablet 200 MG PO (09:47)
[2017-11-21] MEDS: predniSONE 20 MG Tablet 40 MG PO (09:47)
[2017-11-21] MEDS: Cyanocobalamin 500 MCG Tablet 1000 MCG PO (09:47)
[2017-11-21] MEDS: Ciprofloxacin 500 MG Tablet PO (11:54)
[2017-11-21 15:51] LABS: Pathologist Review Reviewed
--- NOTE | 2017-11-23 16:26 | CASEMGMT ---
ELISABET CM Discharge Follow-up Phone Call: LUIS: 12 Strata: 4 Call Date: 11/23/17 Discharge Date: 11/21/17 Time of Call: 1425 Duration: 1 min Admitting Diagnosis: COPD Exacerbation, Acute on chronic resp failure RN RANJAN attempted follow-up phone call after recent hospitalization. No answer, voice message left with return contact information. Patient had follow-up appts scheduled prior to discharge.
== END 2017-11-21 13:39 | disposition home or self-care (01) | DRG 177 ==
LOC: ED 17:09 → MS3 18:23
PROVIDERS: Internal Medicine Critical Care Medicine; Admitting Provider Hospitalist; Emergency Provider Emergency Medicine; Family Provider Internal Medicine; PCP Internal Medicine
DX: J15.1 Pneumonia due to Pseudomonas (principal); J96.21 Acute and chronic respiratory failure with hypoxia; J44.1 Chronic obstructive pulmonary disease with (acute) exacerbation; J44.0 Chronic obstructive pulmonary disease with (acute) lower respiratory infection; I12.9 Hypertensive chronic kidney disease with stage 1 through stage 4 chronic kidney disease, or unspecified chronic kidney disease; N18.3 Chronic kidney disease, stage 3 (moderate); Z87.891 Personal history of nicotine dependence; Z85.51 Personal history of malignant neoplasm of bladder; Z99.81 Dependence on supplemental oxygen; K21.9 Gastro-esophageal reflux disease without esophagitis; E78.5 Hyperlipidemia, unspecified; M10.9 Gout, unspecified
CPT/HCPCS: 36415; 36600; 71046; 80048; 82803; 83605; 85025; 87070; 87077; 87184; 87186; 87205; 87633; 93005; 94640; 94667; 94668; 97110; 97116; 97162; 97166; 97530; 99285; J7050; A4216

== ENCOUNTER → 2018-02-12 07:18 | Outpatient (CLI) | payer MEDICARE, BC, SELFPAY ==
--- NOTE | 2018-02-12 11:12 | PFTCOMP_ITS ---
COMPLETE PULMONARY FUNCTION TEST INTERPRETATION Brief HPI: Patient is a 77 year old male, currently under the care of Jennifer Hernández, who presents to [facility] for complete pulmonary function tests secondary to diagnosis of COPD and chronic respiratory failure. Respiratory therapist reports good effort and reproducible results. Interpretation: Forced expiration spirometry shows a severe large airways obstructive ventilatory defect with an FEV1 of 53% predicted. There is no significant bronchodilator response by ATS criteria. Spirograms are of good quality and plateau slowly, indicating slowly emptying areas of the lungs. The respiratory flow volume loop shows decreased expiratory flow rates at all lung volumes consistent with airway obstruction. Lung volumes by body plethysmography show a normal total lung capacity at 6.83 L, 102% predicted. All other lung volumes are within normal limits. Diffusion capacity by carbon monoxide is decreased at 27% predicted. The airway resistance is elevated. No previous pulmonary function tests were available for review. Impression: Severe large airways obstructive ventilatory defect with a symmetric reduction diffusing capacity, consistent with a diagnosis of advanced COPD.
== END ==
PROVIDERS: Family Provider Internal Medicine; PCP Internal Medicine; Referring Provider Nurse Practitioner Acute Care; Visit Provider Nurse Practitioner Acute Care
DX: J96.11 Chronic respiratory failure with hypoxia (principal)
CPT/HCPCS: 94060; 94726; 94729

== ENCOUNTER → 2018-02-19 10:42 | Outpatient (CLI) | payer MEDICARE, BC, SELFPAY ==
[2018-02-19 11:38] VITALS: PULSE 104; PULSE 82; PULSE 84; PULSE 86; PULSE 88; PULSE 89; PULSE 97; PULSE 98; O2SAT 78; O2SAT 82; O2SAT 84; O2SAT 87; O2SAT 88; O2SAT 89; O2SAT 94
--- NOTE | 2018-02-19 11:42 | CPS ---
Pt arrived on 4LNC 84%. Pt stated he left hospital prescribed 6LNC but wears 4LNC during the day and 2LNC at night. Patient recovered and test started on 4LNC and increased to 6LNC at minute 1. Multiple rests taken throughout test for patient to recover. Pt stated he is aware of his desaturations and sits to recover. Encouraged pt to wear his prescribed 6LNC and explained risks associated with low spO2.
--- NOTE | 2018-02-19 14:24 | PCM.PSN.6M ---
PSN 6 Minute Walk Test - 6 Minute Walk Test 6 Minute Walk Test: 6 Minute Walk Test PSN:6-Minute Walk Test Start: 02/19/18 11:38 Freq: Status: Active Protocol: RESP.6MINW Document 02/19/18 11:38 SMB (Rec: 02/19/18 11:53 SMB [id number]) 6 Minute Walk Test Date Performed 02/19/18 Time Performed 10:59 Height 5 ft 11 in Weight: 156 lb Weight in Pounds 156.[address]: Jennifer Hernández Assistive device used: None Pre-test Oxygen Flow Rate (L/min) (L/min) 4 Oxygen Delivery Method Nasal Cannula Pulse Ox (%) 94 Pulse Rate (60-100 beats/min) 84 Dyspnea Kristi Scale (0-10) 0 Exertion Kristi Scale (6-20) 11 1st minute Oxygen Flow Rate (L/min) (L/min) 6 Oxygen Delivery Method Nasal Cannula Pulse Ox (%) 84 Pulse Rate (60-100 beats/min) 97 Number of Rests Taken 1 2nd minute Oxygen Flow Rate (L/min) (L/min) 6 Oxygen Delivery Method Nasal Cannula Pulse Ox (%) 88 Pulse Rate (60-100 beats/min) 88 3rd minute Oxygen Flow Rate (L/min) (L/min) 6 Oxygen Delivery Method Nasal Cannula Pulse Ox (%) 87 Pulse Rate (60-100 beats/min) 86 4th minute Oxygen Flow Rate (L/min) (L/min) 6 Oxygen Delivery Method Nasal Cannula Pulse Ox (%) 89 Pulse Rate (60-100 beats/min) 89 5th minute Oxygen Flow Rate (L/min) (L/min) 6 Oxygen Delivery Method Nasal Cannula Pulse Ox (%) 82 Pulse Rate (60-100 beats/min) 98 6th minute Oxygen Flow Rate (L/min) (L/min) 6 Oxygen Delivery Method Nasal Cannula Pulse Ox (%) 78 Pulse Rate (60-100 beats/min) 104 H Dyspnea Kristi Scale (0-10) 6 Post-test Oxygen Flow Rate (L/min) (L/min) 6 Oxygen Delivery Method Nasal Cannula Pulse Ox (%) 94 Pulse Rate (60-100 beats/min) 82 Dyspnea Kristi Scale (0-10) 0 Exertion Kristi Scale (6-20) 13 Full Laps Walked 9 Partial Lap, Number of Tiles Walked 10 Total Distance Walked (ft) 541 02/19/18 11:42 Cardiopulmonary Services by Pia Renteria Pt arrived on 4LNC 84%. Pt stated he left hospital prescribed 6LNC but wears 4LNC during the day and 2LNC at night. Patient recovered and test started on 4LNC and increased to 6LNC at minute 1. Multiple rests taken throughout test for patient to recover. Pt stated he is aware of his desaturations and sits to recover. Encouraged pt to wear his prescribed 6LNC and explained risks associated with low spO2. Initialized on 02/19/18 11:42 - END OF NOTE - Interpretation Interpretation: The patient ambulated 541 feet over the course of 6 minutes on supplemental oxygen with multiple breaks. The patient arrived to testing on 4 L/min via nasal cannula with an oxygen saturation of 84%. Once the patient rested, his oxygen saturation improved to 94% on 4 L/min. The test was then initiated. However, the patient desaturated to 84% at minute #1 of testing. His supplemental flow rate was increased to 6 L/min. Despite this, the patient continued to experience desaturations as low as 78%. This testing indicated the presence of a severe pulmonary limitation to exercise tolerance. - Recommendations Recommendations: 4 L/min of supplemental oxygen should be utilized at rest. It appears that the patient requires a flow rate of greater than 6 L/min with exertion to maintain appropriate oxygen saturations. He was instructed to utilize this flow rate until he could be set up for a follow-up appointment in the pulmonary medicine clinic.
--- NOTE | 2018-02-19 14:28 | WT_ITS ---
PSN 6 Minute Walk Test - 6 Minute Walk Test 6 Minute Walk Test: 6 Minute Walk Test PSN:6-Minute Walk Test Start: 02/19/18 11:38 Freq: Status: Active Protocol: RESP.6MINW Document 02/19/18 11:38 SMB (Rec: 02/19/18 11:53 SMB [id number]) 6 Minute Walk Test Date Performed 02/19/18 Time Performed 10:59 Height 5 ft 11 in Weight: 156 lb Weight in Pounds 156.[address]: Jennifer Hernández Assistive device used: None Pre-test Oxygen Flow Rate (L/min) (L/min) 4 Oxygen Delivery Method Nasal Cannula Pulse Ox (%) 94 Pulse Rate (60-100 beats/min) 84 Dyspnea Kristi Scale (0-10) 0 Exertion Kristi Scale (6-20) 11 1st minute Oxygen Flow Rate (L/min) (L/min) 6 Oxygen Delivery Method Nasal Cannula Pulse Ox (%) 84 Pulse Rate (60-100 beats/min) 97 Number of Rests Taken 1 2nd minute Oxygen Flow Rate (L/min) (L/min) 6 Oxygen Delivery Method Nasal Cannula Pulse Ox (%) 88 Pulse Rate (60-100 beats/min) 88 3rd minute Oxygen Flow Rate (L/min) (L/min) 6 Oxygen Delivery Method Nasal Cannula Pulse Ox (%) 87 Pulse Rate (60-100 beats/min) 86 4th minute Oxygen Flow Rate (L/min) (L/min) 6 Oxygen Delivery Method Nasal Cannula Pulse Ox (%) 89 Pulse Rate (60-100 beats/min) 89 5th minute Oxygen Flow Rate (L/min) (L/min) 6 Oxygen Delivery Method Nasal Cannula Pulse Ox (%) 82 Pulse Rate (60-100 beats/min) 98 6th minute Oxygen Flow Rate (L/min) (L/min) 6 Oxygen Delivery Method Nasal Cannula Pulse Ox (%) 78 Pulse Rate (60-100 beats/min) 104 H Dyspnea Kristi Scale (0-10) 6 Post-test Oxygen Flow Rate (L/min) (L/min) 6 Oxygen Delivery Method Nasal Cannula Pulse Ox (%) 94 Pulse Rate (60-100 beats/min) 82 Dyspnea Kristi Scale (0-10) 0 Exertion Kristi Scale (6-20) 13 Full Laps Walked 9 Partial Lap, Number of Tiles Walked 10 Total Distance Walked (ft) 541 02/19/18 11:42 Cardiopulmonary Services by Pia Renteria Pt arrived on 4LNC 84%. Pt stated he left hospital prescribed 6LNC but wears 4LNC during the day and 2LNC at night. Patient recovered and test started on 4LNC and increased to 6LNC at minute 1. Multiple rests taken throughout test for patient to recover. Pt stated he is aware of his desaturations and sits to recover. Encouraged pt to wear his prescribed 6LNC and explained risks associated with low spO2. Initialized on 02/19/18 11:42 - END OF NOTE - Interpretation Interpretation: The patient ambulated 541 feet over the course of 6 minutes on supplemental oxygen with multiple breaks. The patient arrived to testing on 4 L/min via nasal cannula with an oxygen saturation of 84%. Once the patient rested, his oxygen saturation improved to 94% on 4 L/min. The test was then initiated. However, the patient desaturated to 84% at minute #1 of testing. His supplemental flow rate was increased to 6 L/min. Despite this, the patient continued to experience desaturations as low as 78%. This testing indicated the presence of a severe pulmonary limitation to exercise tolerance.
== END ==
PROVIDERS: Family Provider Internal Medicine; PCP Internal Medicine; Referring Provider Nurse Practitioner Acute Care; Visit Provider Nurse Practitioner Acute Care
DX: J96.11 Chronic respiratory failure with hypoxia (principal)
CPT/HCPCS: 94618

== ENCOUNTER → 2018-02-20 16:15 | Outpatient (CLI) | payer MEDICARE, BC, SELFPAY ==
[2018-02-20 16:46] LABS: Allen Test POS; Base Excess -1 mmol/L (-2 to +2); Bicarbonate 23.3 mmol/L (22-26); Blood Gas Specimen Type ART; O2 Delivery Device Nasal Can; PO2 62 mmHG (75-100); SITE L Radial; SO2 92 % (95-99); Time Given 1638; Total Carbon Dioxide 24 mmol/L; pCO2 35.4 mmHg (35-45); pH 7.43 (7.35-7.45)
== END ==
PROVIDERS: Family Provider Internal Medicine; PCP Internal Medicine; Referring Provider Nurse Practitioner Acute Care; Visit Provider Nurse Practitioner Acute Care
DX: J44.9 Chronic obstructive pulmonary disease, unspecified (principal)
CPT/HCPCS: 36600; 82803

== ENCOUNTER → 2018-02-26 12:52 | Outpatient (CLI) | payer MEDICARE, BC, SELFPAY ==
--- NOTE | 2018-02-26 12:53 | ECHOD_ITS ---
Reason For Study: DYSPNEA/SOB Procedure This was a 2D Doppler, Color Flow transthoracic echocardiogram. Exam performed in department. Left Ventricle Normal LV size. Left ventricular systolic function is normal. The estimated ejection fraction is 60 %. Stage 1 diastolic dysfunction. No regional wall motion abnormalities noted. Right Ventricle Normal RV size. Normal systolic function. Atria The left atrium is mildly enlarged. Normal right atrium. Mitral Valve Normal mitral valve. Trivial mitral valve insufficiency. Tricuspid Valve Normal tricuspid valve. Mild to moderate (1-2+) tricuspid valve insufficiency. Pulmonary artery systolic pressure is 49 mmHg. Aortic Valve Trisinus/trileaflet aortic valve. Mild focal aortic valve calcification. Pulmonic Valve Normal pulmonic valve. Great Vessels Normal aortic root. The pulmonary artery is normal size. Normal inferior vena cava. Pericardium/Pleural No pericardial effusion. MMode/2D Measurements & Calculations LVIDd: 4.8 cm IVSd: 0.95 cm Ao root diam: 3.0 cm LVIDs: 3.4 cm LVPWd: 1.0 cm LA dimension: 4.1 cm RVDd: 3.3 cm FS: 30.7 % LAV(MOD-bp): 82.5 ml LVAd ap4: 30.9 cm2 SV(MOD-sp4): 49.4 ml LAV(MOD-bp) Indexed: 42.6 ml/m2 EDV(MOD-sp4): 98.0 ml LAV(MOD-sp2): 72.1 ml EDV(sp4-el): 99.0 ml LAV(MOD-sp4): 86.2 ml LVAs ap4: 19.9 cm2 ESV(MOD-sp4): 48.6 ml ESV(sp4-el): 48.3 ml EF(MOD-sp4): 50.4 % EF(sp4-el): 51.2 % SV(sp4-el): 50.7 ml LA A4 area: 26.1 cm2 RA A4 area: 17.3 cm2 Time Measurements MV dec time: 0.30 sec Doppler Measurements & Calculations MV E max ron: 64.8 cm/sec Lat Peak E' Ron: 7.2 cm/sec Med Peak E' Ron: 7.0 cm/sec MV A max ron: 91.2 cm/sec E/E' lat: 9.0 E/E' med: 9.3 MV E/A: 0.71 Ao V2 max: 144.5 cm/sec LV V1 max: 110.7 cm/sec PA V2 max: 113.6 cm/sec Ao max P.4 mmHg LV V1 max P.9 mmHg TR max ron: 342.3 cm/sec TR max P.0 mmHg Interpretation Summary Normal LV size. Left ventricular systolic function is normal. The estimated ejection fraction is 60 %. Stage 1 diastolic dysfunction. The left atrium is mildly enlarged. Pulmonary artery systolic pressure is 49 mmHg. Ordering Physician: Jennifer Hernández Referring Physician: ALEX SANCHEZ Performed By: Lisa Garcia RDCS
== END ==
PROVIDERS: Family Provider Internal Medicine; PCP Internal Medicine; Referring Provider Nurse Practitioner Acute Care; Visit Provider Nurse Practitioner Acute Care
DX: Z98.890 Other specified postprocedural states (principal); Z90.79 Acquired absence of other genital organ(s)
CPT/HCPCS: 93306

== ENCOUNTER → 2018-02-27 12:09 | Outpatient (CLI) | payer MEDICARE, BC, SELFPAY ==
[2018-02-27 12:37] LABS: Absolute Lymphocyte Count 1.62 X10^3/ul (0.83-4.51); Absolute Neutrophil Count 5.3 X10^3/uL (2.0-7.7); Basophil# 0.02 X10^3/uL; Basophil% 0.3 % (0-1); Eosinophil# 0.11 X10^3/uL; Eosinophils% 1.4 % (0-5); Hemoglobin 13.2 g/dl (13.0-16.5); Lymphocyte # 1.62 X10^3/ul (4.0); Lymphocyte % 20.8 % (19-41); Mean Corp Hgb Conc 34.7 g/gl (32-36); Mean Corpuscular Hgb 38.4 pg (27.0-32.0); Mean Corpuscular Volume 110.5 fL (80-94); Mean Platelet Vol. 11.5 fl (6.2-12.0); Monocyte# 0.76 X10^3/uL; Monocyte% 9.7 % (0-10); Neutrophil # 5.28 X10^3/uL (2.7-7.7); Neutrophil % 67.7 % (47-70); Platelet Count 146 K/mm3 (150-450); RBC Distribution Width CV 13.7 % (11.6-14.6); RBC Distribution Width SD 53.8 fl (35.1-43.9); Red Blood Count 3.44 M/mm3 (4.6-6.2); White Blood Count 7.8 K/mm3 (4.4-11.0)
[2018-02-27 12:39] LABS: POSITIVE COUNT NO; POSITIVE DIFFERENTIAL NO; POSITIVE MORPHOLOGY NO
[2018-02-27 13:01] LABS: Rheumatoid Factor < 10.0 IU/mL (<15)
[2018-02-27 13:18] LABS: Anion Gap 10 (5-15); BUN 27 mg/dL (7-18); BUN/Creat Ratio 13.3 RATIO (10-20); Calcium,Total 8.9 mg/dL (8.5-10.1); Chloride 109 mmol/L (98-107); Creatinine, Serum 2.03 mg/dL (0.70-1.30); EST Glomerular Filtration Rate 34 mL/min (>60); Est Glom Filt Rate - Afr Amer 41 mL/min (>60); Glucose 87 mg/dL (74-106); Potassium 4.5 mmol/L (3.5-5.1); Sodium Level 141 mmol/L (136-145)
[2018-03-01 03:08] LABS: Cytoplasmic Ab (C-ANCA) <1:20 titer (Neg:<1:20)
[2018-03-01 09:45] LABS: CCP IgG Antibodies 6 units (0-19); Perinuclear Ab (P-ANCA) <1:20 titer (Neg:<1:20)
[2018-03-01 09:57] LABS: ANTINUCLEAR ANTIBODIES DIRECT Negative (Negative)
== END ==
PROVIDERS: Internal Medicine Cardiovascular Disease; Family Provider Internal Medicine; PCP Internal Medicine; Referring Provider Nurse Practitioner Acute Care; Visit Provider Nurse Practitioner Acute Care
DX: I27.21 Secondary pulmonary arterial hypertension (principal); I10 Essential (primary) hypertension; I36.1 Nonrheumatic tricuspid (valve) insufficiency
CPT/HCPCS: 36415; 80048; 85025; 86038; 86200; 86225; 86235; 86256; 86431

== ENCOUNTER → 2018-03-13 13:20 | Outpatient (CLI) | payer MEDICARE, BC, SELFPAY ==
--- NOTE | 2018-03-13 13:24 | CT_ITS ---
STUDY: CTA CHEST REASON FOR EXAM: Male, 77 years old. Shortness of breath. RADIATION DOSAGE (If Supplied By Facility): CTDIvol = ( 12.28 ) mGy, DLP = ( 433.20 ) mGycm TECHNIQUE: The examination was performed with the intravenous administration of 75CC ml of Isovue 370 contrast material. Post-processing of the angiographic images was performed, with multiplanar reformation and 3D reconstruction. Individualized dose optimization techniques were used for this CT. COMPARISON: None. FINDINGS: Normal enhancement of the main pulmonary artery and right and left pulmonary arteries. Normal enhancement of the bilateral peripheral pulmonary arteries. There is no demonstrated pulmonary embolism. Normal thoracic aorta and visualized great vessels. There is no demonstrated aortic dissection. Normal heart and pericardium. There are visualized mediastinal lymph nodes, which are within normal size limits, and with normal morphology. Normal hilar regions. Normal visualized trachea and bronchi. Hyperinflation. Emphysematous changes. Bullous changes are seen worse in the upper lobes. Focal area of increased linear markings in the anterior aspect of the left upper lobe as seen on axial image #171 and coronal image #95. This most likely represents a focal area of scarring. Mild increase in linear markings with areas of cystic changes in the peripheral aspect of the right middle lobe and lingular segment of the left upper lobe suggestive of scarring. Increased linear markings with areas of confluence and a cystic changes in both lower lobes suggestive of interstitial scarring. Normal pleura. Normal chest wall structures. Normal osseous structures. Normal visualized upper abdomen. CT/CTA Chest W/WO Contrast IMPRESSION: Hyperinflation and emphysematous changes. Findings suggestive of scarring with bullous changes and pulmonary fibrosis. Electronically Signed: Douglas Rivera MD at 14:00 EDT Tel [phone], Service support ,
== END ==
PROVIDERS: Family Provider Internal Medicine; PCP Internal Medicine; Referring Provider Nurse Practitioner Acute Care; Visit Provider Nurse Practitioner Acute Care
DX: I27.21 Secondary pulmonary arterial hypertension (principal)
CPT/HCPCS: 71275; Q9967

== ENCOUNTER → 2018-03-15 20:03 | Outpatient (CLI) | payer MEDICARE, BC, SELFPAY | PROVIDERS: Family Provider Internal Medicine; PCP Internal Medicine; Visit Provider Nurse Practitioner Acute Care | DX: G47.33 Obstructive sleep apnea (adult) (pediatric) (principal) | CPT/HCPCS: 95810 ==

== ENCOUNTER → 2018-03-28 12:09 | Outpatient (CLI) | payer MEDICARE, BC, SELFPAY ==
--- NOTE | 2018-03-28 12:12 | NM_ITS ---
CLINICAL: 77-year-old male with history of shortness of breath. VENTILATION-PERFUSION LUNG SCINTIGRAPHY COMPARISON: Plain film chest radiograph 03/28/2018 FINDINGS: The patient was administered 49.1 mCi 99m Tc DTPA aerosol. The aerosol ventilation study demonstrates heterogeneous ventilation in the bilateral lung bermudez without corresponding radiographic changes visualized on review of plain film chest x-ray dated 03/28/2018. Central clumping of the aerosol is identified in the bilateral hemithorax. Following the intravenous administration of 5.4 mCi of 99m Tc MAA, the pulmonary perfusion study reveals matching non-uniform perfusion in the right and left lungs correlating with the previously defined ventilation pattern. No moderate subsegmental or large segmental ventilation-perfusion mismatches are noted. NM/Lung Scan Vent/Perf IMPRESSION: 1. VERY LOW PROBABILITY FOR PULMONARY EMBOLUS (<10%) 99m Tc DTPA aerosol ventilation / 99m Tc MAA pulmonary perfusion imaging examination, according to PIOPED II interpretive criteria with regard given to the presence of > 2 ventilation-perfusion matches without corresponding radiographic changes. (Sotsman et al, Radiology 246: 941, 2008 Sofam et al, J Nucl Med 49: 1741, 2008). 2. Central clumping of the aerosol defined in the right-left hemithorax, may be secondary to obstructive airway mechanics and or clinical tachypnea. Electronically Signed: José Miguel Blomo DO at 23:25 EST Tel , Service support ,
--- NOTE | 2018-03-28 13:00 | RAD_ITS ---
STUDY: X-RAY CHEST REASON FOR EXAM: Male, 77 years old. COPD. TECHNIQUE: PA and lateral views of the chest. COMPARISON: November 16, 2017. FINDINGS: There is hyperinflation of the lungs consistent with chronic obstructive lung disease (COPD). There is reticulonodular interstitial thickening present in both lungs. There is a lucency at the right lung base that probably represents a large bleb or bulla. There is no demonstrated pleural abnormality. Normal size heart. There are calcified mediastinal and hilar lymph nodes. There is prominence of the pulmonary hilar arteries without peripheral pulmonary vascular congestion, suggesting pulmonary hypertension. There is atherosclerotic calcification of the aortic arch with tortuosity. There is demineralization of the osseous structures. Normal visualized ribs, clavicles, and shoulders. There is no demonstrated abnormality of the visualized soft tissue structures of the upper abdomen. RAD/Chest PA and Lateral IMPRESSION: COPD without radiographic evidence of acute cardiopulmonary disease. Electronically Signed: Jacey Casey MD at 3:07 EST , Service support ,
== END ==
PROVIDERS: Family Provider Internal Medicine; PCP Internal Medicine; Referring Provider Internal Medicine Critical Care Medicine; Visit Provider Internal Medicine Critical Care Medicine
DX: J44.9 Chronic obstructive pulmonary disease, unspecified (principal); J96.11 Chronic respiratory failure with hypoxia; I50.30 Unspecified diastolic (congestive) heart failure
CPT/HCPCS: 71046; 78582; 94762; A9540; A9567

== ENCOUNTER → 2018-04-01 13:20 | Outpatient (CLI) | payer MEDICARE, BC, SELFPAY | PROVIDERS: Family Provider Internal Medicine; PCP Internal Medicine; Visit Provider Internal Medicine Critical Care Medicine | DX: J96.11 Chronic respiratory failure with hypoxia (principal) | CPT/HCPCS: 94762 ==

== ENCOUNTER 2018-05-01 18:39 | Inpatient (IN) | payer MEDICARE, BC, SELFPAY ==
[2018-05-01] VITALS (10 sets, daily range): BP systolic 121–159; BP diastolic 61–85; PULSE 80–91; RESP 13–34; TEMP 36.7–37.4; O2SAT 79–97; BMI 21.4; BMI 22.6; BMI 22.7
--- NOTE | 2018-05-01 19:11 | EKG12_ITS ---
Test Reason : Blood Pressure : / mmHG Vent. Rate : 087 BPM Atrial Rate : 087 BPM P-R Int : 140 ms QRS Dur : 074 ms QT Int : 386 ms P-R-T Axes : 099 -41 028 degrees QTc Int : 464 ms Sinus rhythm with occasional Premature ventricular complexes Left axis deviation Septal infarct , age undetermined Abnormal ECG Confirmed by RIKY RAMIREZ, ANDERSON ([id number]), food expeditor SEN ROMAN ([id number]) on 05/03/2018 2:00:58 PM Referred By: Lucinda Bae Confirmed By:ANDERSON LAN MD
--- NOTE | 2018-05-01 19:30 | RAD_ITS ---
STUDY: X-RAY CHEST REASON FOR EXAM: Male, 78 years old. Shortness of breath and difficulty breathing TECHNIQUE: Single frontal view of the chest. COMPARISON: March 28, 2018 FINDINGS: Bilateral increase in interstitial markings unchanged. There is no demonstrated pleural abnormality. Normal size heart. Normal mediastinum and tono. Normal visualized pulmonary arteries. Normal visualized aortic arch and descending thoracic aorta. Normal visualized thoracic spine. Normal visualized ribs, clavicles, and shoulders. There is no demonstrated abnormality of the visualized soft tissue structures of the upper abdomen. RAD/Chest 1 View (Portable) IMPRESSION: Pulmonary fibrosis or interstitial lung disease unchanged Electronically Signed: Roverto Varner MD at 20:11 EST , Service support ,
[2018-05-01 19:40] LABS: Absolute Lymphocyte Count 1.39 X10^3/ul (0.83-4.51); Absolute Neutrophil Count 4.7 X10^3/uL (2.0-7.7); Basophil# 0.03 X10^3/uL; Basophil% 0.4 % (0-1); Eosinophils% 1.4 % (0-5); Hematocrit 34.9 % (40-54); Hemoglobin 11.8 g/dl (13.0-16.5); Lymphocyte # 1.39 X10^3/ul (4.0); Lymphocyte % 20.1 % (19-41); Mean Corp Hgb Conc 33.8 g/gl (32-36); Mean Corpuscular Hgb 37.3 pg (27.0-32.0); Mean Corpuscular Volume 110.4 fL (80-94); Mean Platelet Vol. 11.1 fl (6.2-12.0); Monocyte# 0.64 X10^3/uL; Monocyte% 9.3 % (0-10); Neutrophil # 4.74 X10^3/uL (2.7-7.7); Neutrophil % 68.7 % (47-70); Platelet Count 143 K/mm3 (150-450); RBC Distribution Width CV 14.8 % (11.6-14.6); Red Blood Count 3.16 M/mm3 (4.6-6.2); White Blood Count 6.9 K/mm3 (4.4-11.0)
[2018-05-01 19:41] LABS: Allen Test POS; Base Excess -6 mmol/L (-2 to +2); Bicarbonate 19.5 mmol/L (22-26); Blood Gas Specimen Type ART; O2 Delivery Device NRB Mask; PO2 81 mmHG (75-100); SITE L Radial; SO2 95 % (95-99); Total Carbon Dioxide 21 mmol/L; pCO2 36.1 mmHg (35-45); pH 7.34 (7.35-7.45)
[2018-05-01 19:41] LABS: POSITIVE COUNT NO; POSITIVE DIFFERENTIAL NO; POSITIVE MORPHOLOGY NO
[2018-05-01 19:42] LABS: Anion Gap 11 (5-15); BUN 32 mg/dL (7-18); BUN/Creat Ratio 13.6 RATIO (10-20); Calcium,Total 8.4 mg/dL (8.5-10.1); Chloride 108 mmol/L (98-107); Creatinine, Serum 2.36 mg/dL (0.70-1.30); EST Glomerular Filtration Rate 29 mL/min (>60); Est Glom Filt Rate - Afr Amer 35 mL/min (>60); Estimated Creatinine Clearance 26.33 ml/min; Glucose 99 mg/dL (74-106); Potassium 4.7 mmol/L (3.5-5.1); Sodium Level 141 mmol/L (136-145)
--- NOTE | 2018-05-01 20:10 | ED.RN ---
lactic 2.4
[2018-05-01 20:11] LABS: Lactic Acid 2.4 mmol/L (0.4-2.0)
[2018-05-01 20:34] LABS: Partial Thromboplast Time 30.2 Seconds (24.1-36.2); Prothrombin Time (Protime)PT. 13.1 SECONDS (11.7-14.9)
[2018-05-01] MEDS: Ipratropium/Albuterol Sulfate 3 ML AMPUL.NEB INHALATION (20:47)
[2018-05-01] MEDS: Albuterol 2.5 MG/3 ML VIAL.NEB. INHALATION ×2 (20:47)
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
[2018-05-01] MEDS: MethylPREDNISolone 125 MG/2 ML Vial IV (21:37)
[2018-05-01] MEDS: Aspirin 325 MG Tablet PO (21:40)
[2018-05-01] MEDS: 0.9% Normal Saline 1,000 ML 999 ML IV (22:23)
[2018-05-01 23:19] LABS: Reflex Lactate? Y
--- NOTE | 2018-05-01 23:39 | PCM.HP.STD ---
History of Present Illness Date of Admission: 05/02/18 Chief Complaint: shortness of breath The patient is a 78 year old M with past medical history as listed below including chronic respiratory failure due to COPD on 4 L of oxygen. Patient was admitted through the ED with a complaint of altered mental status and shortness of breath. Patient states he went with his to [place] was driving back home subsequently. The drive took about an hour he was on oxygen his oxygen throughout the drive. He states he had about 800 PSI left tennis oxygen tank. Oxygen tank usually contains about 2000 PSI which lasted about 2-2-1/2 hours. He states that he felt fine but 's told him that he subsequently started acting rationally immediately questioning to cats and his the garage door when he was driving to his garage. She therefore called the EMS. Patient states they suspect that his oxygen tank may have been emptied as the drive home was about an hour he does not think of oxygen left and it would have lasted him an hour. He also complained of hemoptysis and says this is been going on for about 6 weeks and he was following Dr. Velásquez has been worked up extensively including having a chest CT to detect PE. CT angiogram of the chest and March 13, 2018 was negative for any PE and VQ scan of the lungs in March was also negative for any PE. Chest x-ray done during this admission was negative for any acute cardiopulmonary problem. It showed pulmonary fibrosis or interstitial lung disease. Labs were significant for creatinine of 2.36 and troponin of 0.143. Lactic acid was mildly elevated at 2.4. VC showed hemoglobin of 11.8. Is been admitted to be managed for acute on chronic respiratory failure as he required up to 10 L of oxygen in the ED for saturation to be around 90%. [] Past Medical History Past Medical History (Chronic Problems): Chronic Problems (Last Reviewed 03/26/18 @ 06:59 by Camilla Villafuerte) Non-rheumatic tricuspid valve insufficiency (Chronic) Essential (primary) hypertension (Chronic) Secondary pulmonary arterial hypertension (Chronic) Stage 2 moderate COPD by GOLD classification (Chronic) Lung nodule < 6cm on CT (Chronic) Empyema (Chronic) Acute and chronic respiratory failure (Chronic) CKD (chronic kidney disease) stage 3, GFR 30-59 ml/min (Chronic) Chronic respiratory failure with hypoxia (Chronic) HLD (hyperlipidemia) (Chronic) Medical History: Medical History (Last Reviewed 03/26/18 @ 06:59 by Camilla Villafuerte) Non-rheumatic tricuspid valve insufficiency (Chronic) I36.1 Stenosis of right carotid artery (Resolved) I65.21 Essential (primary) hypertension (Chronic) I10 Secondary pulmonary arterial hypertension (Chronic) I27.21 Empyema (Chronic) J86.9 Acute and chronic respiratory failure (Chronic) J96.20 Pseudomonal pneumonia (Acute) J15.1 CKD (chronic kidney disease) stage 3, GFR 30-59 ml/min (Chronic) N18.3 Chronic respiratory failure with hypoxia (Chronic) J96.11 HLD (hyperlipidemia) (Chronic) E78.5 GERD (gastroesophageal reflux disease) K21.9 Gout M10.9 Bladder cancer C67.9 COPD (chronic obstructive pulmonary disease) (Inactive) J44.9 Allergies No Known Allergies Allergy (Verified 03/26/18 07:00) Home Medications: Ambulatory Orders Medication Instructions Recorded Allopurinol [Zyloprim] 200 mg PO DAILY 11/16/17 Aspirin [Aspirin, Baby] 81 mg PO QHS 11/16/17 Cyanocobalamin [Vitamin B12] 1,000 mcg PO DAILY@0800 11/16/17 Metoprolol Succinate 12.5 mg PO DAILY 11/16/17 Omeprazole 20 mg PO QHS 11/16/17 Tiotropium [place] [Spiriva] 1 puff INHALATION DAILY 11/16/17 hydrALAZINE [Apresoline] 50 mg PO BID 11/16/17 albuterol sulfate HFA 90 2 puff INHALATION Q4H PRN 12/12/17 mcg/actuation aerosol inhaler fluticasone 200 mcg-vilanterol 25 1 inh INHALATION DAILY #1 device 03/26/18 mcg/dose powder for inhalation Surgical History: Surgical History (Last Reviewed 03/26/18 @ 06:59 by Camilla Villafuerte) H/O adenoidectomy Z90.89 History of right-sided carotid endarterectomy Z98.890 History of transurethral resection of prostate Z98.890, Z90.79 Surgical History: adenoidectomy, TURP, - - Right carotid endarterectomy Psychiatric History: No pertinent psych hx Lives: Spouse/ Significant Other Smoking Status: Former smoker Alcohol: None Drugs: None - *Family History Maternal Family History: Family History (Last Reviewed 03/26/18 @ 06:59 by Camilla Villafuerte) Mother Cancer Brother Kidney disease Father Heart disease History Items: Cancer - Lung Paternal Family History: Family History (Last Reviewed 03/26/18 @ 06:59 by Camilla Villafuerte) Mother Cancer Brother Kidney disease Father Heart disease History Items: Heart Disease - Pacemaker Review of Systems Constitutional: Denies: Chills, Fever, Malaise, Weight Change HEENT: Denies: Head Aches, Sinus Congestion, Sinus Drainage Cardiovascular: Denies: Chest Pain, Heaviness, Light Headedness, Palpitations, Paroxysmal Noc. Dyspnea Respiratory: Reports: Shortness of Breath, Shortness of breath at rest, Shortness of breath upon exertion. Denies: Cough, Wheezing Gastrointestinal: Denies: Abdominal Pain, Nausea, Vomiting Genitourinary: Denies: Dysuria Musculoskeletal: Denies: Joint Pain, Joint Tenderness Skin: Denies: Rash, Wounds Neurological: Denies: Numbness, Tingling, Focal weakness Psychiatric: Denies: Anxiety, Depression, Homicidal Ideations, Suicidal Ideations Hematologic/ Lymphatic: Denies: Easy Bruising, Easy Bleeding VTE Information - Inpt Only VTE Present on Admission: No VTE Pharm Prophylaxis ordered?: No Reason prophylaxis not ordered:: Medical Contraindication - hemoptysis - Physical Exam General: Alert, Oriented x3, Cooperative, No apparent distress HEENT: Atraumatic, PERRLA, EOMI, Normocephalic Oral: Moist Mucosa Neck: Supple, No JVD, Negative Carotid Bruits Lungs: - - mild wheezing in all lung bermudez; no crackles Cardiovascular: Regular rate, Regular Rhythm, Normal S1, Normal S2, No murmurs Abdomen: Bowel Sounds Present, Soft, Non Tender, Non-Distended, No Hepato-splenomegaly Extremities: No clubbing, No cyanosis, No edema, Capillary Refill Less than 3 Seconds Skin: No rashes, No breakdown Musculoskeletal: No Tenderness to Palpation of Joints or Extremities Lymphatic: No Cervical, Supraclavicular, or Inguinal Adenopathy Neurological: Cranial nerves II-XII grossly intact Psych/Mental Status: Normal Affect, Appropriate, Alert and oriented to time, place, person, mood and affect Vital Signs Temp Pulse Resp BP Pulse Ox 98.0 F 91 17 134/61 H 93 12/19/18 23:00 05/01/18 23:00 05/01/18 23:00 05/01/18 23:00 05/01/18 23:00 Oxygen Flow Rate (L/min) 10 Oxygen Delivery Method Nasal Cannula Weight: 162 lb 7.691 oz Body Mass Index (BMI) 22.6 Microbiology Past 72 Hours 05/01/18 19:40 Influenza Types A,B Direct FA (SHERITA) - Final Mucosa - Nasopharyngeal Laboratory Tests Past 24 Hrs 05/01/18 05/01/18 05/01/18 19:14 19:14 19:14 WBC 6.9 RBC 3.16 L Hgb 11.8 L Hct 34.9 L MCV 110.4 H MCH 37.3 H MCHC 33.8 RDW 14.8 H RDW Differential 59.0 H Plt Count 143 L MPV 11.1 Immature Gran % (Auto) 0.100 Neut % (Auto) 68.7 Lymph % (Auto) 20.1 [place] % (Auto) 9.3 Eos % (Auto) 1.4 Baso % (Auto) 0.4 Absolute Neuts (auto) 4.7 Absolute Lymphs (auto) 1.39 Total Counted Not Reportable PT 13.1 INR 1.0 APTT 30.2 Specimen Type Sample Site pH Bicarbonate Actual POC Total CO2 Base Excess O2 Saturation ABG pCO2 ABG pO2 Humberto Test O2 Delivery Device Liter Flow Blood Gas Notified Whom Sodium 141 Potassium 4.7 Chloride 108 H Carbon Dioxide 22.0 Anion Gap 11 BUN 32 H Creatinine 2.36 H Estim Creat Clear Calc 26.33 Est GFR (MDRD) Af Amer 35 L Est GFR (MDRD) Non-Af 29 L BUN/Creatinine Ratio 13.6 Glucose 99 Lactic Acid Calcium 8.4 L Troponin I 0.143 H 05/01/18 05/01/1818 19:14 19:33 23:33 WBC RBC Hgb Hct MCV MCH MCHC RDW RDW Differential Plt Count MPV Immature Gran % (Auto) Neut % (Auto) Lymph % (Auto) [place] % (Auto) Eos % (Auto) Baso % (Auto) Absolute Neuts (auto) Absolute Lymphs (auto) Total Counted PT INR APTT Specimen Type ART Sample Site L Radial pH 7.34 L Bicarbonate Actual 19.5 L POC Total CO2 21 Base Excess -6 L O2 Saturation 95 ABG pCO2 36.1 ABG pO2 81 Humberto Test POS O2 Delivery Device NRB Mask Liter Flow 15.0 Blood Gas Notified Whom ED MD Sodium Potassium Chloride Carbon Dioxide Anion Gap BUN Creatinine Estim Creat Clear Calc Est GFR (MDRD) Af Amer Est GFR (MDRD) Non-Af BUN/Creatinine Ratio Glucose Lactic Acid 2.4 H Pending Calcium Troponin I Assessment/Plan All Active Problems (Last Reviewed 03/26/18 @ 06:59 by Camilla Villafuerte) MANISHA (obstructive sleep apnea) (Acute) Stenosis of right carotid artery (Resolved) Pseudomonal pneumonia (Acute) 78 y/o male presenting with a complaint of SOB of a few hours duration 1. Acute on chronic hypoxic respiratory failure etiology is unclear. Patient thinks he may have run out of oxygen in his tank denies any chest pain or productive cough admit to PCU witht elemetry was requiring 10L of oxygen to saturated at ~ 90% Had a CT angiogram about a month and a half ago which was negative for any PE and had a VQ scan about a month ago which was negative for PE as well. This likely may be due to worsening of his interstitial lung disease and pulmonary fibrosis. States has been following up with pulmonology. Will consult pulmonology. Continue oxygen to maintain saturation around 92% 2. COPD: as under 1. continue breathing treatments. Continue fluticasone Vilanterol and Spiriva. 3. Hemoptysis: Has been coughing up blood for quite a few weeks now. Has been following up with Dr. Velásquez and no clear etiology has been adduced. Has no clear risk factors for TB May benefit from bronchoscopy. Pulmonology consulted. 4. Pulmonary hypertension: RVSP per echo was 49mmHg. EF was 60% with mildly enlarged LA. Could be contributing to worsening SOB. PUlmo consulted 5. Gout: On allopurinol 6. Hypertension: On metoprolol. Prophylaxis: SCDs Code Status: Full code Patient counseled extensively about different types of CODE STATUS including full code, DNR CCA and DNR CCA. Patient elects to be full. Total [id number] time 17 minutes. Code Visit Inpatient E&M: 03326 Init Hosp L3 Procedures: 89780 Advncd Care Plan 30 Min
[2018-05-02] VITALS (19 sets, daily range): BP systolic 154–159; BP diastolic 56–74; PULSE 75–100; RESP 16–20; TEMP 36.4–36.9; O2SAT 91–98
[2018-05-02 00:16] LABS: Lactic Acid 2.1 mmol/L (0.4-2.0)
[2018-05-02] MEDS: 0.9% Normal Saline 1,000 ML 100 ML IV (01:46)
[2018-05-02] MEDS: 0.9% NaCl Peripheral Flush Adult/Peds IV ×2 (01:47→23:54)
[2018-05-02] MEDS: Ipratropium/Albuterol Sulfate 3 ML AMPUL.NEB INHALATION ×6 (02:38→23:46)
[2018-05-02 05:42] LABS: Absolute Lymphocyte Count 0.35 X10^3/ul (0.83-4.51); Absolute Neutrophil Count 3.8 X10^3/uL (2.0-7.7); Basophil# 0.01 X10^3/uL; Basophil% 0.2 % (0-1); Hematocrit 33.3 % (40-54); Hemoglobin 11.2 g/dl (13.0-16.5); Lymphocyte # 0.35 X10^3/ul (4.0); Lymphocyte % 8.3 % (19-41); Mean Corp Hgb Conc 33.6 g/gl (32-36); Mean Corpuscular Hgb 37.5 pg (27.0-32.0); Mean Corpuscular Volume 111.4 fL (80-94); Mean Platelet Vol. 11.6 fl (6.2-12.0); Monocyte# 0.04 X10^3/uL; Neutrophil # 3.78 X10^3/uL (2.7-7.7); Platelet Count 122 K/mm3 (150-450); RBC Distribution Width SD 55.3 fl (35.1-43.9); Red Blood Count 2.99 M/mm3 (4.6-6.2); White Blood Count 4.2 K/mm3 (4.4-11.0)
[2018-05-02 05:46] LABS: Differential Indicated SCAN CRITERIA MET; POSITIVE COUNT NO; POSITIVE DIFFERENTIAL YES; POSITIVE MORPHOLOGY NO
[2018-05-02 05:58] LABS: Anion Gap 11 (5-15); BUN 32 mg/dL (7-18); BUN/Creat Ratio 14.7 RATIO (10-20); Calcium,Total 7.9 mg/dL (8.5-10.1); Chloride 108 mmol/L (98-107); Creatinine, Serum 2.17 mg/dL (0.70-1.30); EST Glomerular Filtration Rate 32 mL/min (>60); Est Glom Filt Rate - Afr Amer 38 mL/min (>60); Estimated Creatinine Clearance 30.19 ml/min; Glucose 160 mg/dL (74-106); Potassium 5.2 mmol/L (3.5-5.1); Sodium Level 140 mmol/L (136-145)
[2018-05-02] MEDS: Budesonide Respules 0.5 MG/2 ML AMPUL.NEB. INHALATION (07:03)
--- NOTE | 2018-05-02 07:25 | PCM.CONS.GEN ---
Reason for Consult Date of Consultation: 05/02/18 Reason for Consultation: Respiratory failure/hemoptysis History of Present Illness: The patient is a 78-year-old male, with a history as outlined below, who presented to the emergency department on May 01 with complaints of worsening shortness of breath, hypoxia and blood streaked sputum. The patient currently follows with me in the pulmonary medicine clinic. I last saw him in mid March 2018. The patient has severe COPD and chronic hypoxemic respiratory failure. The patient is supposed to utilize 6 L/min of supplemental oxygen with exertion. However, he reports that he routinely only utilizes 4 L/min. He also utilizes 4 L/min while sleeping at night. The patient reports that when he was driving home last evening with his , that he began to feel funny. His stated that his driving became erratic and the patient actually ran into his garage door upon arrival home. The patient reports that he does recall that upon getting out of his car at home, he noticed that his supplemental oxygen had actually run out. The patient has a [id number] smoking history, but quit smoking completely in 2008. Pulmonary function testing completed in February 2018 revealed evidence of a severe large airways obstructive ventilatory defect with an associated reduction in diffusing capacity. A 6-minute walk test was also completed in February 2018, which revealed significant exertional oxygen desaturation despite being on 6 L/min of supplemental flow rate. A CTA chest completed March 13, 2018 revealed no evidence for pulmonary embolism. Bullous emphysematous changes were noted bilaterally, along with chronic interstitial changes. The patient did undergo a negative autoimmune/vasculitis workup in February as well. Surface echocardiogram completed in February 2018 revealed evidence of stage I diastolic dysfunction with a pulmonary artery systolic pressure estimated to be 49 mmHg. A split-night sleep study was also completed at the beginning of March, but no significant MANISHA was identified. However, the lack of supine sleep, may have underestimated the presence of potential sleep disordered breathing. The patient is currently on a maximal triple therapy inhaler regimen with Breo, Spiriva and as needed albuterol. Past Medical History Past Medical History (Chronic Problems): Chronic Problems (Last Reviewed 03/26/18 @ 06:59 by Camilla Villafuerte) Non-rheumatic tricuspid valve insufficiency (Chronic) Essential (primary) hypertension (Chronic) Secondary pulmonary arterial hypertension (Chronic) Stage 2 moderate COPD by GOLD classification (Chronic) Lung nodule < 6cm on CT (Chronic) Empyema (Chronic) Acute and chronic respiratory failure (Chronic) CKD (chronic kidney disease) stage 3, GFR 30-59 ml/min (Chronic) Chronic respiratory failure with hypoxia (Chronic) HLD (hyperlipidemia) (Chronic) Medical History: Medical History (Last Reviewed 03/26/18 @ 06:59 by Camilla Villafuerte) Non-rheumatic tricuspid valve insufficiency (Chronic) I36.1 Stenosis of right carotid artery (Resolved) I65.21 Essential (primary) hypertension (Chronic) I10 Secondary pulmonary arterial hypertension (Chronic) I27.21 Empyema (Chronic) J86.9 Acute and chronic respiratory failure (Chronic) J96.20 Pseudomonal pneumonia (Acute) J15.1 CKD (chronic kidney disease) stage 3, GFR 30-59 ml/min (Chronic) N18.3 Chronic respiratory failure with hypoxia (Chronic) J96.11 HLD (hyperlipidemia) (Chronic) E78.5 GERD (gastroesophageal reflux disease) K21.9 Gout M10.9 Bladder cancer C67.9 COPD (chronic obstructive pulmonary disease) (Inactive) J44.9 Allergies No Known Allergies Allergy (Verified 03/26/18 07:00) Home Medications: Ambulatory Orders Medication Instructions Recorded Allopurinol [Zyloprim] 200 mg PO DAILY 11/16/17 Aspirin [Aspirin, Baby] 81 mg PO QHS 11/16/17 Cyanocobalamin [Vitamin B12] 1,000 mcg PO DAILY@0800 11/16/17 Metoprolol Succinate 12.5 mg PO DAILY 11/16/17 Omeprazole 20 mg PO QHS 11/16/17 Tiotropium [place] [Spiriva] 1 puff INHALATION DAILY 11/16/17 hydrALAZINE [Apresoline] 50 mg PO BID 11/16/17 albuterol sulfate HFA 90 2 puff INHALATION Q4H PRN 12/12/17 mcg/actuation aerosol inhaler fluticasone 200 mcg-vilanterol 25 1 inh INHALATION DAILY #1 device 03/26/18 mcg/dose powder for inhalation Surgical History: Surgical History (Last Reviewed 03/26/18 @ 06:59 by Camilla Villafuerte) H/O adenoidectomy Z90.89 History of right-sided carotid endarterectomy Z98.890 History of transurethral resection of prostate Z98.890, Z90.79 Surgical History: adenoidectomy, TURP, - - Right carotid endarterectomy Psychiatric History: No pertinent psych hx Lives: Spouse/ Significant Other Smoking Status: Former smoker Alcohol: None Drugs: None - *Family History Maternal Family History: Family History (Last Reviewed 03/26/18 @ 06:59 by Camilla Villafuerte) Mother Cancer Brother Kidney disease Father Heart disease History Items: Cancer - Lung Paternal Family History: Family History (Last Reviewed 03/26/18 @ 06:59 by Camilla Villafuerte) Mother Cancer Brother Kidney disease Father Heart disease History Items: Heart Disease - Pacemaker Review of Systems Constitutional: Denies: Chills, Fever Eyes: Denies: Blurred vision, Double vision HEENT: Denies: Head Aches, Sinus Congestion, Sinus Drainage Cardiovascular: Denies: Chest Pain, Palpitations Respiratory: Reports: Cough, Shortness of Breath Gastrointestinal: Denies: Abdominal Pain, Nausea, Vomiting Genitourinary: Denies: Dysuria Musculoskeletal: Denies: Joint Pain, Joint Tenderness Skin: Denies: Rash, Wounds Neurological: Denies: Numbness, Tingling, Focal weakness Psychiatric: Denies: Anxiety, Depression, Homicidal Ideations, Suicidal Ideations Hematologic/ Lymphatic: Denies: Easy Bruising, Easy Bleeding Objective: The patient's most recent lab work, culture data and imaging studies have all been personally reviewed. - Physical Exam General: Alert, Oriented x3, Cooperative, No apparent distress HEENT: Atraumatic, PERRLA, Normocephalic Oral: No Gingival or Mucosal Lesions/ Ulcerations Neck: Supple, No Nodes, Trachea Midline Lungs: No rhonchi, No wheeze, No rales, Diminished Cardiovascular: Regular rate, Regular Rhythm, Normal S1, Normal S2, No murmurs Abdomen: Bowel Sounds Present, Soft, Non Tender Extremities: No clubbing, No cyanosis, No edema Skin: No breakdown Musculoskeletal: No Tenderness to Palpation of Joints or Extremities Lymphatic: No Cervical, Supraclavicular, or Inguinal Adenopathy Neurological: Cranial nerves II-XII grossly intact, Neuro grossly intact Psych/Mental Status: Alert and oriented to time, place, person, mood and affect Vital Signs Temp Pulse Resp BP Pulse Ox 36.4 C L 78 18 156/67 H 98 05/02/18 06:00 05/02/18 06:00 05/02/18 06:00 05/02/18 06:00 05/02/18 06:00 Oxygen Flow Rate (L/min) 10 Oxygen Delivery Method Nasal Cannula Weight: 162 lb 7.691 oz Body Mass Index (BMI) 22.6 Intake and Output for Last 24 Hours 04/30/18 05/01/18 05/02/18 23:59 23:59 23:59 Intake Total 568 / 568 Balance 568 / 568 Microbiology Past 72 Hours 05/01/18 19:40 Influenza Types A,B Direct FA (SHERITA) - Final Mucosa - Nasopharyngeal Laboratory Tests Past 24 Hrs 05/01/18 05/01/18 05/01/18 19:14 19:14 19:14 WBC 6.9 RBC 3.16 L Hgb 11.8 L Hct 34.9 L MCV 110.4 H MCH 37.3 H MCHC 33.8 RDW 14.8 H RDW Differential 59.0 H Plt Count 143 L MPV 11.1 Immature Gran % (Auto) 0.100 Neut % (Auto) 68.7 Lymph % (Auto) 20.1 [place] % (Auto) 9.3 Eos % (Auto) 1.4 Baso % (Auto) 0.4 Absolute Neuts (auto) 4.7 Absolute Lymphs (auto) 1.39 Total Counted Not Reportable PT 13.1 INR 1.0 APTT 30.2 Specimen Type Sample Site pH Bicarbonate Actual POC Total CO2 Base Excess O2 Saturation ABG pCO2 ABG pO2 Humberto Test O2 Delivery Device Liter Flow Blood Gas Notified Whom Sodium 141 Potassium 4.7 Chloride 108 H Carbon Dioxide 22.0 Anion Gap 11 BUN 32 H Creatinine 2.36 H Estim Creat Clear Calc 26.33 Est GFR (MDRD) Af Amer 35 L Est GFR (MDRD) Non-Af 29 L BUN/Creatinine Ratio 13.6 Glucose 99 Lactic Acid Calcium 8.4 L Troponin I 0.143 H 05/01/18 05/01/18 05/01/18 19:14 19:33 23:33 WBC RBC Hgb Hct MCV MCH MCHC RDW RDW Differential Plt Count MPV Immature Gran % (Auto) Neut % (Auto) Lymph % (Auto) [place] % (Auto) Eos % (Auto) Baso % (Auto) Absolute Neuts (auto) Absolute Lymphs (auto) Total Counted PT INR APTT Specimen Type ART Sample Site L Radial pH 7.34 L Bicarbonate Actual 19.5 L POC Total CO2 21 Base Excess -6 L O2 Saturation 95 ABG pCO2 36.1 ABG pO2 81 Humberto Test POS O2 Delivery Device NRB Mask Liter Flow 15.0 Blood Gas Notified Whom ED Sodium Potassium Chloride Carbon Dioxide Anion Gap BUN Creatinine Estim Creat Clear Calc Est GFR (MDRD) Af Amer Est GFR (MDRD) Non-Af BUN/Creatinine Ratio Glucose Lactic Acid 2.4 H 2.1 H Calcium Troponin I 05/02/18 05/02/18 05/02/18 02:05 04:54 04:54 WBC 4.2 L RBC 2.99 L Hgb 11.2 L Hct 33.3 L MCV 111.4 H MCH 37.5 H MCHC 33.6 RDW 14.0 RDW Differential 55.3 H Plt Count 122 L MPV 11.6 Immature Gran % (Auto) 0.500 Neut % (Auto) 90.0 H Lymph % (Auto) 8.3 L [place] % (Auto) 1.0 Eos % (Auto) 0.0 Baso % (Auto) 0.2 Absolute Neuts (auto) 3.8 Absolute Lymphs (auto) 0.35 L Total Counted Not Reportable PT INR APTT Specimen Type Sample Site pH Bicarbonate Actual POC Total CO2 Base Excess O2 Saturation ABG pCO2 ABG pO2 Humberto Test O2 Delivery Device Liter Flow Blood Gas Notified Whom Sodium 140 Potassium 5.2 H Chloride 108 H Carbon Dioxide 21.0 Anion Gap 11 BUN 32 H Creatinine 2.17 H Estim Creat Clear Calc 30.19 Est GFR (MDRD) Af Amer 38 L Est GFR (MDRD) Non-Af 32 L BUN/Creatinine Ratio 14.7 Glucose 160 H Lactic Acid Calcium 7.9 L Troponin I 0.099 H 05/02/18 04:54 WBC RBC Hgb Hct MCV MCH MCHC RDW RDW Differential Plt Count MPV Immature Gran % (Auto) Neut % (Auto) Lymph % (Auto) [place] % (Auto) Eos % (Auto) Baso % (Auto) Absolute Neuts (auto) Absolute Lymphs (auto) Total Counted PT INR APTT Specimen Type Sample Site pH Bicarbonate Actual POC Total CO2 Base Excess O2 Saturation ABG pCO2 ABG pO2 Humberto Test O2 Delivery Device Liter Flow Blood Gas Notified Whom Sodium Potassium Chloride Carbon Dioxide Anion Gap BUN Creatinine Estim Creat Clear Calc Est GFR (MDRD) Af Amer Est GFR (MDRD) Non-Af BUN/Creatinine Ratio Glucose Lactic Acid Calcium Troponin I 0.069 H Clinical Impression(s) from Imaging Studies Chest X-Ray 05/01/18 19:30 IMPRESSION: Pulmonary fibrosis or interstitial lung disease unchanged Electronically Signed: Roverto Varner MD at 20:11 EST , Service support , Assessment/Plan All Active Problems (Last Reviewed 03/26/18 @ 06:59 by Camilla Villafuerte) MANISHA (obstructive sleep apnea) (Acute) Stenosis of right carotid artery (Resolved) Pseudomonal pneumonia (Acute) RECOMMENDATIONS: 1. Obtain repeat chest CT 2. Continue scheduled bronchodilators and start IV Solu-Medrol 40 mg every 6 hours. 3. Check respiratory viral panel. 4. Wean supplemental oxygen as tolerated to maintain oxygen saturations at or above 88%. 5. The patient may benefit from home trilogy support. 6. I also feel that the patient would benefit from a palliative care referral. IMPRESSIONS: 1. Acute on chronic hypoxemic respiratory failure with baseline severe COPD/underlying pulmonary hypertension The patient presented to the emergency department with acute on chronic hypoxemic respiratory failure, after his called EMS due to erratic driving and behavior upon their return home last evening. The patient readily admitted to me that upon getting out of his vehicle he realized that he had ran out of supplemental oxygen. Therefore, it is most plausible, that the patients behavior and erratic driving was likely the consequence of severe hypoxemia. His chest imaging does not reveal findings concerning for an acute pulmonary infectious process. I would recommend obtaining a repeat CT chest at this time, however. In the interim, we will plan to continue scheduled aerosol treatments and start steroids. Given the severity of his COPD, the patient may benefit from home trilogy initiation. I also feel that he would be an appropriate candidate for a referral to palliative care to assist with additional symptom relief. 2. Self-limited hemoptysis The patient does report that shortly after Thanksgiving he began to experienced episodes of blood-streaked sputum. He never called our pulmonary office and made an appointment to be seen. At this time, the patient may have been experiencing an underlying pulmonary infection that is resolving. He does not report further hemoptysis at this time. 3. Troponin elevation Likely secondary to demand ischemia in the setting of hypoxemia. This note was generated with [employer] dictation software. It may contain incorrect words, spelling, and punctuation that were not noted in checking the note before signing. Code Visit Inpatient E&M: 59663 Init Hosp L3
[2018-05-02] MEDS: Allopurinol 100 MG Tablet 200 MG PO (09:50)
[2018-05-02] MEDS: Cyanocobalamin 500 MCG Tablet 1000 MCG PO (09:50)
[2018-05-02] MEDS: hydrALAZINE 50 MG Tablet PO ×2 (09:51→22:09)
[2018-05-02] MEDS: Metoprolol(XL)Succ 25 MG Tablet 12.5 MG PO (09:53)
--- NOTE | 2018-05-02 11:03 | CT_ITS ---
STUDY: CT CHEST WITHOUT CONTRAST REASON FOR EXAM: Male, 78 years old. Cough. Interstitial lung disease. Bladder cancer RADIATION DOSAGE (If Supplied By Facility): CTDIvol = ( 10.24 ) mGy, DLP = ( 392.60 ) mGycm TECHNIQUE: Transaxial imaging was performed without the administration of intravenous contrast material. Multiplanar coronal and sagittal images were reformatted. Individualized dose optimization techniques were used for this CT. COMPARISON: Chest x-ray May 01, 2018. CT March 13, 2018. FINDINGS: There is emphysema of the lungs. There are moderate interstitial septal and ground glass increased opacities of the lungs. There are regions of bronchiectasis in the mid and lower chest. There is right midlung granuloma. There is small right pleural effusion with thickening of the fissure. There are calcifications of the coronary arteries. There are valvular calcifications. There are mediastinal lymph nodes at the anterior mediastinum and AP window measuring 1.5 cm. There are lower paratracheal lymph nodes measuring 1.5 cm. There calcified right hilar lymph nodes. Normal unenhanced pulmonary arteries. There is atherosclerotic calcification of the aortic arch with tortuosity and elongation of the aortic arch and descending thoracic aorta. Normal osseous structures. There is atrophy of the right kidney with cortical thinning and focal calcification. CT/Chest without Contrast IMPRESSION: Emphysema and fibrotic densities. Old granulomatous disease. Atherosclerosis. Atrophic right kidney Electronically Signed: Pietro Roe MD at 12:12 EST , Service support ,
--- NOTE | 2018-05-02 13:53 | CASEMGMT ---
ELISABET WOODRUFF assessment: Face to Face with patient for initial transition planning/care coordination assessment. RN RANJAN introduced self and role at [facility], pt voices understanding and consents to assessment at this time. Pt is sitting up in bed in no distress at this time. Pt is A/Ox4 at this time and answers all questions appropriately at this time. Care providers, pharmacy, and demographics verified at this time. PCP: Kira Specialists: Didier puldarnell; Tino, cardio; Vilma nephro Preferred Pharmacy: [facility] Insurance: [facility] A/B, [place] Prescription Benefit: [employer] Living Will/HPOA: Pt states has LW/HPOA but they are not currently on file at [facility] at this time. Pt states , Mayra Wang, is HPOA. Pt states him and his just moved to area. LNOK: Mayra Wang, Living Arrangements: Pt states lives with in 2nd floor apt and also has a flight of stairs in apt and states no concerns at home at this time. Transportation: Pt states drives self and states no transportation concerns normally but is concerned about getting home as he came via EMS and does not drives. Pt wonders if he can call a cab and this RN CM advised that he can but he will need a tank of his oxygen to get home and he states 'how am i supposed to get that?' This RN CM asked pt if his is visiting him at all in hospital and he states she is coming today. Advised pt that she should probably bring a tank when she comes today, voices understanding. Pt is also asking about [facility] van transport and advised him that they are only available certain hours, voices understanding. Pt states that they do have family to transport but they live farther away. DME/HHC: Pt states has walker but does not use and also has grab bars, tub bench, and is on 4liters home oxygen thru [facility]. Pt states no concerns with home oxygen supply. Pt states no hx of HHC or SNF in the past. Pt states no concerns with going home at time of discharge. Pt states is retired. Pt states quit smoking 9 years ago and drinks 1-2 ETOH drinks daily. Pt states no further concerns/needs at this time. CM to follow for any further discharge planning/needs. Advised pt to ask for CM if any further questions/concerns/needs arise, voices understanding. Plan: Home SStbeth RN CM
--- NOTE | 2018-05-02 14:57 | PCM.PROGNOTE ---
Subjective: Patient seen and examined. States shortness of breath is improved at rest. Continues to have significant dyspnea with minimal exertion. Denies further hemoptysis since admission. Patient states he has chronic productive cough, worse in the morning. Denies fever, chills. - Physical Exam General: Alert, Oriented x3, Cooperative HEENT: Atraumatic, PERRLA, EOMI, Normocephalic Neck: Supple, No JVD, Negative Carotid Bruits Lungs: Diminished, Wheezes Cardiovascular: Regular rate, Regular Rhythm, Normal S1, Normal S2, No murmurs Abdomen: Bowel Sounds Present, Soft, Non Tender, Non-Distended Extremities: No clubbing, No cyanosis, No edema, Capillary Refill Less than 3 Seconds Skin: No rashes, No breakdown Musculoskeletal: No Tenderness to Palpation of Joints or Extremities Neurological: Cranial nerves II-XII grossly intact, Neuro grossly intact Psych/Mental Status: Normal Affect, Appropriate Vital Signs Temp Pulse Resp BP Pulse Ox 97.6 F L 90 18 159/70 H 97 05/02/18 09:50 05/02/18 11:06 05/02/18 09:50 05/02/18 09:53 05/02/18 09:50 Oxygen Flow Rate (L/min) 10 Oxygen Delivery Method Nasal Cannula Weight: 162 lb 7.691 oz Body Mass Index (BMI) 22.6 Intake and Output for Last 24 Hours 04/30/18 05/01/18 05/02/18 23:59 23:59 23:59 Intake Total 2087 Balance 2087 Microbiology Past 72 Hours 05/01/18 19:40 Influenza Types A,B Direct FA (SHERITA) - Final Mucosa - Nasopharyngeal Laboratory Tests Past 24 Hrs 05/01/18 05/01/18 05/01/18 19:14 19:14 19:14 WBC 6.9 RBC 3.16 L Hgb 11.8 L Hct 34.9 L MCV 110.4 H MCH 37.3 H MCHC 33.8 RDW 14.8 H RDW Differential 59.0 H Plt Count 143 L MPV 11.1 Immature Gran % (Auto) 0.100 Neut % (Auto) 68.7 Lymph % (Auto) 20.1 [place] % (Auto) 9.3 Eos % (Auto) 1.4 Baso % (Auto) 0.4 Absolute Neuts (auto) 4.7 Absolute Lymphs (auto) 1.39 Total Counted Not Reportable PT 13.1 INR 1.0 APTT 30.2 Specimen Type Sample Site pH Bicarbonate Actual POC Total CO2 Base Excess O2 Saturation ABG pCO2 ABG pO2 Humberto Test O2 Delivery Device Liter Flow Blood Gas Notified Whom Sodium 141 Potassium 4.7 Chloride 108 H Carbon Dioxide 22.0 Anion Gap 11 BUN 32 H Creatinine 2.36 H Estim Creat Clear Calc 26.33 Est GFR (MDRD) Af Amer 35 L Est GFR (MDRD) Non-Af 29 L BUN/Creatinine Ratio 13.6 Glucose 99 Lactic Acid Calcium 8.4 L Troponin I 0.143 H 05/01/18 05/01/18 05/01/18 19:14 19:33 23:33 WBC RBC Hgb Hct MCV MCH MCHC RDW RDW Differential Plt Count MPV Immature Gran % (Auto) Neut % (Auto) Lymph % (Auto) [place] % (Auto) Eos % (Auto) Baso % (Auto) Absolute Neuts (auto) Absolute Lymphs (auto) Total Counted PT INR APTT Specimen Type ART Sample Site L Radial pH 7.34 L Bicarbonate Actual 19.5 L POC Total CO2 21 Base Excess -6 L O2 Saturation 95 ABG pCO2 36.1 ABG pO2 81 Humberto Test POS O2 Delivery Device NRB Mask Liter Flow 15.0 Blood Gas Notified Whom ED MD Sodium Potassium Chloride Carbon Dioxide Anion Gap BUN Creatinine Estim Creat Clear Calc Est GFR (MDRD) Af Amer Est GFR (MDRD) Non-Af BUN/Creatinine Ratio Glucose Lactic Acid 2.4 H 2.1 H Calcium Troponin I 05/02/18 05/02/18 05/02/18 02:05 04:54 04:54 WBC 4.2 L RBC 2.99 L Hgb 11.2 L Hct 33.3 L MCV 111.4 H MCH 37.5 H MCHC 33.6 RDW 14.0 RDW Differential 55.3 H Plt Count 122 L MPV 11.6 Immature Gran % (Auto) 0.500 Neut % (Auto) 90.0 H Lymph % (Auto) 8.3 L [place] % (Auto) 1.0 Eos % (Auto) 0.0 Baso % (Auto) 0.2 Absolute Neuts (auto) 3.8 Absolute Lymphs (auto) 0.35 L Total Counted Not Reportable PT INR APTT Specimen Type Sample Site pH Bicarbonate Actual POC Total CO2 Base Excess O2 Saturation ABG pCO2 ABG pO2 Humberto Test O2 Delivery Device Liter Flow Blood Gas Notified Whom Sodium 140 Potassium 5.2 H Chloride 108 H Carbon Dioxide 21.0 Anion Gap 11 BUN 32 H Creatinine 2.17 H Estim Creat Clear Calc 30.19 Est GFR (MDRD) Af Amer 38 L Est GFR (MDRD) Non-Af 32 L BUN/Creatinine Ratio 14.7 Glucose 160 H Lactic Acid Calcium 7.9 L Troponin I 0.099 H 05/02/18 05/02/18 04:54 07:54 WBC RBC Hgb Hct MCV MCH MCHC RDW RDW Differential Plt Count MPV Immature Gran % (Auto) Neut % (Auto) Lymph % (Auto) [place] % (Auto) Eos % (Auto) Baso % (Auto) Absolute Neuts (auto) Absolute Lymphs (auto) Total Counted PT INR APTT Specimen Type Sample Site pH Bicarbonate Actual POC Total CO2 Base Excess O2 Saturation ABG pCO2 ABG pO2 Humberto Test O2 Delivery Device Liter Flow Blood Gas Notified Whom Sodium Potassium Chloride Carbon Dioxide Anion Gap BUN Creatinine Estim Creat Clear Calc Est GFR (MDRD) Af Amer Est GFR (MDRD) Non-Af BUN/Creatinine Ratio Glucose Lactic Acid Calcium Troponin I 0.069 H 0.061 H Medical Necessity - Tobacco Use Smoking Status: Former smoker Assessment/Plan All Active Problems (Last Reviewed 03/26/18 @ 06:59 by Camilla Villafuerte) MANISHA (obstructive sleep apnea) (Acute) Stenosis of right carotid artery (Resolved) Pseudomonal pneumonia (Acute) 1. Acute on chronic hypoxic respiratory failure secondary to severe chronic COPD/pulmonary hypertension-patient was reported to have run out of his oxygen with documented hypoxia on admission. Pulmonary medicine following. Patient follows with Dr. Velásquez. Recommending trilogy at discharge given severe COPD. CT of chest shows emphysema and fibrotic densities, old granulomatous disease. Continue albuterol and DuoNeb aerosols. Continue IV Solu-Medrol. Continue supplement oxygen to maintain O2 at or above 90%. Patient chronically wears 4 L nasal cannula continuously. Pulmonary recommending palliative referral for further symptom control. 2. Hemoptysis- resolved. Continue to monitor. Pulmonary following. 3. Elevated troponin-suspect demand ischemia as a result of #1. Troponin trended downward. EKG without ST-T changes. Patient denies chest pain. 4. Lactic acidosis-suspect reactive as a result of #1. Repeat lactic acid improved. 5. Hyperkalemia- mild, trend BMP. 6. Hypertension-stable, continue metoprolol, hydralazine. 7. GERD-continue PPI. 8. Gout-continue allopurinol. 9. Chronic macrocytic anemia- stable. Check b12, folate. 10. 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 Trend BMP. DVT prophylaxis-pharmacologic prophylaxis on hold given recent hemoptysis. SCDs. This patient was seen by YONI Robert under the supervision of Dr. Arellano.
[2018-05-02 20:06] LABS: Vitamin B12 1091 pg/mL (211-911)
[2018-05-02] MEDS: Pantoprazole Sodium 20 MG Tablet PO (22:09)
[2018-05-03] VITALS (12 sets, daily range): BP systolic 149–167; BP diastolic 65–67; PULSE 83–99; RESP 18–20; TEMP 36.4–36.8; O2SAT 91–95
[2018-05-03] MEDS: Ipratropium/Albuterol Sulfate 3 ML AMPUL.NEB INHALATION ×3 (03:33→10:23)
[2018-05-03] MEDS: 0.9% NaCl Peripheral Flush Adult/Peds IV ×2 (06:00→11:47)
[2018-05-03 07:30] LABS: Mean Corp Hgb Conc 34.4 g/gl (32-36); Mean Corpuscular Hgb 37.8 pg (27.0-32.0); Mean Platelet Vol. 11.9 fl (6.2-12.0); Platelet Count 127 K/mm3 (150-450); RBC Distribution Width CV 14.8 % (11.6-14.6); RBC Distribution Width SD 59.1 fl (35.1-43.9); Red Blood Count 2.91 M/mm3 (4.6-6.2); White Blood Count 10.5 K/mm3 (4.4-11.0)
[2018-05-03 07:32] LABS: Scan Indicated on CBC? Y/N NO
[2018-05-03 07:50] LABS: Anion Gap 12 (5-15); BUN 43 mg/dL (7-18); BUN/Creat Ratio 22.2 RATIO (10-20); Calcium,Total 8.2 mg/dL (8.5-10.1); Chloride 108 mmol/L (98-107); Creatinine, Serum 1.94 mg/dL (0.70-1.30); EST Glomerular Filtration Rate 36 mL/min (>60); Est Glom Filt Rate - Afr Amer 44 mL/min (>60); Estimated Creatinine Clearance 33.77 ml/min; Glucose 178 mg/dL (74-106); Potassium 4.6 mmol/L (3.5-5.1); Sodium Level 138 mmol/L (136-145)
[2018-05-03] MEDS: Cyanocobalamin 500 MCG Tablet 1000 MCG PO (08:06)
[2018-05-03] MEDS: hydrALAZINE 50 MG Tablet PO (08:06)
[2018-05-03] MEDS: Metoprolol(XL)Succ 25 MG Tablet 12.5 MG PO (08:07)
[2018-05-03] MEDS: Allopurinol 100 MG Tablet 200 MG PO (08:07)
--- NOTE | 2018-05-03 11:11 | CASEMGMT ---
Patient agreed to Palliative Care. SW spoke with patient and told him that SW will fax a referral and they will follow up with him to schedule an appt to meet. SW called Palliative Care and made referral to [facility] and also faxed information. Plan: Home with Palliative Care referral Elaine DONAHUE MSW
--- NOTE | 2018-05-03 11:19 | PCM.PROGNOTE ---
Subjective: The patient was seen and examined at the bedside this morning. Events from the last 24 hours have been reviewed. The patient is currently afebrile, hemodynamically stable and maintaining appropriate oxygen saturations on 6 L/min via nasal cannula. The patient does feel that his breathing quality is at his baseline and he is anxious to go home. He is agreeable to referral to palliative care. I did move his follow-up appointment with me in the pulmonary medicine clinic to May 20 at 12:15 PM. Objective: The patient's most recent lab work, culture data and imaging studies have all been personally reviewed. Respiratory viral panel was negative. - Physical Exam General: Alert, Oriented x3, Cooperative, No apparent distress HEENT: Atraumatic, PERRLA, Normocephalic Oral: No Gingival or Mucosal Lesions/ Ulcerations Neck: Supple, No Nodes, Trachea Midline Lungs: - - Globally diminished air movement throughout all lung bermudez. No conversational dyspnea. No accessory muscle use. Cardiovascular: Regular rate, Regular Rhythm, Normal S1, Normal S2, No murmurs Abdomen: Bowel Sounds Present, Soft, Non Tender Extremities: No clubbing, No cyanosis, No edema Skin: No breakdown Musculoskeletal: No Tenderness to Palpation of Joints or Extremities, No Muscle Wasting Lymphatic: No Cervical, Supraclavicular, or Inguinal Adenopathy Neurological: Cranial nerves II-XII grossly intact, Neuro grossly intact Psych/Mental Status: Alert and oriented to time, place, person, mood and affect Vital Signs Temp Pulse Resp BP Pulse Ox 36.4 C L 99 18 167/67 H 91 05/03/18 09:50 05/03/18 10:57 05/03/18 10:30 05/03/18 09:50 05/03/18 10:58 Oxygen Flow Rate (L/min) 6 Oxygen Delivery Method Nasal Cannula Weight: 162 lb 7.691 oz Body Mass Index (BMI) 22.6 Intake and Output for Last 24 Hours 05/01/18 05/02/18 05/03/18 23:59 23:59 23:59 Intake Total 3448 / 3448 Balance 3448 / 3448 Microbiology Past 72 Hours 05/02/18 08:12 Respiratory Panel (PCR) - Final Mucosa - Nasopharyngeal 05/01/18 19:40 Influenza Types A,B Direct FA (SHERITA) - Final Mucosa - Nasopharyngeal Laboratory Tests Past 24 Hrs 05/02/18 05/02/18 05/03/18 19:20 19:20 06:57 WBC 10.5 RBC 2.91 L Hgb 11.0 L Hct 32.0 L MCV 110.0 H MCH 37.8 H MCHC 34.4 RDW 14.8 H RDW Differential 59.1 H Plt Count 127 L MPV 11.9 Sodium Potassium Chloride Carbon Dioxide Anion Gap BUN Creatinine Estim Creat Clear Calc Est GFR (MDRD) Af Amer Est GFR (MDRD) Non-Af BUN/Creatinine Ratio Glucose Calcium Vitamin B12 1091 H Folate 23.60 05/03/18 06:57 WBC RBC Hgb Hct MCV MCH MCHC RDW RDW Differential Plt Count MPV Sodium 138 Potassium 4.6 Chloride 108 H Carbon Dioxide 18.0 L Anion Gap 12 BUN 43 H Creatinine 1.94 H Estim Creat Clear Calc 33.77 Est GFR (MDRD) Af Amer 44 L Est GFR (MDRD) Non-Af 36 L BUN/Creatinine Ratio 22.2 H Glucose 178 H Calcium 8.2 L Vitamin B12 Folate Clinical Impression(s) from Imaging Studies Chest X-Ray 05/01/18 19:30 IMPRESSION: Pulmonary fibrosis or interstitial lung disease unchanged Electronically Signed: Roverto Varner MD at 20:11 EST , Service support , Chest CT 05/02/18 11:03 IMPRESSION: Emphysema and fibrotic densities. Old granulomatous disease. Atherosclerosis. Atrophic right kidney Electronically Signed: Pietro Roe MD at 12:12 EST , Service support , Medical Necessity - Tobacco Use Smoking Status: Former smoker Assessment/Plan All Active Problems (Last Reviewed 03/26/18 @ 06:59 by Camilla Villafuerte) MANISHA (obstructive sleep apnea) (Acute) Stenosis of right carotid artery (Resolved) Pseudomonal pneumonia (Acute) RECOMMENDATIONS: 1. Continue scheduled bronchodilators. 2. Transition from IV steroids to prednisone 40 mg daily by mouth, with plans for a 5-day burst at discharge. 3. The patient should utilize 6 L/min of continuous flow supplemental oxygen at all times. 4. Place palliative care referral for follow-up after discharge. 5. We will discuss potential trilogy initiation at his follow-up office visit. 6. The patient has been scheduled to follow-up with me in the pulmonary medicine clinic on May 20 at 1215. IMPRESSIONS: 1. Acute on chronic hypoxemic respiratory failure with baseline severe COPD/underlying pulmonary hypertension The patient presented to the emergency department with acute on chronic hypoxemic respiratory failure, after his called EMS due to erratic driving and behavior upon their return home last evening. The patient readily admitted to me that upon getting out of his vehicle he realized that he had ran out of supplemental oxygen. Therefore, it is most plausible, that the patients behavior and erratic driving was likely the consequence of severe hypoxemia. His chest imaging does not reveal findings concerning for an acute pulmonary infectious process. The patient's chest CT only revealed chronic interstitial changes and emphysema bilaterally. He does feel that he has returned to his baseline breathing quality. Based upon the patient's last 6-minute walk test and his current supplemental oxygen need, would recommend that the patient be maintained on 6 L/min of continuous flow supplemental oxygen at all times. Please place a referral to palliative care so that the patient can follow-up once discharged from the hospital. I will discuss potential trilogy initiation at his follow-up office visit with me. 2. Self-limited hemoptysis The patient does report that shortly after Thanksgiving he began to experienced episodes of blood-streaked sputum. He never called our pulmonary office and made an appointment to be seen. At this time, the patient may have been experiencing an underlying pulmonary infection that is resolving. He does not report further hemoptysis at this time. 3. Troponin elevation Likely secondary to demand ischemia in the setting of hypoxemia. This note was generated with [employer] software. It may contain incorrect words, spelling, and punctuation that were not noted in checking the note before signing. Code Visit Inpatient E&M: 77244 Subs Hosp L2
--- NOTE | 2018-05-03 11:24 | PN_ITS ---
Subjective: The patient was seen and examined at the bedside this morning. Events from the last 24 hours have been reviewed. The patient is currently afebrile, hemodynamically stable and maintaining appropriate oxygen saturations on 6 L/min via nasal cannula. The patient does feel that his breathing quality is at his baseline and he is anxious to go home. He is agreeable to referral to palliative care. I did move his follow-up appointment with me in the pulmonary medicine clinic to May 20 at 12:15 PM. Objective: The patient's most recent lab work, culture data and imaging studies have all been personally reviewed. Respiratory viral panel was negative. - Physical Exam General: Alert, Oriented x3, Cooperative, No apparent distress HEENT: Atraumatic, PERRLA, Normocephalic Oral: No Gingival or Mucosal Lesions/ Ulcerations Neck: Supple, No Nodes, Trachea Midline Lungs: - - Globally diminished air movement throughout all lung bermudez. No conversational dyspnea. No accessory muscle use. Cardiovascular: Regular rate, Regular Rhythm, Normal S1, Normal S2, No murmurs Abdomen: Bowel Sounds Present, Soft, Non Tender Extremities: No clubbing, No cyanosis, No edema Skin: No breakdown Musculoskeletal: No Tenderness to Palpation of Joints or Extremities, No Muscle Wasting Lymphatic: No Cervical, Supraclavicular, or Inguinal Adenopathy Neurological: Cranial nerves II-XII grossly intact, Neuro grossly intact Psych/Mental Status: Alert and oriented to time, place, person, mood and affect Vital Signs Temp Pulse Resp BP Pulse Ox 36.4 C L 99 18 167/67 H 91 05/03/18 09:50 05/03/18 10:57 05/03/18 10:30 05/03/18 09:50 05/03/18 10:58 Oxygen Flow Rate (L/min) 6 Oxygen Delivery Method Nasal Cannula Weight: 162 lb 7.691 oz Body Mass Index (BMI) 22.6 Intake and Output for Last 24 Hours 05/01/18 05/02/18 05/03/18 23:59 23:59 23:59 Intake Total 3448 / 3448 Balance 3448 / 3448 Microbiology Past 72 Hours 05/02/18 08:12 Respiratory Panel (PCR) - Final Mucosa - Nasopharyngeal 05/01/18 19:40 Influenza Types A,B Direct FA (SHERITA) - Final Mucosa - Nasopharyngeal Laboratory Tests Past 24 Hrs 05/02/18 05/02/18 05/03/18 19:20 19:20 06:57 WBC 10.5 RBC 2.91 L Hgb 11.0 L Hct 32.0 L MCV 110.0 H MCH 37.8 H MCHC 34.4 RDW 14.8 H RDW Differential 59.1 H Plt Count 127 L MPV 11.9 Sodium Potassium Chloride Carbon Dioxide Anion Gap BUN Creatinine Estim Creat Clear Calc Est GFR (MDRD) Af Amer Est GFR (MDRD) Non-Af BUN/Creatinine Ratio Glucose Calcium Vitamin B12 1091 H Folate 23.60 05/03/18 06:57 WBC RBC Hgb Hct MCV MCH MCHC RDW RDW Differential Plt Count MPV Sodium 138 Potassium 4.6 Chloride 108 H Carbon Dioxide 18.0 L Anion Gap 12 BUN 43 H Creatinine 1.94 H Estim Creat Clear Calc 33.77 Est GFR (MDRD) Af Amer 44 L Est GFR (MDRD) Non-Af 36 L BUN/Creatinine Ratio 22.2 H Glucose 178 H Calcium 8.2 L Vitamin B12 Folate Clinical Impression(s) from Imaging Studies Chest X-Ray 05/01/18 19:30 IMPRESSION: Pulmonary fibrosis or interstitial lung disease unchanged Electronically Signed: Roverto Varner MD at 20:11 EST , Service support , Chest CT 05/02/18 11:03 IMPRESSION: Emphysema and fibrotic densities. Old granulomatous disease. Atherosclerosis. Atrophic right kidney Electronically Signed: Pietro Roe MD at 12:12 EST , Service support , Medical Necessity - Tobacco Use Smoking Status: Former smoker Assessment/Plan All Active Problems (Last Reviewed 03/26/18 @ 06:59 by Camilla Villafuerte) MANISHA (obstructive sleep apnea) (Acute) Stenosis of right carotid artery (Resolved) Pseudomonal pneumonia (Acute) RECOMMENDATIONS: 1. Continue scheduled bronchodilators. 2. Transition from IV steroids to prednisone 40 mg daily by mouth, with plans for a 5-day burst at discharge. 3. The patient should utilize 6 L/min of continuous flow supplemental oxygen at all times. 4. Place palliative care referral for follow-up after discharge. 5. We will discuss potential trilogy initiation at his follow-up office visit. 6. The patient has been scheduled to follow-up with me in the pulmonary medicine clinic on May 20 at 1215. IMPRESSIONS: 1. Acute on chronic hypoxemic respiratory failure with baseline severe COPD/underlying pulmonary hypertension The patient presented to the emergency department with acute on chronic hypoxemic respiratory failure, after his called EMS due to erratic driving and behavior upon their return home last evening. The patient readily admitted to me that upon getting out of his vehicle he realized that he had ran out of supplemental oxygen. Therefore, it is most plausible, that the patients behavior and erratic driving was likely the consequence of severe hypoxemia. His chest imaging does not reveal findings concerning for an acute pulmonary infectious process. The patient's chest CT only revealed chronic interstitial changes and emphysema bilaterally. He does feel that he has returned to his baseline breathing quality. Based upon the patient's last 6-minute walk test and his current supplemental oxygen need, would recommend that the patient be maintained on 6 L/min of continuous flow supplemental oxygen at all times. Please place a referral to palliative care so that the patient can follow-up once discharged from the hospital. I will discuss potential trilogy initiation at his follow-up office visit with me. 2. Self-limited hemoptysis The patient does report that shortly after Thanksgiving he began to experienced episodes of blood-streaked sputum. He never called our pulmonary office and made an appointment to be seen. At this time, the patient may have been experiencing an underlying pulmonary infection that is resolving. He does not report further hemoptysis at this time. 3. Troponin elevation Likely secondary to demand ischemia in the setting of hypoxemia. This note was generated with [employer] software. It may contain incorrect words, spelling, and punctuation that were not noted in checking the note before signing. Code Visit Inpatient E&M: 77630 Subs Hosp L2
--- NOTE | 2018-05-03 11:24 | PCM.DC ---
You will use the following diet at home:: No restrictions Discharge Activity: Return to Normal Activity Call your doctor if you observe: Shortness of breath, Dizziness, Fainting spells, Chest pain Additional Instructions: Continue home oxygen 6 L during the day and at night continuously. Titrate to maintain O2 at or above 88%. Allergies/Adverse Reactions: Allergies No Known Allergies Allergy (Verified 03/26/18 07:00) Medications to take at Discharge Allopurinol [Zyloprim] 200 mg PO DAILY 11/16/17 Aspirin [Aspirin, Baby] 81 mg PO QHS 11/16/17 Cyanocobalamin [Vitamin B12] 1,000 mcg PO DAILY@0800 11/16/17 Metoprolol Succinate 12.5 mg PO DAILY 11/16/17 Omeprazole 20 mg PO QHS 11/16/17 Tiotropium [place] [Spiriva] 1 puff INHALATION DAILY 11/16/17 hydrALAZINE [Apresoline] 50 mg PO BID 11/16/17 albuterol sulfate HFA 90 mcg/actuation aerosol inhaler 2 puff INHALATION Q4H PRN 12/12/17 fluticasone 200 mcg-vilanterol 25 mcg/dose powder for inhalation 1 inh INHALATION DAILY #1 device 03/26/18 Prednisone See Taper PO DAILY #30 tab 05/03/18 The following prescriptions were given: Prednisone See Taper PO DAILY #30 tab Primary Care Physician: Azael Malone [Primary Care Provider] - Please follow up with your Primary Care Physician in: 1 Week Test Results: Test results from this visit will be discussed in further detail at your follow-up appointment, if applicable. Please Follow Up With: Shivam Velásquez DO When: 05/20/18 @ 12:15pm Please Follow Up With: Christiano Pearce DO - Palliative Care When: Office to call you to establish Proposed Discharge Date: 05/03/18
--- NOTE | 2018-05-03 11:31 | PCM.DC.SUM ---
Discharge Date and Diagnosis Date of Admission: 05/02/18 Date of Discharge: 05/03/18 - Primary Discharge Diagnosis 1. Acute on chronic hypoxic respiratory failure secondary to severe chronic COPD/pulmonary hypertension 2. Self limited hemoptysis 3. Elevated troponin, suspected demand ischemia as a result of #1 4. Lactic acidosis, reactive as a result of #1 5. Hyperkalemia, resolved 6. Hypertension 7. GERD 8. Gout 9. Chronic macrocytic anemia 10. Chronic kidney disease stage III 11. Palliative referral - Secondary Discharge Diagnosis Chronic Problems (Last Reviewed 03/26/18 @ 06:59 by Camilla Villafuerte) Non-rheumatic tricuspid valve insufficiency (Chronic) Essential (primary) hypertension (Chronic) Secondary pulmonary arterial hypertension (Chronic) Stage 2 moderate COPD by GOLD classification (Chronic) Lung nodule < 6cm on CT (Chronic) Empyema (Chronic) Acute and chronic respiratory failure (Chronic) CKD (chronic kidney disease) stage 3, GFR 30-59 ml/min (Chronic) Chronic respiratory failure with hypoxia (Chronic) HLD (hyperlipidemia) (Chronic) Hospital Course and Treatment Imaging Results: Diagnostic Data Chest X-Ray 05/01/18 19:30 IMPRESSION: Pulmonary fibrosis or interstitial lung disease unchanged Electronically Signed: Roverto Varner MD at 20:11 EST , Service support , Chest CT 05/02/18 11:03 IMPRESSION: Emphysema and fibrotic densities. Old granulomatous disease. Atherosclerosis. Atrophic right kidney Electronically Signed: Pietro Roe MD at 12:12 EST , Service support , Dr. Velásquez- Pulmonary Medicine Operations: None Procedures: None Summary of Care Provided: The patient is a 78 year old M admitted 05/02/2018 due to shortness of breath. 1. Acute on chronic hypoxic respiratory failure secondary to severe chronic COPD/pulmonary hypertension-patient was reported to have run out of his oxygen with documented hypoxia on admission. Pulmonary medicine following. Patient follows with Dr. Velásquez. CT of chest shows emphysema and fibrotic densities, old granulomatous disease. IV Solu-Medrol during admission. Transition to oral prednisone taper at discharge. Continue triple inhaler therapy. Continue supplement oxygen to maintain O2 at or above 88%. Patient will continue supplemental oxygen 6 L continuously with titration as needed. Follow-up with Dr. Velásquez 05/20/2017. Patient agreeable to palliative referral at discharge. Follow-up with primary care physician in 1 week. Patient's breathing at baseline. Patient will discuss trilogy initiation outpatient follow-up with pulmonary medicine. 2. Hemoptysis-resolved without intervention. Continue to monitor. 3. Elevated troponin-suspect demand ischemia as a result of #1. Troponin trended downward. EKG without ST-T changes. Patient denies chest pain. 4. Lactic acidosis-suspect reactive as a result of #1. Repeat lactic acid improved. 5. Hyperkalemia-resolved. 6. Hypertension-stable, continue metoprolol, hydralazine. Increase hydralazine to 50 mg p.o. 3 times daily. 7. GERD-continue PPI. 8. Gout-continue allopurinol. 9. Chronic macrocytic anemia- stable. B12, folate WNL. 10. 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 General: Alert, Oriented x3, Cooperative HEENT: Atraumatic, PERRLA, EOMI, Normocephalic Neck: Supple, No JVD, Negative Carotid Bruits Lungs: Diminished, Wheezes Cardiovascular: Regular rate, Regular Rhythm, Normal S1, Normal S2, No murmurs Abdomen: Bowel Sounds Present, Soft, Non Tender, Non-Distended Extremities: No clubbing, No cyanosis, No edema, Capillary Refill Less than 3 Seconds Skin: No rashes, No breakdown Musculoskeletal: No Tenderness to Palpation of Joints or Extremities Neurological: Cranial nerves II-XII grossly intact, Neuro grossly intact Psych/Mental Status: Normal Affect, Appropriate Patient seen and examined prior to discharge. Physical assessment as noted above. Patient is stable for discharge with follow up recommendations as noted above. This patient was seen by YONI Robert under the supervision of Dr. Arellano. - Physical Exam Vital Signs Temp Pulse Resp BP Pulse Ox 97.6 F L 99 18 167/67 H 91 05/03/18 09:50 05/03/18 10:57 05/03/18 10:30 05/03/18 09:50 05/03/18 10:58 Oxygen Flow Rate (L/min) 6 Oxygen Delivery Method Nasal Cannula Weight: 162 lb 7.691 oz Body Mass Index (BMI) 22.6 Intake and Output for Last 24 Hours 05/01/18 05/02/18 05/03/18 23:59 23:59 23:59 Intake Total 3448 / 3448 Balance 3448 / 3448 Microbiology Past 72 Hours 05/02/18 08:12 Respiratory Panel (PCR) - Final Mucosa - Nasopharyngeal 05/01/18 19:40 Influenza Types A,B Direct FA (SHERITA) - Final Mucosa - Nasopharyngeal Laboratory Tests Past 24 Hrs 05/02/18 05/02/18 05/03/18 19:20 19:20 06:57 WBC 10.5 RBC 2.91 L Hgb 11.0 L Hct 32.0 L MCV 110.0 H MCH 37.8 H MCHC 34.4 RDW 14.8 H RDW Differential 59.1 H Plt Count 127 L MPV 11.9 Sodium Potassium Chloride Carbon Dioxide Anion Gap BUN Creatinine Estim Creat Clear Calc Est GFR (MDRD) Af Amer Est GFR (MDRD) Non-Af BUN/Creatinine Ratio Glucose Calcium Vitamin B12 1091 H Folate 23.60 05/03/18 06:57 WBC RBC Hgb Hct MCV MCH MCHC RDW RDW Differential Plt Count MPV Sodium 138 Potassium 4.6 Chloride 108 H Carbon Dioxide 18.0 L Anion Gap 12 BUN 43 H Creatinine 1.94 H Estim Creat Clear Calc 33.77 Est GFR (MDRD) Af Amer 44 L Est GFR (MDRD) Non-Af 36 L BUN/Creatinine Ratio 22.2 H Glucose 178 H Calcium 8.2 L Vitamin B12 Folate Discharge Diet: No Restrictions Discharge Activity: Return to Normal Activity Call your doctor if you observe: Shortness of breath, Dizziness, Fainting spells, Chest pain Home Medications: Medications to take at Discharge Allopurinol [Zyloprim] 200 mg PO DAILY 11/16/17 Aspirin [Aspirin, Baby] 81 mg PO QHS 11/16/17 Cyanocobalamin [Vitamin B12] 1,000 mcg PO DAILY@0800 11/16/17 Metoprolol Succinate 12.5 mg PO DAILY 11/16/17 Omeprazole 20 mg PO QHS 11/16/17 Tiotropium [place] [Spiriva] 1 puff INHALATION DAILY 11/16/17 albuterol sulfate HFA 90 mcg/actuation aerosol inhaler 2 puff INHALATION Q4H PRN 12/12/17 fluticasone 200 mcg-vilanterol 25 mcg/dose powder for inhalation 1 inh INHALATION DAILY #1 device 03/26/18 Prednisone See Taper PO DAILY #30 tab 05/03/18 hydrALAZINE [Apresoline] 50 mg PO TID #30 tab 05/03/18 Following Prescrptions Were Given to Patient: Prednisone See Taper PO DAILY #30 tab hydrALAZINE [Apresoline] 50 mg PO TID #30 tab Primary Care Physician: Azael Malone [Primary Care Provider] - Please follow up with your Primary Care Physician in: 1 Week Please Follow Up With: Shivam Velásquez DO When: 05/20/18 @ 12:15pm Please Follow Up With: Christiano Pearce DO - Palliative Care When: Office to call you to establish Disposition: Home - With palliative care Minutes spent on discharge:: 35 Patient Condition:: Stable Medical Necessity - Tobacco Use Smoking Status: Former smoker Meaningful Use Info Meaningful Use Diagnoses (Choose all that apply): None applicable
--- NOTE | 2018-05-06 14:33 | CASEMGMT ---
RN RANJAN DC Phone Call DC DATE: 05-03-18 DC Disposition: Home LACE/STRATA: 03/16 Intro role of CM to patient via phone. No questions re: prescriptions, f/u or dc instructions. Pt states he has been feeling better. ELISABET WOODRUFF inquired re: care improvement suggestinos. Pt states he has none. Lo JOHNSONN RN ACM
== END 2018-05-03 12:13 | disposition home or self-care (01) | DRG 189 ==
LOC: ED 20:27 → PCU 22:59
PROVIDERS: Nurse Practitioner Family; Admitting Provider Student in an Organized Health Care Education/Training Program; Emergency Provider Emergency Medicine; Family Provider Internal Medicine; PCP Internal Medicine; Referring Provider Student in an Organized Health Care Education/Training Program; Visit Provider Internal Medicine
DX: J96.21 Acute and chronic respiratory failure with hypoxia (principal); E87.2 Acidosis; I24.8 Other forms of acute ischemic heart disease; R04.2 Hemoptysis; N18.4 Chronic kidney disease, stage 4 (severe); M10.9 Gout, unspecified; E87.5 Hyperkalemia; K21.9 Gastro-esophageal reflux disease without esophagitis; I27.21 Secondary pulmonary arterial hypertension; I12.9 Hypertensive chronic kidney disease with stage 1 through stage 4 chronic kidney disease, or unspecified chronic kidney disease; E78.5 Hyperlipidemia, unspecified; J44.9 Chronic obstructive pulmonary disease, unspecified; Z99.81 Dependence on supplemental oxygen; D53.9 Nutritional anemia, unspecified; Z87.891 Personal history of nicotine dependence; Z79.899 Other long term (current) drug therapy
CPT/HCPCS: 36415; 36600; 71045; 71250; 80048; 82607; 82746; 82803; 83605; 84484; 85025; 85027; 85610; 85730; 87633; 87804; 93005; 94640; 97802; 99285; J7030; A4216

== ENCOUNTER → 2018-05-20 13:26 | Outpatient (CLI) | payer MEDICARE, BC, SELFPAY ==
[2018-05-20 12:09] VITALS: BMI 22.1
--- NOTE | 2018-05-20 13:28 | CT_ITS ---
STUDY: CT CHEST WITHOUT CONTRAST REASON FOR EXAM: Male, 78 years old. One-month history of cough and hemoptysis. Chronic smoker. COPD. History of bladder cancer. RADIATION DOSAGE (If Supplied By Facility): CTDIvol = ( 8.53 ) mGy, DLP = ( 349.79 ) mGycm TECHNIQUE: Transaxial imaging was performed without the administration of intravenous contrast material. Multiplanar coronal and sagittal images were reformatted. Individualized dose optimization techniques were used for this CT. COMPARISON: Comparison is made with prior examination dated May 02, 2018. FINDINGS: Hyperinflation. Stable increased interstitial markings with groundglass appearance in both lungs. There is a stable 3.6 cm bulla in the posterior medial segment of the right lower lobe. The previously seen right pleural effusion as cleared. There are calcifications of the coronary arteries. There are multiple small lymph nodes within the mediastinum, which are normal in size and morphology most compatible with reactive lymph hyperplasia. Calcified right hilar lymph nodes. Normal unenhanced pulmonary arteries. There is atherosclerotic calcification of the aortic arch with tortuosity and elongation of the aortic arch and descending thoracic aorta. There are mild degenerative changes of the thoracic spine. There is no demonstrated abnormality of the visualized upper abdomen. CT/Chest without Contrast IMPRESSION: Hyperinflation. Stable increased markings in both lungs suggestive of scarring as well as a stable bullous formation in the posterior medial segment of the right lower lobe. Electronically Signed: Douglas Rivera MD at 14:05 EST Tel [phone], Service support ,
== END ==
PROVIDERS: Family Provider Internal Medicine; PCP Internal Medicine; Referring Provider Internal Medicine Critical Care Medicine; Visit Provider Internal Medicine Critical Care Medicine
DX: R04.2 Hemoptysis (principal)
CPT/HCPCS: 71250

== ENCOUNTER → 2018-05-28 13:13 | Outpatient (CLI) | payer MEDICARE, BC, SELFPAY ==
[2018-05-27 13:37] VITALS: BMI 22.3
[2018-05-28 14:21] LABS: Base Excess -7 mmol/L (-2 to +2); Bicarbonate 18.2 mmol/L (22-26); Blood Gas Specimen Type ART; O2 Delivery Device Nasal Can; PO2 52 mmHG (75-100); SITE L Brachial; SO2 85 % (95-99); Time Given 1206; Total Carbon Dioxide 19 mmol/L; pCO2 32.9 mmHg (35-45); pH 7.35 (7.35-7.45)
== END ==
PROVIDERS: Family Provider Internal Medicine; PCP Internal Medicine; Referring Provider Nurse Practitioner Acute Care; Visit Provider Nurse Practitioner Acute Care
DX: R04.2 Hemoptysis (principal)
CPT/HCPCS: 36600; 82803; 87070; 87077; 87186; 87205